=== PATIENT | male | born 1980 | race Caucasian/White ===

== ENCOUNTER 2018-01-30 08:19 | Emergency (ER) | payer OTHER ==
--- NOTE | 2018-01-30 10:04 | RAD REPORT ---
EXAM DESCRIPTION: RAD - Hand Left 3 View - 01/30/2018 9:30 am CLINICAL HISTORY: Pain;Swelling;Animal bite Puncture wounds. COMPARISON: No comparisons FINDINGS: No fracture, dislocation or radiopaque foreign body is appreciated. No worrisome subcutane ous gas. Soft tissue swelling is present particularly about the first digit and thenar region.
--- NOTE | 2018-01-30 10:11 | EDPHYS ---
Physician Documentation [facility] Name: Flakito Claudio Age: 37 yrs Sex: Male : 1980 Arrival Date: 01/30/2018 Time: 08:23 Bed 13 Private MD: None, None ED Physician Elias Marshall HPI: 01/30 09:26 This 37 yrs old Male presents to ER via Ambulatory with complaints of Dog rn Bite. 09:26 The patient was bitten on the left hand. Onset: The symptoms/episode began/occurred rn yesterday. Animal information: Animal's vaccinations are up to date. Secondary to the bite the patient reports swelling. Severity of symptoms: At their worst the symptoms were mild, in the emergency department the symptoms are unchanged. The patient has not experienced similar symptoms in the past. Reports his polish olguin bit him on left hand yesterday, vaccines UTD, reports woke up with worse swelling and pain, no drainage, no fever. . Historical: - Allergies: 08:51 No Known Allergies; hb - Home Meds: 08:51 None [Active]; hb - PMHx: 08:51 None; hb - PSHx: 08:51 Intussusception; hb - Immunization history:: Adult Immunizations up to date. - Social history:: Smoking status: Patient uses tobacco products, smokes one pack cigarettes per day. - Ebola Screening: : No symptoms or risks identified at this time. - Family history:: not pertinent. - Hospitalizations: : No recent hospitalization is reported. ROS: 09:26 Constitutional: Negative for fever, chills, and weight loss, MS/Extremity: + left hand rn dog bite and swelling Exam: 09:26 Constitutional: This is a well developed, well nourished patient who is awake, alert, rn and in no acute distress. MS/ Extremity: Pulses equal, no cyanosis. Neurovascular intact. No fusiform digits, no fluctuance, + 3 puncture wounds to left hand around dorsum and volar base of thumb. No proximal streaking. Vital Signs: 08:48 BP 151 / 100; Pulse 76; Resp 15; Temp 98.8; Pulse Ox 100% ; Weight 81.65 kg; Height 5 hb ft. 3 in. (160.02 cm); Pain 8/10; 09:45 BP 134 / 92; Pulse 74; Resp 14; Pulse Ox 100% on R/A; hb 08:48 Body Mass Index 31.89 (81.65 kg, 160.02 cm) hb MDM: 09:08 Patient medically screened. rn 10:09 Differential diagnosis: superficial laceration, tendon injury, cellulitis. Data rn reviewed: vital signs, nurses notes, radiologic studies, plain films, and as a result, I will discharge patient. Counseling: I had a detailed discussion with the patient and/or guardian regarding: the historical points, exam findings, and any diagnostic results supporting the discharge/admit diagnosis, radiology results, the need for outpatient follow up, to return to the emergency department if symptoms worsen or persist or if there are any questions or concerns that arise at home. Special discussion: I discussed with the patient/guardian in detail that at this point there is no indication for admission to the hospital. It is understood, however, that if the symptoms persist or worsen the patient needs to return immediately for re-evaluation. 01/30 09:13 Order name: XRAY Hand LEFT 3 View; Complete Time: 10:09 rn Administered Medications: No medications were administered Disposition: 01/30/18 10:10 Discharged to Home. Impression: Bitten by dog, Cellulitis of left upper limb. - Condition is Stable. - Discharge Instructions: Cellulitis, Animal Bite. - Prescriptions for Augmentin 875- 125 mg Oral Tablet - take 1 tablet by ORAL route every 12 hours for 10 days; 20 tablet. Clindamycin HCl 300 mg Oral Capsule - take 1 capsule by ORAL route every 6 hours for 10 days; 40 capsule. - Medication Reconciliation Form, Thank You Letter, Antibiotic Education, Prescription Opioid Use, Work release form form. - Follow up: Fam Caldwell MD; When: 5 - 6 days; Reason: Recheck today's complaints, Re-evaluation by your physician. - Problem is new. - Symptoms have improved. Signatures: Dispatcher [employer] EDMS Elias Marshall MD MD rn Baxter, Heather, RN RN Corrections: (The following items were deleted from the chart) 10:31 10:10 01/30/2018 10:10 Discharged to Home. Impression: Bitten by dog; Cellulitis of hb left upper limb. Condition is Stable. Forms are Medication Reconciliation Form, Thank You Letter, Antibiotic Education, Prescription Opioid Use. Follow up: Fam Caldwell; When: 5 - 6 days; Reason: Recheck today's complaints, Re-evaluation by your physician. Problem is new. Symptoms have improved. rn
--- NOTE | 2018-01-30 10:11 | ER ---
Nurse's Notes [facility] Name: Flakito Claudio Age: 37 yrs Sex: Male : 1980 Arrival Date: 01/30/2018 Time: 08:23 Bed 13 Private MD: None, None Diagnosis: Bitten by dog;Cellulitis of left upper limb Presentation: 01/30 08:49 Presenting complaint: Patient states: Bit on LEFT hand by family dog yesterday, c/o hb swelling and pain 8/10. Vaccines up to date. Transition of care: patient was not received from another setting of care. Onset of symptoms was January 29, 2018. Risk Assessment: Do you want to hurt yourself or someone else? Patient reports no desire to harm self or others. Initial Sepsis Screen: Does the patient meet any 2 criteria? No. Patient's initial sepsis screen is negative. Does the patient have a suspected source of infection? No. Patient's initial sepsis screen is negative. Care prior to arrival: None. 08:49 Method Of Arrival: Ambulatory hb 08:49 Acuity: SUJATHA 3 hb Triage Assessment: 09:00 Bite description: bite sustained to left hand by a dog, animal information: hb vaccination(s) is current. Historical: - Allergies: 08:51 No Known Allergies; hb - Home Meds: 08:51 None [Active]; hb - PMHx: 08:51 None; hb - PSHx: 08:51 Intussusception; hb - Immunization history:: Adult Immunizations up to date. - Social history:: Smoking status: Patient uses tobacco products, smokes one pack cigarettes per day. - Ebola Screening: : No symptoms or risks identified at this time. - Family history:: not pertinent. - Hospitalizations: : No recent hospitalization is reported. Screenin:52 Abuse screen: Denies threats or abuse. Denies injuries from another. Nutritional hb screening: No deficits noted. Tuberculosis screening: No symptoms or risk factors identified. Fall Risk None identified. Assessment: 08:52 General: Appears in no apparent distress. Behavior is calm, cooperative. Pain: Pain hb currently is 8 out of 10 on a pain scale. Neuro: Level of Consciousness is awake, alert, obeys commands, Oriented to person, place, time, situation. Cardiovascular: Capillary refill < 3 seconds Patient's skin is warm and dry. Respiratory: Airway is patent Respiratory effort is even, unlabored, Respiratory pattern is regular, symmetrical. GI: No signs and/or symptoms were reported involving the gastrointestinal system. : No signs and/or symptoms were reported regarding the genitourinary system. EENT: No signs and/or symptoms were reported regarding the EENT system. Derm: Skin is healthy with good turgor, Skin is pink, warm \T\ dry. Musculoskeletal: No signs and/or symptoms reported regarding the musculoskeletal system. Injury Description: Bite sustained to left hand caused by a dog, is from animal, was sustained 12-24 hours ago. 09:45 Reassessment: Patient appears in no apparent distress at this time. No changes from previously documented assessment. Patient and/or family updated on plan of care and expected duration. Pain level reassessed. Patient is alert, oriented x 3, equal unlabored respirations, skin warm/dry/pink. Vital Signs: 08:48 BP 151 / 100; Pulse 76; Resp 15; Temp 98.8; Pulse Ox 100% ; Weight 81.65 kg; Height 5 hb ft. 3 in. (160.02 cm); Pain 8/10; 09:45 BP 134 / 92; Pulse 74; Resp 14; Pulse Ox 100% on R/A; hb 08:48 Body Mass Index 31.89 (81.65 kg, 160.02 cm) hb ED Course: 08:23 Patient arrived in ED. mr 08:23 None, None is Private Physician. mr 08:48 Jennifer Oneil, RN is Primary Nurse. hb 08:50 Triage completed. hb 08:52 Arm band placed on right wrist. hb 08:52 Patient has correct armband on for positive identification. Bed in low position. Call hb light in reach. Side rails up X 1. 09:08 Elias Marshall MD is Attending Physician. rn 09:27 X-ray completed. Portable x-ray completed in exam room. Patient tolerated procedure sw well. 09:28 XRAY Hand LEFT 3 View In Process Unspecified. EDMS 10:10 Fam Caldwell MD is Referral Physician. rn 10:30 No provider procedures requiring assistance completed. Patient did not have IV access hb during this emergency room visit. Administered Medications: No medications were administered Outcome: 10:10 Discharge ordered by . rn 10:30 Discharged to home ambulatory. hb 10:30 Condition: stable 10:30 Discharge instructions given to patient, Instructed on discharge instructions, follow up and referral plans. medication usage, wound care, Demonstrated understanding of instructions, follow-up care, medications, wound care, Prescriptions given X 2. 10:31 Patient left the ED. hb Signatures: Dispatcher [employer] EDNE Lizzy Solorzano Roman, MD MD rn Warren, Shannon sw Baxter, Heather, RN RN hb
== END 2018-01-30 10:31 | disposition home or self-care (01) ==
LOC: ER 08:19
DX: L03.114 Cellulitis of left upper limb (principal); S41.152A Open bite of left upper arm, initial encounter; F17.210 Nicotine dependence, cigarettes, uncomplicated; W54.0XXA Bitten by dog, initial encounter; Y93.89 Activity, other specified; Y92.9 Unspecified place or not applicable; Y99.9 Unspecified external cause status
CPT/HCPCS: 99283

== ENCOUNTER 2018-09-08 12:38 | Emergency (ER) | payer OTHER, SELFPAY ==
[2018-09-08 13:54] LABS: Absolute Lymphocytes (CBC) 0.6 K/uL (0.7-4.9); Absolute Monocytes 0.2 K/uL (0.1-1.3); Basophils % 0.2 % (0-1.3); Eosinophils % 0.1 % (0-4.4); Hematocrit 44.7 % (39.6-49.0); Lymphocytes % 15.6 % (15.3-44.8); MPV 8.3 fL (7.6-11.3); Monocytes % 5.9 % (3.3-12.3); RBC Red Blood Cell Count 4.89 M/uL (4.33-5.43)
[2018-09-08 14:11] LABS: Albumin 3.9 g/dL (3.4-5.0); Bilirubin Direct 0.3 mg/dL (0-0.2); Bilirubin Total 1.2 mg/dL (0.2-1.0); Potassium 3.2 mmol/L (3.5-5.1)
[2018-09-08] MEDS ORDERED: NA CHLORIDE 0.9% 1,000 ML ONE (14:16)
[2018-09-08 14:36] LABS: Urine Blood NEGATIVE (NEG); Urine Glucose NEGATIVE (NEG); Urine Protein 2+ (NEG); Urine pH 5.5 (5.0-7.0)
--- NOTE | 2018-09-08 14:47 | RAD REPORT ---
EXAM DESCRIPTION: CTAbdomen Pelvis W Contrast - 09/08/2018 2:38 pm CLINICAL HISTORY: Abdominal pain. iv only;Abd pain COMPARISON: No comparisons TECHNIQUE: Biphasic CT imaging of the abdomen and pelvis was performed with 100 ml non-ionic IV cont rast. All CT scans are performed using dose optimization technique as appropriate and may include automated exposure control or mA/KV adjustment according to patient size. FINDINGS: The lung bases are clear.Small gallbladder stone may be present. The liver, spleen, pancreas, adrenal glands and kidneys are within normal limits. No bowel obstruction, free air, free fluid or abscess. The appendix is not identified as a discrete structure, however, no secondary findings of appendicitis are identified. No evidence of significan t lymphadenopathy. No suspicious bony findings. Small bilateral fat containing inguinal hernias. IMPRESSION: No acute intra-abdominal or pelvic finding. Equivocal cholelithiasis.
--- NOTE | 2018-09-08 16:18 | ER ---
Nurse's Notes [facility] Name: Flakito Claudio Age: 37 yrs Sex: Male : 1980 Arrival Date: 09/08/2018 Time: 12:41 Bed 30 Private MD: Diagnosis: Diarrhea, unspecified;Abdominal and pelvic pain Presentation: 09/08 13:12 Presenting complaint: Patient states: pt reports abdominal pain since , not tl3 tolerating PO intake, tactile fever last pm, diarrhea since as well. Transition of care: patient was not received from another setting of care. Onset of symptoms was September 03, 2018. Risk Assessment: Do you want to hurt yourself or someone else? Patient reports no desire to harm self or others. Initial Sepsis Screen: Does the patient meet any 2 criteria? No. Patient's initial sepsis screen is negative. Does the patient have a suspected source of infection? No. Patient's initial sepsis screen is negative. Care prior to arrival: None. 13:12 Method Of Arrival: Ambulatory tl3 13:12 Acuity: SUJATHA 3 tl3 Triage Assessment: 13:16 General: Appears uncomfortable, well groomed, well developed, well nourished, Behavior tl3 is calm, cooperative, appropriate for age. Pain: Complains of pain in abdomen. EENT: No signs and/or symptoms were reported regarding the EENT system. Neuro: Level of Consciousness is awake, alert, obeys commands, Oriented to person, place, time, situation, Appropriate for age. Cardiovascular: Patient's skin is warm and dry. Respiratory: Airway is patent Respiratory effort is even, unlabored, Respiratory pattern is regular, symmetrical. GI: Abdomen is round. : No signs and/or symptoms were reported regarding the genitourinary system. Historical: - Allergies: 13:16 No Known Allergies; tl3 - Home Meds: 13:16 None [Active]; tl3 - PMHx: 13:16 intussusception; tl3 - Immunization history:: Adult Immunizations up to date. - Social history:: Smoking status: Patient uses tobacco products, smokes one pack cigarettes per day. Patient uses alcohol, occasionally. street drugs, marijuana. - Ebola Screening: : No symptoms or risks identified at this time. Screenin:19 Abuse screen: Denies threats or abuse. Nutritional screening: No deficits noted. tl3 Tuberculosis screening: No symptoms or risk factors identified. Fall Risk None identified. Assessment: 13:19 Reassessment: No changes from previously documented assessment. tl3 14:09 Reassessment: Patient appears in no apparent distress at this time. No changes from tl3 previously documented assessment. Patient and/or family updated on plan of care and expected duration. Pain level reassessed. Patient is alert, oriented x 3, equal unlabored respirations, skin warm/dry/pink. 15:23 Reassessment: Patient appears in no apparent distress at this time. No changes from tl3 previously documented assessment. Patient and/or family updated on plan of care and expected duration. Pain level reassessed. Patient is alert, oriented x 3, equal unlabored respirations, skin warm/dry/pink. obtained stool sample and sent to lab. 16:08 Reassessment: Patient appears in no apparent distress at this time. No changes from tl3 previously documented assessment. Patient and/or family updated on plan of care and expected duration. Pain level reassessed. Patient is alert, oriented x 3, equal unlabored respirations, skin warm/dry/pink. pt sleeping, arouses easily. 16:30 Reassessment: Patient appears in no apparent distress at this time. No changes from tl3 previously documented assessment. Patient and/or family updated on plan of care and expected duration. Pain level reassessed. Patient is alert, oriented x 3, equal unlabored respirations, skin warm/dry/pink. pt being discharged. 16:31 GI: Bowel sounds present X 4 quads. Abd is soft and non tender. tl3 Vital Signs: 13:16 BP 117 / 62; Pulse 78; Resp 18; Pulse Ox 97% ; tl3 14:09 BP 128 / 75; Pulse 75; Resp 18; Pulse Ox 97% on R/A; tl3 16:08 BP 137 / 85; Pulse 64; Resp 18; Pulse Ox 99% on R/A; tl3 ED Course: 12:41 Patient arrived in ED. rg4 13:04 Christin Hunter, JESSICA is Primary Nurse. tl3 13:06 Reid Haque PA is PHCP. jr8 13:06 Francisco Whiteside MD is Attending Physician. jr8 13:14 Triage completed. tl3 13:16 Arm band placed on right wrist. tl3 13:19 Patient has correct armband on for positive identification. Bed in low position. Call tl3 light in reach. Side rails up X 1. Pulse ox on. NIBP on. 13:19 No provider procedures requiring assistance completed. tl3 13:40 Initial lab(s) drawn, by me, sent to lab. Inserted saline lock: 20 gauge in right jp3 antecubital area, using aseptic technique. Blood collected. 13:47 Warm blanket given. jp3 13:47 Basic Metabolic Panel Sent. jp3 13:47 CBC with Diff Sent. jp3 13:47 Creatinine for Radiology Sent. jp3 13:47 Hepatic Function Sent. jp3 13:47 Lipase Sent. jp3 14:38 CT completed. Patient moved to CT. Patient moved back from CT. ga 14:39 CT Abd/Pelvis - W/Contrast In Process Unspecified. EDDE 16:16 Ryland Alvarenga MD is Referral Physician. jr8 16:30 IV discontinued, intact, bleeding controlled, No redness/swelling at site. Pressure tl3 dressing applied. Administered Medications: 14:09 Drug: NS 0.9% 1000 ml Route: IV; Rate: 1000 ml; Site: right antecubital; Delivery: tl3 Primary tubing; 15:55 Follow up: IV Status: Completed infusion; IV Intake: 1000ml tl3 Intake: 15:55 IV: 1000ml; Total: 1000ml. tl3 Outcome: 16:16 Discharge ordered by . jr8 16:30 Discharged to home ambulatory. tl3 16:30 Condition: stable 16:30 Discharge instructions given to patient, family, Instructed on discharge instructions, follow up and referral plans. medication usage, Demonstrated understanding of instructions, follow-up care, medications, Prescriptions given X 3. 16:31 Patient left the ED. tl3 Signatures: Dispatcher [employer] EDDE Reid Haque PA PA jr8 Kallie Ray4 Manpreet Whitmore Tammy, RN RN tl3 John Gonzalez jp3
--- NOTE | 2018-09-08 16:18 | EDPHYS ---
Physician Documentation [facility] Name: Flakito Claudio Age: 37 yrs Sex: Male : 1980 Arrival Date: 09/08/2018 Time: 12:41 Bed 30 Private MD: ED Physician Francisco Whiteside HPI: 09/08 13:25 This 37 yrs old Male presents to ER via Ambulatory with complaints of jr8 Abdominal Pain. 13:25 The patient presents with abdominal pain in the epigastric area, in the upper abdomen. jr8 Onset: The symptoms/episode began/occurred acutely, 5 day(s) ago. The symptoms do not radiate. Associated signs and symptoms: Pertinent positives: diarrhea, Pertinent negatives: nausea and vomiting. The symptoms are described as crampy. Modifying factors: The symptoms are alleviated by nothing, the symptoms are aggravated by food. Severity of pain: At its worst the pain was moderate in the emergency department the pain is unchanged. The patient has not experienced similar symptoms in the past. The patient has not recently seen a physician. Historical: - Allergies: 13:16 No Known Allergies; tl3 - Home Meds: 13:16 None [Active]; tl3 - PMHx: 13:16 intussusception; tl3 - Immunization history:: Adult Immunizations up to date. - Social history:: Smoking status: Patient uses tobacco products, smokes one pack cigarettes per day. Patient uses alcohol, occasionally. street drugs, marijuana. - Ebola Screening: : No symptoms or risks identified at this time. ROS: 13:25 Eyes: Negative for injury, pain, redness, and discharge, ENT: Negative for injury, jr8 pain, and discharge, Neck: Negative for injury, pain, and swelling, Cardiovascular: Negative for chest pain, palpitations, and edema, Respiratory: Negative for shortness of breath, cough, wheezing, and pleuritic chest pain, Back: Negative for injury and pain, MS/Extremity: Negative for injury and deformity, Skin: Negative for injury, rash, and discoloration, Neuro: Negative for headache, weakness, numbness, tingling, and seizure. 13:25 Abdomen/GI: Positive for abdominal pain, diarrhea, abdominal cramps, rectal bleeding, Negative for nausea and vomiting, abdominal distension, anorexia, dysphagia, hematemesis, black/tarry stool, rectal pain, bowel incontinence, flatulence. Exam: 13:25 Eyes: Pupils equal round and reactive to light, extra-ocular motions intact. Lids and jr8 lashes normal. Conjunctiva and sclera are non-icteric and not injected. Cornea within normal limits. Periorbital areas with no swelling, redness, or edema. ENT: Nares patent. No nasal discharge, no septal abnormalities noted. Tympanic membranes are normal and external auditory canals are clear. Oropharynx with no redness, swelling, or masses, exudates, or evidence of obstruction, uvula midline. Mucous membranes moist. Neck: Trachea midline, no thyromegaly or masses palpated, and no cervical lymphadenopathy. Supple, full range of motion without nuchal rigidity, or vertebral point tenderness. No Meningismus. Cardiovascular: Regular rate and rhythm with a normal S1 and S2. No gallops, murmurs, or rubs. Normal PMI, no JVD. No pulse deficits. Respiratory: Lungs have equal breath sounds bilaterally, clear to auscultation and percussion. No rales, rhonchi or wheezes noted. No increased work of breathing, no retractions or nasal flaring. Back: No spinal tenderness. No costovertebral tenderness. Full range of motion. Skin: Warm, dry with normal turgor. Normal color with no rashes, no lesions, and no evidence of cellulitis. MS/ Extremity: Pulses equal, no cyanosis. Neurovascular intact. Full, normal range of motion. Neuro: Awake and alert, GCS 15, oriented to person, place, time, and situation. Cranial nerves II-XII grossly intact. Motor strength 5/5 in all extremities. Sensory grossly intact. Cerebellar exam normal. Normal gait. 13:25 Abdomen/GI: Inspection: abdomen appears normal, Bowel sounds: hyperactive, in all quadrants, Palpation: soft, in all quadrants, moderate abdominal tenderness, in the epigastric area, right upper quadrant and right lower quadrant, mass, is not appreciated, rebound tenderness, is not appreciated, voluntary guarding, is not appreciated, involuntary guarding, is not appreciated, no appreciated organomegaly, Indicators: McBurney's point is not tender, Contreras's sign is negative, Rovsing's sign is negative, Liver: tenderness, is not appreciated. Vital Signs: 13:16 BP 117 / 62; Pulse 78; Resp 18; Pulse Ox 97% ; tl3 14:09 BP 128 / 75; Pulse 75; Resp 18; Pulse Ox 97% on R/A; tl3 16:08 BP 137 / 85; Pulse 64; Resp 18; Pulse Ox 99% on R/A; tl3 MDM: 13:06 Patient medically screened. jr8 16:15 Data reviewed: vital signs, nurses notes, lab test result(s), radiologic studies, CT jr8 scan, and as a result, I will discharge patient. Data interpreted: Pulse oximetry: on room air is 99 %. Interpretation: normal. Counseling: I had a detailed discussion with the patient and/or guardian regarding: the historical points, exam findings, and any diagnostic results supporting the discharge/admit diagnosis, lab results, radiology results, the need for outpatient follow up, a family practitioner, a rfid specialist, to return to the emergency department if symptoms worsen or persist or if there are any questions or concerns that arise at home. Response to treatment: the patient's symptoms have mildly improved after treatment. 09/08 13:27 Order name: Basic Metabolic Panel; Complete Time: 14:16 [facility] 09/08 13:27 Order name: CBC with Diff; Complete Time: 14:05 09/08 13:27 Order name: Creatinine for Radiology; Complete Time: 14:11 09/08 13:27 Order name: Hepatic Function; Complete Time: 14:16 09/08 13:27 Order name: Lipase; Complete Time: 14:16 09/08 14:26 Order name: Urine Dipstick--Ancillary (enter results); Complete Time: 14:40 09/08 13:27 Order name: IV Saline Lock; Complete Time: 13:47 09/08 14:05 Order name: CT Abd/Pelvis - W/Contrast; Complete Time: 14:53 09/08 14:59 Order name: Stool Culture 09/08 14:59 Order name: Ova And Parasites 09/08 14:59 Order name: Occult Blood 09/08 14:59 Order name: Fecal Leukocyte Stain; Complete Time: 16:12 09/08 14:59 Order name: CDIFF 09/08 13:27 Order name: Labs collected and sent; Complete Time: 13:47 09/08 13:27 Order name: Urine Dipstick-Ancillary (obtain specimen); Complete Time: 15:23 jr8 Administered Medications: 14:09 Drug: NS 0.9% 1000 ml Route: IV; Rate: 1000 ml; Site: right antecubital; Delivery: tl3 Primary tubing; 15:55 Follow up: IV Status: Completed infusion; IV Intake: 1000ml tl3 Disposition: 17:49 Co-signature as Attending Physician, Francisco Whiteside MD. Disposition: 09/08/18 16:16 Discharged to Home. Impression: Diarrhea, unspecified, Abdominal and pelvic pain. - Condition is Stable. - Discharge Instructions: Abdominal Pain, Adult, Diarrhea, Adult. - Prescriptions for Bentyl 20 mg Oral Tablet - take 1 tablet by ORAL route every 6 hours As needed; 20 tablet. Cipro 500 mg Oral Tablet - take 1 tablet by ORAL route every 12 hours for 10 days; 20 tablet. Flagyl 500 mg Oral Tablet - take 1 tablet by ORAL route every 6 hours for 10 days; 40 tablet. - Medication Reconciliation Form, Thank You Letter, Antibiotic Education, Prescription Opioid Use form. - Follow up: Ryland Alvarenga MD; When: 5 - 6 days; Reason: Recheck today's complaints, Continuance of care, Re-evaluation by your physician. - Problem is new. - Symptoms have improved. Signatures: Dispatcher [employer] EDMS Reid Haque PA PA jr8 Francisco Whiteside MD MD Christin Hunter RN RN tl3 Corrections: (The following items were deleted from the chart) 16:31 16:16 09/08/2018 16:16 Discharged to Home. Impression: Diarrhea, unspecified; Abdominal tl3 and pelvic pain. Condition is Stable. Forms are Medication Reconciliation Form, Thank You Letter, Antibiotic Education, Prescription Opioid Use. Follow up: Ryland Alvarenga; When: 5 - 6 days; Reason: Recheck today's complaints, Continuance of care, Re-evaluation by your physician. Problem is new. Symptoms have improved. jr8
== END 2018-09-08 16:31 | disposition home or self-care (01) ==
LOC: ER 12:38
DX: R19.7 Diarrhea, unspecified (principal); F17.210 Nicotine dependence, cigarettes, uncomplicated
CPT/HCPCS: 36415; 74177; 80048; 80076; 81003; 83690; 85025; 87045; 87046; 87177; 87209; 87493; 89055; 96360; 96361; 99284; J7030; Q9967

== ENCOUNTER 2020-11-01 03:32 | Emergency (ER) | payer SELFPAY ==
--- NOTE | 2020-11-01 04:38 | ER ---
Nurse's Notes [facility] Name: Flakito Claudio Age: 40 yrs Sex: Male : 1980 Arrival Date: 11/01/2020 Time: 03:33 Bed Waiting Private MD: Diagnosis: Presentation: 11/01 03:51 Chief complaint: Patient states: last night at approx 2200 he started having abdominal bb pain took some tums but they are not helping pain is worse denies vomiting or diarrhea, can't remember his last bowel movement. Coronavirus screen: At this time, the client does not indicate any symptoms associated with coronavirus-19. Ebola Screen: No symptoms or risks identified at this time. Initial Sepsis Screen: Does the patient meet any 2 criteria? No. Patient's initial sepsis screen is negative. Does the patient have a suspected source of infection? No. Patient's initial sepsis screen is negative. Risk Assessment: Do you want to hurt yourself or someone else? Patient reports no desire to harm self or others. Onset of symptoms was October 31, 2020. 03:51 Method Of Arrival: Wheelchair bb 03:51 Acuity: SUJATHA 3 bb 04:37 Note pt told registration he did not want to wait so he left the ED. bb Triage Assessment: 03:54 General: Appears uncomfortable, Behavior is agitated, anxious. Pain: Complains of pain bb in abdomen Pain currently is 10 out of 10 on a pain scale. Neuro: Level of Consciousness is awake, alert, obeys commands, Oriented to person, place, time, situation. Cardiovascular: No deficits noted. Respiratory: No deficits noted. GI: Abdomen is distended, Reports upper abdominal pain, Patient currently denies diarrhea, vomiting. Derm: Skin is clammy, Skin is pink. Musculoskeletal: Circulation, motion, and sensation intact. Historical: - Allergies: 03:54 No Known Allergies; bb - Home Meds: 03:54 Abilify oral oral [Active]; trazodone Oral [Active]; Prazosin Oral [Active]; bb - PMHx: 03:54 intussusception; Bipolar disorder; Hypertension; bb - PSHx: 03:54 abdominal surgery as a baby; bb - Immunization history:: Adult Immunizations up to date. - Social history:: Smoking status: Patient reports the use of cigarette tobacco products, smokes one pack cigarettes per day. Patient/guardian denies using alcohol. Vital Signs: 03:51 BP 127 / 94; Pulse 58; Resp 20 S; Temp 97.7(O); Pulse Ox 100% on R/A; Weight 95.25 kg bb (R); Height 5 ft. 2 in. (157.48 cm) (R); Pain 10/10; 03:51 Body Mass Index 38.41 (95.25 kg, 157.48 cm) ED Course: 03:33 Patient arrived in ED. am4 03:53 Triage completed. bb 03:54 Arm band placed on. bb Administered Medications: No medications were administered Outcome: 04:37 Patient left the ED. bb Signatures: Chel Abebe RN RN bb Johanna Cote [facility]
[2020-11-01 04:43] VITALS: BP 127/94; TEMP 97.7; O2SAT 100
== END 2020-11-01 04:37 | disposition left against medical advice (07) ==
LOC: ER 03:32
DX: Z02.9 Encounter for administrative examinations, unspecified (principal)
CPT/HCPCS: 99281

== ENCOUNTER 2023-03-03 05:28 | Observation (INO) | payer SELFPAY ==
--- OUTSIDE RECORDS SUMMARY | 2023-03-03 05:30 | XMS REPORT | Continuity of Care Document ---
:1980 Author Organization [facility] t Address [address] [place] [address] [place] [id number] Care Team Providers Name Role Phone PCP, PATIENT DOES NOT HAVE A Primary Care Physician UnavailARETHA Boyd Attending Clinician Unavailable Aretha Kline MD Attending Clinician River Pabon MD Attending Clinician Doctor Unassigned, [place] Attending Clinician Unavailable Wicho Stevens DO Attending Clinician WICHO STEVENS Attending Clinician Unavailable Mayte Roberson Attending Clinician ARETHA KLINE Admitting Clinician Unavailable Problems Condition Condition Condition Status Onset Resolution Last Treating Co mments Source Name Details Category Date Date Treatment Clinician Date No known No known Disease Unive rs active active ity of problems problems [facility] Allergies, Adverse Reactions, Alerts Allergy Allergy Status Severity Reaction(s) Onset Inactive Treating Comm ents Source Name Type Date Date Clinician NO KNOWN Drug Active Univers ALLERGIE Class ity of S [facility] Social History Social Habit Start Date Stop Date Quantity Comments Source Exposure to 2022-05-16 2022-05-26 Not sure [facility] SARS-CoV-2 (event) 00:00:00 03:34:00 Medica l Branch Sex Assigned At [birth year] [facility] 00:00:00 00:00:00 Medical Branch Smoking Status Start Date Stop Date Source Tobacco smoking consumption Univ [facility] Medical unknown Branch Medications Ordered Filled Start Stop Current Ordering Indication Dosage Frequency Signature Comments Components Source Medication Medication Date Date Medication? Clinician (SIG) Name Name iopamidol 2021-07- No [id number] 100mL 100 mL, Univers (ISOVUE 0-30 10-30 Intravenou ity o f 370-500 mL) 11:30: 10:33 s, ONCE, 1 [place] injection 00 :00 dose, On Medica l 100 mL [place] 05/26/22 at 0630, Routine traMADoL 2021-07 Yes [id number] 50mg Take 1 Univers (ULTRAM) 50 0-30 tablet by ity of mg tablet 00:00: mouth [place] 00 every 6 Medical (six) Branch hours as needed for Pain (scale 7-10). Indication s: acute pain ondansetron 2021-07 Yes [id number] 4mg Take 1 Univers (ZOFRAN) 4 0-30 tablet by ity of mg tablet 00:00: mouth [place] 00 every 8 Medical (eight) Branch hours as needed for Nausea and Vomiting (N/V). TAKE ONE 2021-07 No (1) 0-11 CAPSULE(S) 00:00: BY MOUTH 00 THREE TIMES A DAY FOR 7 DAYS. 1 po q hs No 8-31 00:00: 00 TAKE ONE No 500 (1) 8-23 CAPSULE(S) 00:00: BY MOUTH 00 THREE TIMES A DAY FOR 7 DAYS. TAKE ONE No 500 (1) 8-23 CAPSULE(S) 00:00: BY MOUTH 00 THREE TIMES A DAY FOR 7 DAYS. cephALEXin 2020-07- No [id number] 500mg Take 1 Univers (KEFLEX) 0-05 10-13 capsule by ity of 500 mg 00:00: 04:59 mouth 3 [place] capsule 00 :00 (three) Medical times Branch daily for 7 days. dexamethaso 2020- No 10mg 10 mg, Uni vers ne 8-15 08-15 Intramuscu ity of (DECADRON 16:30: 15:26 lar, ONCE, [place] PHOSPHATE) 00 :00 1 dose, Medica l injection [place] 10 mg 03/11/21 at 1130, STAT predniSONE 0 Yes [id number] Take 3 Univers 20 mg 8-15 pills ity of tablet 00:00: daily for [place] 00 the first Medical 7 days, 2 Branch pills daily for the next 7 days, then 1 pill daily for the next 7 days predniSONE 2020- Yes Take 3 Univers 20 mg 8-15 pills ity of tablet 00:00: daily for [place] 00 the first Medical 7 days, 2 Branch pills daily for the next 7 days, then 1 pill daily for the next 7 days predniSONE Yes Take 3 Univers 20 mg 8-15 pills ity of tablet 00:00: daily for [place] 00 the first Medical 7 days, 2 Branch pills daily for the next 7 days, then 1 pill daily for the next 7 days predniSONE 2020- Yes Take 3 Univers 20 mg 8-15 pills ity of tablet 00:00: daily for [place] 00 the first Medical 7 days, 2 Branch pills daily for the next 7 days, then 1 pill daily for the next 7 days predniSONE 2020- Yes Take 3 Univers 20 mg 8-15 pills ity of tablet 00:00: daily for [place] the first Medical 7 days, 2 Branch pills daily for the next 7 days, then 1 pill daily for the next 7 days predniSONE 2020- Yes Take 3 Univers 20 mg 8-15 pills ity of tablet 00:00: daily for [place] the first Medical 7 days, 2 Branch pills daily for the next 7 days, then 1 pill daily for the next 7 days predniSONE Yes Take 3 Univers 20 mg 8-15 pills ity of tablet 00:00: daily for [place] the first Medical 7 days, 2 Branch pills daily for the next 7 days, then 1 pill daily for the next 7 days Vital Signs Vital Name Observation Time Observation Value Comments Source Systolic blood 2022-05-26 11:00:00 122 mm[Hg] Univer sity of pressure [facility] Diastolic blood 2022-05-26 11:00:00 89 mm[Hg] Unive rsity of pressure [facility] Heart rate 2022-05-26 11:00:00 66 /min [facility] Respiratory rate 2022-05-26 11:00:00 19 /min [facility] Oxygen saturation in 2022-05-26 11:00:00 98 /min [facility] Arterial blood by [facility] Pulse oximetry Branch Body temperature 2022-05-26 08:36:[address] [facility] Body height 2022-05-26 08:36:00 160 cm [facility] [place] [facility] Body weight 2022-05-26 08:36:00 86.183 kg [facility] [place] [facility] BMI 2022-05-26 08:36:00 33.66 kg/m2 [facility] [place] [facility] Systolic blood 2021-05-01 14:38:00 150 mm[Hg] Univer sity of pressure [place] [facility] Diastolic blood 2021-05-01 14:38:00 93 mm[Hg] Unive rsity of pressure [place] [facility] Heart rate 2021-05-01 14:38:00 78 /min [facility] [place] [facility] Body temperature 2021-05-01 14:38:00 37 Archana Univ ersity of [place] [facility] Respiratory rate 2021-05-01 14:38:00 20 /min Univ ersity of [place] [facility] Body weight 2021-05-01 14:38:00 84.823 kg Universi [facility] [place] [facility] Oxygen saturation in 2021-05-01 14:38:00 99 /min University of Arterial blood by [place] [employer] [facility] Pulse oximetry Branch Systolic blood 2021-03-11 15:12:00 137 mm[Hg] Univer sity of pressure [place] [facility] Diastolic blood 2021-03-11 15:12:00 80 mm[Hg] Unive rsity of pressure [place] [facility] Heart rate 2021-03-11 15:12:00 69 /min [facility] [place] [facility] Body temperature 2021-03-11 15:12:00 36.72 Archana Univ ers[facility] [place] [facility] Respiratory rate 2021-03-11 15:12:00 20 /min Univ ersity of [place] [facility] Body weight 2021-03-11 15:12:00 87.544 kg [facility] [place] [facility] Oxygen saturation in 2021-03-11 15:12:00 99 /min University of Arterial blood by [place] [employer] [facility] Pulse oximetry Branch BP Systolic 2022-05-07 13:43:00 128 mm[Hg] BP Diastolic 2022-05-07 13:43:00 87 mm[Hg] Weight Measured 2022-05-07 13:43:00 190.80 pounds Height Measured 2022-05-07 13:43:00 63.00 inches Body Temperature 2022-05-07 13:43:00 97.50 degrees Heart Rate 2022-05-07 13:43:00 85.00 /min Respiratory Rate 2022-05-07 13:43:00 24.00 /min Body Temperature 2022-03-20 16:16:00 98.20 degrees Heart Rate 2022-03-20 16:16:00 62.00 /min Respiratory Rate 2022-03-20 16:16:00 18.00 /min BP Systolic 2022-03-20 16:16:00 163 mm[Hg] BP Diastolic 2022-03-20 16:16:00 107 mm[Hg] Weight Measured 2022-03-20 16:16:00 192.20 pounds Height Measured 2022-03-20 16:16:00 63.00 inches BP Systolic 2019-01-26 12:07:00 143 mm[Hg] BP Diastolic 2019-01-26 12:07:00 102 mm[Hg] Weight Measured 2019-01-26 12:07:00 183.40 pounds Height Measured 2019-01-26 12:07:00 63.00 inches Body Temperature 2019-01-26 12:07:00 97.70 degrees Heart Rate 2019-01-26 12:07:00 75.00 /min Respiratory Rate 2019-01-26 12:07:00 Procedures Procedure Date / Time Performing Clinician Source Performed CT ABDOMEN PELVIS W 2022-05-26 10:36:00 Aretha Kline [facility] CONTRAST [facility] URINALYSIS 2022-05-26 10:17:00 Aretha Kline [facility] URINE DRUG (IMMUNOASSAY) 2022-05-26 10:17:00 [facility] [place] SCREEN CBC WITH DIFF 2022-05-26 08:38:00 Aretha Kline [facility] LIPASE 2022-05-26 08:38:00 Aretha Kline [facility] COMP. METABOLIC PANEL 2022-05-26 08:38:00 Aretha Kline [facility] ([id number]) [facility] NON [facility] 2021-07-09 06:01:00 Doctor Unassigned, No [facility] NOTICE OF PRIVACY 2021-05-01 14:32:24 Doctor Unassigned, No Univ [facility] PRACTICES Name [facility] CONSENT/REFUSAL FOR 2021-05-01 14:32:06 Doctor Unassigned, No Un iversity [facility] DIAGNOSIS AND TREATMENT Name [facility] Plan of Care Planned Activity Planned Date Details Comments Source Goal Plan of Care Note [code = 02547-9] Goal Plan of Care Note [code = 41973-2] Goal Plan of Care Note [code = 62900-5] Goal Plan of Care Note [code = 95710-1] Goal Plan of Care Note [code = 65743-0] Goal Plan of Care Note [code = 29423-8] Goal Plan of Care Note [code = 95079-6] Goal Plan of Care Note [code = 33513-5] Goal Plan of Care Note [code = 37812-4] Goal Plan of Care Note [code = 81581-3] Goal Plan of Care Note [code = 46542-4] Goal Plan of Care Note [code = 81001-4] Goal Plan of Care Note [code = 07135-2] Goal Plan of Care Note [code = 93120-7] Encounters Start End Encounter Admission Attending Care Care Encounter Source Date/Time Date/Time Type Type Clinicians Facility Department ID 2022-05-26 2022-05-26 Emergency X [facility] ERT [id number] Univers 03:32:00 06:21:00 [facility] 2022-05-26 2022-05-26 Emergency [facility] [id number] Univers 03:32:00 06:21:00 Aretha Mo BUCKHANNON [id number] ity [facility] 4.2.7.2.686 [facility] [id number] [address] 2022-05-07 2022-05-07 Outpatient [facility] IDANIA [id number] Nam 13:42:49 13:42:49 1011 F Babatunde 2022-05-07 2022-05-07 Outpatient [id number] 00:00:00 00:00:00 Visit [id number] [id number]-b -[id number] [id number] 2022-03-20 2022-03-20 Outpatient [id number] 00:00:00 00:00:00 Visit l04q-[id number] -[id number] [id number] [id number] 2021-07-09 2021-07-09 [facility] [id number] Univers 14:01:00 23:59:00 Encounter River HUSAIN'S 350.1.13.10 ity of [facility] [address] [place] [address] [phone] [facility] 060 Branch 2021-07-09 2021-07-09 Orders Doctor CLARA [id number] Univers 00:00:00 00:00:00 Only Unassigned, DONATO [id number] ity of [place] [facility] 4.2.7.2.686 Patricio as [id number] [facility] 009 Branch 2021-05-01 2021-05-01 Emergency [facility] [id number] Univers 09:41:00 10:48:00 Wicho Reed 350.1.13.10 i ty [facility] 4.2.7.2.686 [facility] [id number] [facility] 084 Branch 2021-05-01 2021-05-01 Emergency X S[facility]ER [facility] ERT [id number] Univers 09:32:00 09:32:00 WICHO pandey [facility] 2021-03-28 2021-03-28 Refill Robert [facility] [id number] Univers 00:00:00 00:00:00 [facility] [id number] it y of [place] 4.2.7.2.686 Patricio as Professio [id number] [place] [address] Branch [address] 2021-03-11 2021-03-11 Emergency Robert [facility] [id number] Univers 10:13:00 10:42:00 Mayte Reed 350.1.13.10 i ty of [place] 4.2.7.2.686 [facility] [id number] [facility] 084 Branch 2021-03-11 2021-03-11 Emergency X [facility] ERT [id number] Univers 10:07:00 10:07:00 ity of [facility] Results Test Description Test Time Test Comments Results Result Comments Source Complete Metabolic Panel 2022-05-26 10:05:27 Test Item Value Reference Range Interpretation Comme nts NA (test code = 5441732824) 142 mmol/L 135-145 K (test code = 3110652229) 3.9 mmol/L 3.5-5.0 CL (test code = 6709752320) 105 mmol/L 98-108 CO2 TOTAL (test code = 27 mmol/L 23-31 1983924226) AGAP (test code = 4492449864) 2-16 BUN (test code = 6790049384) 17 mg/dL 7-23 GLUCOSE (test code = 5073540041) 102 mg/dL 70-110 CREATININE (test code = 0.95 mg/dL 0.60-1.25 7865454722) TOTAL BILI (test code = 0.9 mg/dL 0.1-1.0 3154069734) CALCIUM (test code = 1060340546) 9.4 mg/dL 8.6-10.6 T PROTEIN (test code = 6.4 g/dL 6.3-8.2 0157919942) ALBUMIN (test code = 8662407141) 4.2 g/dL 3.5-5.0 ALK PHOS (test code = 8989887667) 59 U/L 34-122 ALTv (test code = 1742-6) 28 U/L 5-50 AST(SGOT) (test code = 26 U/L 13-40 8761500412) eGFR (test code = 4681190698) mL/min/1.73m2 RAUL (test code = RAUL) Association of Glomerular Filtration Rate (GFR) and Staging of Kidney Disease* + +--------- + ----+| GFR (mL/min/1.73 m2) ?| With Kidney Damage ?| ?Without Kidney Damage+ +--- + +| ?>90 ?| ?Stage one ?| ? Normal ?+ +-------- + -----+| ?60-89 ?| ?Stage two ?| ? Decreased GFR ? + +--------- + ----+| ?30-59 ?| ?Stage three ?| ? Stage three ? + +--------- + ----+| ?15-29 ?| ?Stage four ? | ? Stage four ?+ +-------- + -----+| ?<15 (or dialysis) ? ?| ?Stage five ? | ? Stage five ?+ +-------- + -----+ *Each stage assumes the associated GFR level has been in effect for at least three months. ?Stages 1 to 5, with or without kidney disease, indicate chronic kidney disease. Notes: Determination of stages one and two (with eGFR >59mL/min/1.73 m2) requires estimation of kidney damage for at least three months as defined by structural or functional abnormalities of the kidney, manifested by either:Pathological abnormalities or Markers of kidney damage (including abnormalities in the composition of the blood or urine or abnormalities in imaging tests). [facility] [id number] 10:05:07 Test Item Value Reference Range Interpretation Comments LIPASE (test code = 2778745031) 233 U/L 0-220 H Lab Interpretation (test code = Abnormal 53789-2) [facility] with [id number] 09:26:05 Test Item Value Reference Range Interpretation Comments WBC (test code = See_Comment [Automated 3603-2) message] The sy stem which generated this result transmitted reference range : 4.20 - 10.70 10*3/?L. The reference range was not used to interpret this result as normal/abnormal . RBC (test code = See_Comment [Automated 613-4) message] The sy stem which generated this result transmitted reference range : 4.26 - 5.52 10*6/?L. The reference range was not used to interpret this result as normal/abnormal . HGB (test code = 14.4 g/dL 12.2-16.4 258-7) HCT (test code = 40.7 % 38.4-49.3 4544-3) MCV (test code = 89.3 fL 81.7-95.6 787-2) MCH (test code = 31.6 pg 26.1-32.7 785-6) MCHC (test code = 35.4 g/dL 31.2-35.0 H 786-4) RDW-SD (test code = 40.9 fL 38.5-51.6 06529-3) RDW-CV (test code = 12.4 % 12.1-15.4 788-0) PLT (test code = See_Comment [Automated 777-3) message] The sy stem which generated this result transmitted reference range : 150 - 328 10*3/ ?L. The reference r kymberly was not used to interpret this result as normal/abnormal . MPV (test code = 10.2 fL 9.8-13.0 79816-0) NRBC/100 WBC (test See_Comment [Automat ed code = 1477698319) message] The system which generated this result transmitted reference range : 0.0 - 10.0 /100 WBCs. The refer ence range was not u sed to interpret th is result as normal/abnormal . NRBC x10^3 (test code See_Comment [Auto mated = 7052109061) message] The s ystem which generated this result transmitted reference range : 10*3/?L. The reference range was not used to interpret this result as normal/abnormal . GRAN MAT (NEUT) % 38.4 % (test code = 770-8) IMM GRAN % (test code 0.30 % = 2875873080) LYMPH % (test code = 50.3 % 736-9) MONO % (test code = 9.2 % 5905-5) EOS % (test code = 1.5 % 713-8) BASO % (test code = 0.3 % 706-2) GRAN MAT x10^3(ANC) 3.00 10*3/uL 1.99-6.95 (test code = 7177818525) IMM GRAN x10^3 (test 0.00-0.06 code = 5491299474) LYMPH x10^3 (test code 3.92 10*3/uL 1.09-3.23 H = 731-0) MONO x10^3 (test code 0.72 10*3/uL 0.36-1.02 = 742-7) EOS x10^3 (test code = 0.12 10*3/uL 0.06-0.53 711-2) BASO x10^3 (test code 0.01-0.09 = 704-7) Lab Interpretation Abnormal (test code = 85107-3) [facility] [id number] 03:35:41 Test Item Value Reference Range Interpretation Comments CHOLESTEROL (test 205 MG/DL <200 H code = 2210) TRIGLYCERIDES (test 187 MG/DL <150 H code = 2232) HDL CHOLESTEROL (test 45 MG/DL >39 code = 2220) CALC LDL CHOL (test 128 MG/DL <100 H NOTE: C ALCULATED LDL code = 2237) IS BASED ON ALECIA-NEGRON METHOD WHICHINCLUDES ADJUSTABLE TRIGLYCERIDE:VL DL CHOLESTEROL RAT IO.THIS FACTOR VARIES B Y MEASURED TRIGLY CERIDE AND NON-HDLCHOL ESTEROL CONCENTRATIONS WITH INCREASED CALCU LATED LDL SEENIN HIGH ER TRIGLYCERIDE OR LOWER NON-HDL SPECIME NS. FOR MOREINFORMATION , SEE CLIENT ANNOUNCE MENT AT [email or web address] RISK RATIO LDL/HDL 2.84 RATIO <3.55 (test code = 2238) COMPREHENSIVE METABOLIC [id number] 03:35:41 Test Item Value Reference Range Interpretation Comments GLUCOSE (test code = 92 MG/DL 70-99 2216) BUN (test code = 13 MG/DL 6-20 2207) CREATININE (test 1.05 MG/DL 0.80-1.40 code = 2214) eGFR (2020 CKD-EPI) 93 >60 (test code = 75048) ML/MIN/1.73 CALC BUN/CREAT (test 12 RATIO 6-28 code = 2235) SODIUM (test code = 143 MEQ/L 930-314 8225) POTASSIUM (test code 4.2 MEQ/L 3.5-5.4 = 2227) CHLORIDE (test code 103 MEQ/L 95-107 = 2214) CARBON DIOXIDE (test 29 MEQ/L 19-31 code = 2206) CALCIUM (test code = 9.7 MG/DL 8.5-10.5 2208) PROTEIN, TOTAL (test 7.1 G/DL 6.1-8.3 code = 2229) ALBUMIN (test code = 4.8 G/DL 3.5-5.2 2200) CALC GLOBULIN (test 2.3 G/DL 1.9-3.7 code = 2240) CALC A/G RATIO (test 2.1 RATIO 1.0-2.6 code = 2234) BILIRUBIN, TOTAL 0.6 MG/DL See_Comment [Automated message] (test code = 2207) The syste m which generated this result transmitted ref erence range: <=1.2. T he reference range was not used to int erpret this result as normal/abnormal . ALKALINE PHOSPHATASE 66 U/L 40-117 (test code = 2204) AST (test code = 19 U/L 9-50 2217) ALT (test code = 20 U/L 5-50 UNLESS OTH ERWISE 2218) INDICATED, ALL TESTING PERFORM ED ATCLINICAL PATH [facility]LOGY LAB[facility], [facility]. [address] [place], [place] [id number] [place] [address] DIRECTOR: MELVI PORTER M.D. CLIA NUMBER [id number] CAP ACCREDITATION N O. [id number] LIPID [id number] 00:00:00 Test Item Value Reference Range Interpretation Comments CHOLESTEROL (test code = 2210) 205 MG/DL TRIGLYCERIDES (test code = 2232) 187 MG/DL HDL CHOLESTEROL (test code = 2220) 45 MG/DL CALC LDL CHOL (test code = 2237) 128 MG/DL RISK RATIO LDL/HDL (test code = 2.84 RATIO 2238) LIPID [id number] 00:00:00 Test Item Value Reference Range Interpretation Comments CHOLESTEROL (test code = 2210) 205 MG/DL TRIGLYCERIDES (test code = 2232) 187 MG/DL HDL CHOLESTEROL (test code = 2220) 45 MG/DL CALC LDL CHOL (test code = 2237) 128 MG/DL RISK RATIO LDL/HDL (test code = 2.84 RATIO 2238) COMPREHENSIVE METABOLIC [id number] 00:00:00 Test Item Value Reference Range Interpretation Comments GLUCOSE (test code = 2217) 92 MG/DL BUN (test code = 2208) 13 MG/DL CREATININE (test code = 2214) 1.05 MG/DL eGFR (2020 CKD-EPI) (test code 93 ML/MIN/1.73 = 17431) CALC BUN/CREAT (test code = 12 RATIO 2235) SODIUM (test code = 2231) 143 MEQ/L POTASSIUM (test code = 2228) 4.2 MEQ/L CHLORIDE (test code = 2215) 103 MEQ/L CARBON DIOXIDE (test code = 29 MEQ/L 2206) CALCIUM (test code = 2209) 9.7 MG/DL PROTEIN, TOTAL (test code = 7.1 G/DL 2228) ALBUMIN (test code = 2201) 4.8 G/DL CALC GLOBULIN (test code = 2.3 G/DL 2240) CALC A/G RATIO (test code = 2.1 RATIO 2234) BILIRUBIN, TOTAL (test code = 0.6 MG/DL 2206) ALKALINE PHOSPHATASE (test 66 U/L code = 2204) AST (test code = 2218) 19 U/L ALT (test code = 2219) 20 U/L COMPREHENSIVE METABOLIC [id number] 00:00:00 Test Item Value Reference Range Interpretation Comments GLUCOSE (test code = 2217) 92 MG/DL BUN (test code = 2208) 13 MG/DL CREATININE (test code = 2214) 1.05 MG/DL eGFR (2020 CKD-EPI) (test code 93 ML/MIN/1.73 = 68364) CALC BUN/CREAT (test code = 12 RATIO 2235) SODIUM (test code = 2231) 143 MEQ/L POTASSIUM (test code = 2228) 4.2 MEQ/L CHLORIDE (test code = 2215) 103 MEQ/L CARBON DIOXIDE (test code = 29 MEQ/L 2206) CALCIUM (test code = 2209) 9.7 MG/DL PROTEIN, TOTAL (test code = 7.1 G/DL 2229) ALBUMIN (test code = 2201) 4.8 G/DL CALC GLOBULIN (test code = 2.3 G/DL 2240) CALC A/G RATIO (test code = 2.1 RATIO 2234) BILIRUBIN, TOTAL (test code = 0.6 MG/DL 2206) ALKALINE PHOSPHATASE (test 66 U/L code = 2204) AST (test code = 2218) 19 U/L ALT (test code = 2219) 20 U/L SARS-CoV-2 (COVID-19) by RT-PCR (HIGH RISK)2020-02-05 00:00:00 Test Item Value Reference Range Interpretation Comments SARS-CoV-2 INTERPRETATION NEGATIVE (test code = 52777) SOURCE (test code = 83065) NASOPHARYNGEAL SARS-CoV-2 (COVID-19) by RT-PCR (HIGH RISK)2020-02-05 00:00:00 Test Item Value Reference Range Interpretation Comments SARS-CoV-2 INTERPRETATION NEGATIVE (test code = 63442) SOURCE (test code = 42755) NASOPHARYNGEAL SARS-CoV-2 (COVID-19) by RT-PCR (HIGH RISK)2020-02-05 00:00:00 Test Item Value Reference Range Interpretation Comments SARS-CoV-2 INTERPRETATION NEGATIVE (test code = 22128) SOURCE (test code = 37299) NASOPHARYNGEAL SARS-CoV-2 (COVID-19) by RT-PCR (HIGH RISK)2020-02-05 00:00:00 Test Item Value Reference Range Interpretation Comments SARS-CoV-2 INTERPRETATION NEGATIVE (test code = 76529) SOURCE (test code = 14071) NASOPHARYNGEAL"
[2023-03-03 06:16] LABS: Absolute Lymphocytes (CBC) 2.9 K/uL (0.7-4.9); Hematocrit 38.5 % (39.6-49.0); Lymphocytes % 37.2 % (15.3-44.8); MCV 91.6 fL (80-100); MPV 8.9 fL (7.6-11.3); Platelets 208 thou/uL (152-406)
[2023-03-03] MEDS ORDERED: MORPHINE 4 MG/ML SYR ONE (06:26)
[2023-03-03] MEDS ORDERED: NA CHLORIDE 0.9% 1,000 ML ONE (06:26)
[2023-03-03] MEDS ORDERED: KETOROLAC 30 MG/ML INJ ONE ×2 (06:26→12:18)
[2023-03-03] MEDS ORDERED: ONDANSETRON 4 MG/2 ML VIAL ONE ×2 (06:26→12:19)
[2023-03-03] MEDS ORDERED: FAMOTIDINE 20 MG/2 ML VIAL IV ONE (06:26)
[2023-03-03] MEDS ORDERED: DICYCLOMINE HCL 20 MG/2 ML AMP IM ONE (06:26)
--- NOTE | 2023-03-03 07:27 | RAD REPORT ---
EXAM DESCRIPTION: US - Abdomen Exam Limited - 03/03/2023 7:02 am CLINICAL HISTORY: ABD PAIN COMPARISON: Abdomen Pelvis W Contrast dated 09/08/2018 TECHNIQUE: Sonographic grayscale and color flow images of the right upper abdominal quadrant were obtained. FINDINGS: The gallbladder demonstrates a single 1.1 cm shadowing gallstone near the neck, non mobile . Small volume sludge layering dependently near the fundus. No pericholecystic fluid or gallbladder w all thickening. The common bile duct is normal measuring 3 mm. The liver demonstrates no findings of intrahepatic biliary dilatation. IMPRESSION: Cholelithiasis and small volume of gallbladder sludge. No findings to suggest acute cholecystitis.
[2023-03-03 07:33] LABS: Albumin 3.2 g/dL (3.4-5.0); Bilirubin Total 0.3 mg/dL (0.2-1.0); Potassium 3.6 mEq/L (3.5-5.1); Protein, Total 6.3 g/dL (6.4-8.2)
[2023-03-03 08:01] LABS: Specific Gravity 1.013 (1.005-1.030); Urine Bilirubin NEGATIVE (Negative); Urine Blood Negative (Negative); Urine Clarity Clear (Clear); Urine Color Colorless (Yellow); Urine Glucose 1+ (Negative); Urine Protein NEGATIVE (Negative); Urine Urobilinogen Normal (Normal); Urine pH 6.5 (5.0-7.0)
--- NOTE | 2023-03-03 08:21 | RAD REPORT ---
EXAM DESCRIPTION: CT - Abdomen Pelvis W Contrast - 03/03/2023 8:11 am CLINICAL HISTORY: ABD PAIN COMPARISON: Abdomen Pelvis W Contrast dated 09/08/2018 TECHNIQUE: Thin cut axial CT imaging of the abdomen and pelvis was performed following intravenous a dministration of 100 mL Isovue 300. Multiplanar reformats were generated and reviewed. All CT scans are performed using dose optimization technique as appropriate and may include automated exposure control or mA/KV adjustment according to patient size. FINDINGS: No suspicious findings in the lung bases. The liver, spleen, and pancreas show no suspicious findings. Gallbladder shows minimal hyperdense slu dge or noncalcified tiny stones near the fundus. Trace amount of pericholecystic fluid. Symmetric renal function is seen with no hydronephrosis or suspicious renal mass. Incidentally noted sub centimeter right superior pole cortical cyst. No dilated bowel loops or bowel wall thickening. No free air, free fluid or inflammatory stranding. N o hernia, mass or bulky lymphadenopathy. The urinary bladder is without significant finding. No suspicious bony findings. IMPRESSION: Trace pericholecystic fluid. Please correlate clinically for evidence of acute cholecyst itis, and consider additional evaluation by ultrasound. Minimal sludge or noncalcified tiny stones ne ar the gallbladder. No other acute intra-abdominal process.
--- NOTE | 2023-03-03 08:46 | ER ---
Nurse's Notes [facility] Name: Flakito Claudio Age: 42 yrs Sex: Male : 1980 Arrival Date: 03/03/2023 Time: 05:28 Bed 14 Private MD: Diagnosis: Acute cholecystitis Presentation: 03/03 05:32 Chief complaint: Patient states: I have a history of stones in my gallbladder and I ha1 think it is causing me pain again. I have a horrible abdominal pain. 05:32 Coronavirus screen: Vaccine status:. Ebola Screen: No symptoms or risks identified at [facility] this time. Initial Sepsis Screen: Does the patient meet any 2 criteria? No. Patient's initial sepsis screen is negative. Does the patient have a suspected source of infection? No. Patient's initial sepsis screen is negative. Risk Assessment: Do you want to hurt yourself or someone else? Patient reports no desire to harm self or others. Onset of symptoms was March 03, 2023. 05:32 Method Of Arrival: Ambulatory [facility] 05:32 Acuity: SUJATHA 3 ha1 Triage Assessment: 05:32 General: Appears uncomfortable, Behavior is cooperative. Pain: Complains of pain in [facility] abdomen Pain does not radiate. Pain currently is 10 out of 10 on a pain scale. Quality of pain is described as crampy, throbbing, Pain began suddenly. Neuro: Level of Consciousness is awake, alert, obeys commands, Oriented to person, place, time, situation. Cardiovascular: Capillary refill < 3 seconds Patient's skin is warm and dry. Respiratory: Airway is patent Respiratory effort is even, unlabored, Respiratory pattern is regular, symmetrical. GI: Abdomen is round non-distended, Bowel sounds present X 4 quads. Reports lower abdominal pain, nausea. Musculoskeletal: Circulation, motion, and sensation intact. Range of motion:. Historical: - Allergies: 06:08 No Known Allergies; ha1 - PMHx: 06:08 Bipolar disorder; Hypertension; intussusception; ha1 - Immunization history:: Adult Immunizations unknown. - Social history:: Smoking status: Patient reports the use of cigarette tobacco products, smokes one-half pack cigarettes per day. - Family history:: not pertinent. Screenin:32 [facility] ED Fall Risk Assessment (Adult) History of falling in the last 3 months, ha1 including since admission No falls in past 3 months (0 pts) Confusion or Disorientation No (0 pts) Intoxicated or Sedated No (0 pts) Impaired Gait No (0 pts) Mobility Assist Device Used No (0 pt) Altered Elimination No (0 pt) Score/Fall Risk Level 0 - 2 = Low Risk Oriented to surroundings, Maintained a safe environment, Educated pt \T\ family on fall prevention, incl call for assistance when getting out of bed. Abuse screen: Denies threats or abuse. Denies injuries from another. Nutritional screening: No deficits noted. Tuberculosis screening: No symptoms or risk factors identified. Assessment: 05:32 Reassessment: see triage assessment. ha1 06:30 Reassessment: Patient and/or family updated on plan of care and expected duration. Pain ha1 level reassessed. Patient is alert, oriented x 3, equal unlabored respirations, skin warm/dry/pink. 06:45 Reassessment: Patient and/or family updated on plan of care and expected duration. Pain ha1 level reassessed. Patient is alert, oriented x 3, equal unlabored respirations, skin warm/dry/pink. pain 3/10. 07:15 Reassessment: RECD REPORT FROM REENA LOPEZ. 42YO WM P/W ABDOMINAL PAIN. bp 09:30 Reassessment: Patient appears in no apparent distress at this time. Patient is alert, bp oriented x 3, equal unlabored respirations, skin warm/dry/pink. ADMIT IN PROCESS. 10:34 Reassessment: PT MAHENDRA WITH OR. bp Vital Signs: 05:43 BP 168 / 105; Pulse 53; Resp 18; Temp 98.1; Pulse Ox 100% on R/A; Weight 83.91 kg; rv1 Height 5 ft. 2 in. ; Pain 7/10; 06:50 BP 144 / 91; Pulse 83; Resp 15; Pulse Ox 98% ; ha1 07:00 BP 137 / 89; Pulse 51; Resp 18 S; Pulse Ox 98% ; ha1 09:30 BP 128 / 97; Pulse 45; Resp 16; Pulse Ox 100% ; bp 05:43 Body Mass Index 33.84 (83.91 kg, 157.48 cm) rv1 05:43 Pain Scale: Adult rv1 ED Course: 05:29 Patient arrived in ED. am2 05:32 Patient has correct armband on for positive identification. Placed in gown. Bed in low ha1 position. Call light in reach. Side rails up X 1. 05:58 Yg Wynn MD is Attending Physician. sp4 06:05 Reena Mejias, RN is Primary Nurse. ha1 06:08 Triage completed. ha1 06:15 Radiology exam delayed due to lab results not completed at this time. (BUN/Creatinine) eh4 IV insertion attempt and/or patient not having appropriate IV at this time. 06:33 CMP Sent. ha1 06:33 Lipase Sent. ha1 07:04 Abdomen Limited US In Process Unspecified. EDMS 07:07 Primary Nurse role handed off by Reena Mejias RN bp 07:07 Ryne Anderson, JESSICA is Primary Nurse. bp 08:06 Attending Physician role handed off by Yg Wynn MD rn 08:06 Elias Marshall MD is Attending Physician. rn 08:13 CT Abd/Pelvis - IV Contrast Only In Process Unspecified. EDMS 08:45 Carlos Diaz MD is Hospitalizing Provider. rn 10:34 No provider procedures requiring assistance completed. Patient admitted, IV remains in bp place. Administered Medications: 06:12 Drug: Dicyclomine IM 20 mg Route: IM; Site: right ventrogluteal; ha1 06:45 Follow up: Response: No adverse reaction ha1 06:15 Drug: NS 0.9% IV 1000 ml Route: IV; Rate: 1 bolus; Site: left antecubital; ha1 10:35 Follow up: IV Status: Completed infusion; IV Intake: 1000ml bp 06:15 Drug: Famotidine IVP 20 mg Route: IVP; Site: left antecubital; ha1 06:45 Follow up: Response: No adverse reaction; Nausea is decreased ha1 06:17 Drug: Ondansetron IVP 4 mg Route: IVP; Site: left antecubital; ha1 06:45 Follow up: Response: No adverse reaction; Nausea is decreased ha1 06:20 Drug: TORadol - Ketorolac IVP 15 mg Route: IVP; Site: left antecubital; ha1 06:45 Follow up: Response: No adverse reaction; Pain is decreased; RASS: Alert and Calm (0) ha1 06:22 Drug: morphine IVP or IV 4 mg Route: IVP; Infused Over: 4 mins; Site: left antecubital; ha1 06:45 Follow up: Response: No adverse reaction; Pain is decreased; RASS: Alert and Calm (0) ha1 09:00 Drug: Piperacillin-Tazobactam IVPB 3.375 grams Route: IVPB; Infused Over: 60 mins; bp Site: left antecubital; 10:34 Follow up: IV Status: Completed infusion; IV Intake: 100ml bp Medication: 07:14 VIS not applicable for this client. ha1 Intake: 10:34 IV: 100ml; Total: 100ml. bp 10:35 IV: 1000ml; Total: 1100ml. bp Outcome: 08:45 Decision to Hospitalize by Provider. rn 10:34 Admitted to OR accompanied by nurse, via stretcher. bp 10:34 Condition: stable 10:34 Instructed on the need for admit. 10:37 Patient left the ED. bp Signatures: Dispatcher [employer] EDMS Elias Marshall MD MD rn Moreno, Amanda amRyne Antunez RN RN bp Reena Mejias RN RN ha1 Shon Huber 4 Ana Partida 1 Yg Wynn MD MD sp4
--- NOTE | 2023-03-03 08:47 | EDPHYS ---
Physician Documentation [facility] Name: Flakito Claudio Age: 42 yrs Sex: Male : 1980 Arrival Date: 03/03/2023 Time: 05:28 Bed 14 Private MD: ED Physician Elias Marshall HPI: 03/03 05:59 This 42 yrs old Male presents to ER via Unassigned with complaints of sp4 Abdominal Pain, Epigastric Pain. 07:11 42-year-old male with a history of gallstones diagnosed about a year ago at [facility] in sp4 [place], presents with acute onset of right upper quadrant and epigastric abdominal pain starting at 3 AM reminiscent of his prior biliary pains. . Historical: - Allergies: 06:08 No Known Allergies; ha1 - PMHx: 06:08 Bipolar disorder; Hypertension; intussusception; ha1 - Immunization history:: Adult Immunizations unknown. - Social history:: Smoking status: Patient reports the use of cigarette tobacco products, smokes one-half pack cigarettes per day. - Family history:: not pertinent. ROS: 07:11 Constitutional: Negative for fever, chills, and weight loss, Eyes: Negative for injury, sp4 pain, redness, and discharge, ENT: Negative for injury, pain, and discharge, Neck: Negative for injury, pain, and swelling, Cardiovascular: Negative for chest pain, palpitations, and edema, Abdomen/GI: Negative for vomiting, diarrhea, and constipation, for abdominal pain and nausea 07:11 All other systems are negative. Exam: 07:11 Constitutional: This is a well developed, well nourished patient who is awake, alert, sp4 and in no acute distress. Head/Face: Normocephalic, atraumatic. Eyes: Pupils equal round and reactive to light, extra-ocular motions intact. Lids and lashes normal. Conjunctiva and sclera are not injected. Cornea within normal limits. Periorbital areas with no swelling, redness, or edema. ENT: Nares patent. No nasal discharge, no septal abnormalities noted. Tympanic membranes are normal and external auditory canals are clear. Oropharynx with no redness, swelling, or masses, exudates, or evidence of obstruction, uvula midline. Mucous membranes moist. Neck: Trachea midline, no thyromegaly or masses palpated, and no cervical lymphadenopathy. Supple, full range of motion without nuchal rigidity, or vertebral point tenderness. Chest/axilla: Normal chest wall appearance and motion. Nontender with no deformity. No lesions are appreciated. Cardiovascular: Regular rate and rhythm with a normal S1 and S2. No gallops, murmurs, or rubs. Normal PMI, no JVD. No pulse deficits. Respiratory: Lungs have equal breath sounds bilaterally, clear to auscultation and percussion. No rales, rhonchi or wheezes noted. No increased work of breathing, no retractions or nasal flaring. Abdomen/GI: Soft, positive epigastric tenderness in the right upper quadrant tenderness without rigidity or distention. Normoactive bowel sounds Back: No spinal tenderness. No costovertebral tenderness. Skin: Warm, dry with normal turgor. Normal color with no rashes, no lesions, and no evidence of cellulitis. MS/ Extremity: Pulses equal, no cyanosis. Neurovascular intact. Full, normal range of motion. Neuro: Awake and alert, GCS 15, oriented to person, place, time, and situation. Cranial nerves II-XII grossly intact. Motor strength 5/5 in all extremities. Sensory grossly intact. Psych: Awake, alert, with orientation to person, place and time. Behavior, mood, and affect are within normal limits Vital Signs: 05:43 BP 168 / 105; Pulse 53; Resp 18; Temp 98.1; Pulse Ox 100% on R/A; Weight 83.91 kg; rv1 Height 5 ft. 2 in. ; Pain 7/10; 06:50 BP 144 / 91; Pulse 83; Resp 15; Pulse Ox 98% ; ha1 07:00 BP 137 / 89; Pulse 51; Resp 18 S; Pulse Ox 98% ; ha1 09:30 BP 128 / 97; Pulse 45; Resp 16; Pulse Ox 100% ; bp 05:43 Body Mass Index 33.84 (83.91 kg, 157.48 cm) rv1 05:43 Pain Scale: Adult rv1 MDM: 06:05 Patient medically screened. sp4 07:11 Differential Diagnosis sepsis, flu. Data reviewed: vital signs, nurses notes, old sp4 medical records, lab test result(s), radiologic studies, CT scan. Data reviewed: radiologic studies, ultrasound. Consideration of Admission/Observation Patient was admitted/placed on observation. Escalation of care including admission/observation considered. Transition of care: After a detail discussion of the patient's case, care is transferred to Elias Marshall MD. ED course: Patient is waiting on CT and ultrasound report. 08:43 Management of patient was discussed with the following: Space Engineer: Dr. Cote, rn requests hospitalist admission, NPO after midnight, abx. . Counseling: I had a detailed discussion with the patient and/or guardian regarding: the historical points, exam findings, and any diagnostic results supporting the discharge/admit diagnosis, lab results, radiology results, the need for further work-up and treatment in the hospital. 03/03 06:04 Order name: CBC with Diff; Complete Time: 07:03 sp4 03/03 06:04 Order name: CMP; Complete Time: 08:06 sp4 03/03 06:04 Order name: Lipase; Complete Time: 08:06 sp4 03/03 06:04 Order name: Urinalysis w/ reflexes; Complete Time: 08:06 sp4 03/03 06:04 Order name: Abdomen Limited US; Complete Time: 08:06 sp4 03/03 06:04 Order name: CT Abd/Pelvis - IV Contrast Only; Complete Time: 08:25 sp4 03/03 06:04 Order name: IV Saline Lock; Complete Time: 06:33 sp4 03/03 06:04 Order name: Labs collected and sent; Complete Time: 06:33 sp4 03/03 06:22 Order name: Misc. Order: RECOLLECT GREEN TOP; Complete Time: 06:56 pf1 Administered Medications: 06:12 Drug: Dicyclomine IM 20 mg Route: IM; Site: right ventrogluteal; ha1 06:45 Follow up: Response: No adverse reaction ha1 06:15 Drug: NS 0.9% IV 1000 ml Route: IV; Rate: 1 bolus; Site: left antecubital; ha1 10:35 Follow up: IV Status: Completed infusion; IV Intake: 1000ml bp 06:15 Drug: Famotidine IVP 20 mg Route: IVP; Site: left antecubital; ha1 06:45 Follow up: Response: No adverse reaction; Nausea is decreased ha1 06:17 Drug: Ondansetron IVP 4 mg Route: IVP; Site: left antecubital; ha1 06:45 Follow up: Response: No adverse reaction; Nausea is decreased 1 06:20 Drug: TORadol - Ketorolac IVP 15 mg Route: IVP; Site: left antecubital; 1 06:45 Follow up: Response: No adverse reaction; Pain is decreased; RASS: Alert and Calm (0) 1 06:22 Drug: morphine IVP or IV 4 mg Route: IVP; Infused Over: 4 mins; Site: left antecubital; 1 06:45 Follow up: Response: No adverse reaction; Pain is decreased; RASS: Alert and Calm (0) 1 09:00 Drug: Piperacillin-Tazobactam IVPB 3.375 grams Route: IVPB; Infused Over: 60 mins; bp Site: left antecubital; 10:34 Follow up: IV Status: Completed infusion; IV Intake: 100ml bp Disposition Summary: 03/03/23 08:45 Hospitalization Ordered Hospitalization Status: Observation rn Provider: Carlos Diaz rn Location: Telemetry/MedSurg (observation) rn Condition: Stable rn Problem: new rn Symptoms: have improved rn Bed/Room Type: Standard rn Room Assignment: rn Diagnosis - Acute cholecystitis rn Forms: - Medication Reconciliation Form rn - SBAR form rn Signatures: Dispatcher [employer] Elias Pablo MD MD rn Peltier, Brian RN Ellen Dimas RN Josseline Gomez RN JESSICA pf1 Yg Wynn MD MD sp4
[2023-03-03] MEDS ORDERED: NA CHLORIDE 0.9% 100 ML ONE (08:57)
[2023-03-03] MEDS ORDERED: PIPERACIL/TAZO 3.375 GM VIAL IV ONE (08:57)
[2023-03-03] MEDS ORDERED: MORPHINE 4 MG/ML SYR IV PRN (10:50)
[2023-03-03] MEDS ORDERED: ACETAMINOPHEN 325 MG TABLET PO PRN (10:50)
[2023-03-03] MEDS ORDERED: ONDANSETRON 4 MG/2 ML VIAL IV PRN (10:52)
--- NOTE | 2023-03-03 10:54 | P.HP ---
Certification for Inpatient Patient admitted to: Observation With expected LOS: <2 Midnights Patient will require the following post-hospital care: None Practitioner: I am a practitioner with admitting privileges, knowledge of patient current condition, hospital course, and medical plan of care. Services: Services provided to patient in accordance with Admission requirements found in Title 42 Section 412.3 of the Code of Federal Regulations Patient History Date of Service: 03/03/23 Reason for admission: Abdominal pain History of Present Illness: Patient is a 42-year-old male with a past medical history significant for bipolar disorder, hypertension, intussusception, nicotine dependence who presents with complaint of epigastric pain onset this morning. Patient indicated that epigastric pain radiates to his right upper quadrant. Patient rated pain as 10/10 in severity and described pain as aching in quality. Patient reported associated signs and symptoms of nausea, vomiting and abdominal distention. Patient denies any other signs and symptoms. Symptoms are aggravated or relieved by nothing. Patient decided to present to the hospital due to worsening symptoms. Of note, patient reported that he was diagnosed with gallstones at [facility] 1 year ago. Allergies No Known Allergies Allergy (Unverified 01/30/18 10:34) - Past Medical/Surgical History -: Bipolar disorder -: Intussusception -: Nicotine dependence -: Obesity -: Hypertension -: Tonsillectomy -: Appendectomy -: Intussusception surgery - Family History Family History: Reviewed- Non-Contributory - Social History Smoking Status: Heavy Tobacco smoker (>10 cigarettes/day) Counseled patient to stop smoking for: less than 10 minutes Smoking therapy provided: Yes Patient receptive to therapy: No Alcohol use: No CD- Drugs: No Caffeine use: Yes Place of Residence: Home Review of Systems General: Unremarkable Eyes: Unremarkable ENT: Unremarkable Respiratory: Unremarkable Cardiovascular: Unremarkable Gastrointestinal: Nausea, Vomiting, Abdominal Pain, Distention Genitourinary: Unremarkable Musculoskeletal: Unremarkable Integumentary: Unremarkable Neurological: Unremarkable Lymphatics: Unremarkable Physical Examination - Physical Exam General: Alert, In no apparent distress, Oriented x3, Cooperative HEENT: Atraumatic, PERRLA, Mucous membr. moist/pink, EOMI, Sclerae nonicteric Neck: Supple, 2+ carotid pulse no bruit, No LAD, Without JVD or thyroid abnormality Respiratory: Clear to auscultation bilaterally, Normal air movement Cardiovascular: No edema, Regular rate/rhythm, Normal S1 S2 Capillary refill: <2 Seconds Gastrointestinal: Normal bowel sounds, Tenderness Musculoskeletal: No clubbing, No swelling, No tenderness Integumentary: No rashes, No significant lesion Neurological: Normal speech, Normal strength at 5/5 x4 extr, Normal tone, Normal affect Lymphatics: No axilla or inguinal lymphadenopathy - Studies Laboratory Data (last 24 hrs) 03/03/23 03/03/23 07:00 06:05 WBC 7.80 Hgb 12.9 L Hct 38.5 L Plt Count 208 Sodium 138 Potassium 3.6 BUN 17 Creatinine 0.81 Glucose 96 Total Bilirubin 0.3 AST 31 ALT 47 Alkaline Phosphatase 56 Lipase 87 H Assessment and Plan - Plan --Symptomatic cholelithiasis. Abdominal ultrasound indicates Cholelithiasis and small volume of gallbladder sludge. Continue antibiotics. Surgeon consulted--plan for cholecystectomy. Will keep patient NPO. Continue IV antibiotics and IV hydration. --Acute pain. We will manage pain with current pain medication regimen. --Nicotine dependence. Patient counseled on tobacco cessation. Refuses nicotine patch. --Hypertension. Poorly controlled. Continue home medication when available. Will manage BP with hydralazine as needed. --Bipolar disorder. Continue home medication. --Class I obesity. Likely secondary to excess calories intake. Patient counseled on weight reduction, diet and exercise therapy. --Nausea and vomiting. Antiemetics on board. Continue IV hydration. --DVT prophylaxis with SCDs. Discharge Plan: Home Plan to discharge in: 48 Hours - Advance Directives Does patient have a Living Will: No Does patient have a Durable POA for Healthcare: No - Code Status/Comfort Care Code Status Assessed: Yes Physician Review: Patient Assessed, Agree with Above Assessment and Plan Critical Care: No
[2023-03-03 11:29] LABS: Magnesium 1.9 mg/dL (1.6-2.4); Phosphorus 2.7 mg/dL (2.5-4.9)
[2023-03-03] MEDS ORDERED: propofoL 200 MG/20 ML VIAL IV ONE (12:18)
[2023-03-03] MEDS ORDERED: MIDAZOLAM HCL 2 MG/2 ML INJ ONE (12:18)
[2023-03-03] MEDS ORDERED: ROCURONIUM 50 MG/5 ML VIAL IV ONE (12:18)
[2023-03-03] MEDS ORDERED: dexAMETHasone 10 MG/ML VIAL ONE (12:18)
[2023-03-03] MEDS ORDERED: FENTANYL CITR 100 MCG/2 ML ONE (12:18)
[2023-03-03] MEDS ORDERED: LIDOCAINE 2% MPF 5 ML VIAL ONE (12:19)
[2023-03-03] MEDS ORDERED: EPHEDRINE SULF 50 MG/ML VIAL ONE (13:34)
[2023-03-03] MEDS: Ringers Lactate 1,000 ML IV ONE ×2 (13:44→13:50)
[2023-03-03] MEDS ORDERED: NEOSTIGMINE 1 MG/ML -10 ML VIAL ONE (13:53)
[2023-03-03] MEDS ORDERED: GLYCOPYRROLATE 0.2 MG/ML SYR ONE (13:53)
--- NOTE | 2023-03-03 14:23 | P.BOP ---
Preoperative diagnosis: Acute cholecystitis, symptomatic cholelithiasis, intractable abd pain Postoperative diagnosis: same Primary procedure: Laparoscopic cholecystectomy Estimated blood loss: <10cc Specimen: gb Findings: edematous gallbladder wall Anesthesia: General Complications: None Drain(s): RM drain Transferred to: Recovery Room Condition: Good
[2023-03-03] MEDS ORDERED: HYDROCODONE/APAP 5/325 MG TAB PO PRN (14:25)
[2023-03-03] MEDS: HYDROMORPHONE HCL 1 MG/ML INJ ONE ×2 (14:40→14:45)
[2023-03-03] MEDS: ONDANSETRON 4 MG/2 ML VIAL ONE ×2 (15:05→15:07)
[2023-03-03] MEDS ORDERED: HYDRALAZINE HCL 20 MG/ML VIAL IV PRN (15:24)
[2023-03-03] MEDS: PIPER TAZO 3.375 GM in NA CHLORIDE 0.9% 100 ML IV SCH (16:18)
[2023-03-03] MEDS: NA CHLORIDE 0.9% 1,000 ML IV SCH (16:18)
[2023-03-03 16:23] VITALS: BMI 33.8
--- NOTE | 2023-03-03 17:35 | CON ---
Date of Consultation: 03/03/2023 Reason For Service: Acute cholecystitis, symptomatic cholelithiasis. History Of Present Illness: This is the case of a 42-year-old patient, who complained of epigastric right upper quadrant pain radiating to the back associated with nausea. He has several attacks the l ast few months. He wanted to take care of this, but he has not been able to have a chance and this m orning at 3 o'clock in the morning, the pain came again, it was intractable, came to the ER, still in tractable, so surgical consult was obtained for the possibility of cholecystectomy. He denies any dy suria, hematuria, hematochezia, melena. He denies any recent traveling out of the country. Denies a [place] family member sick at home. Denies any jaundice. Review of Systems: Ten points otherwise unremarkable. Allergies: NONE. Past Medical History: Bipolar, hypertension, history of intussusception. Past Surgical History: He says when he was [id number]ys, he has a transverse midline incision for in testinal issues. He thought it was intussusception. No more surgeries after that other than the ton sils. Physical Examination: General: The patient is awake, alert. HEENT: Pupils are equal and reactive. Anicteric. Neck: Supple. Chest: Clear. Heart: S1, S2. Abdomen: Epigastric right upper quadrant tenderness with Contreras sign positive. There is a transvers e incision in mid abdomen. Extremities: Good capillary refill. Neuro: Cranial nerves 2 through 12 grossly normal limits. Laboratory Data: WBC count of 7.8, hemoglobin of 12.9, platelets of 208. Sodium is 138, bicarb 27, lipase 87. CAT scan of the abdomen and pelvis shows cholelithiasis and pericholecystic fluid. Ultra sound of the abdomen shows cholelithiasis. Assessment: This is a 42-year-old patient with acute cholecystitis, symptomatic cholelithiasis, came to the ER at 3 o'clock in the morning. The patient preferred the surgery during this admission sinc e the pain is not improving. The benefits, alternatives, and risks of laparoscopic possible open cho lecystectomy fully explained, which include, but not limited to infection, bleeding, damage to adjace nt structures, anesthesia complication, choledocholithiasis, bile leak, pancreatitis, [place], and even de ath. He also understands this may not relieve any symptoms. He might need more than one surgical in tervention. He understood, signed a consent. OR was immediately notified. RANDOLPH/GINNY Voice ID: [id number] Report ID: [id number]
--- NOTE | 2023-03-03 21:48 | P.PN ---
Date of Service: 03/04/23 Subjective: 03/04 note ROS: 10 point ROS as noted above, otherwise negative Physical Exam: GEN: Alert, oriented, NAD HEENT: Normal conjunctiva, sclera anicteric CV: Regular rate & rhythm, no edema Pulm: Nonlabored respiraitons on room air ABD: Soft, RUQ tenderness, dressing in place MSK: No joint tenderness Integumentary: No rashes Neuro: Normal speech, normal affect Problem List: 1. Acute cholecystitis, symptomatic cholelithiasis, now s/p lap debbi (03/03) 2. Nicotine dependence 3. Hypertension 4. Bipolar disorder 5. Class I obesity PLAN abdominal u/s: Cholelithiasis and small volume of gallbladder sludge. General surgery consulted s/p lap debbi (03/03) Continue IV Zosyn Continue IVF PRN pain medication Patient counseled on tobacco cessation. Refuses nicotine patch. confirm home medications, restart as appropriate hydralazine PRN PRN Antiemetics VTE: SCD Code: Full Dispo: Home
[2023-03-04 06:23] LABS: Absolute Lymphocytes (CBC) 1.5 K/uL (0.7-4.9); Hematocrit 39.2 % (39.6-49.0); Lymphocytes % 10.4 % (15.3-44.8); MCV 92.1 fL (80-100); MPV 8.7 fL (7.6-11.3); Platelets 224 thou/uL (152-406); RBC Red Blood Cell Count 4.25 M/uL (4.33-5.43)
[2023-03-04 06:35] LABS: Potassium 4.1 mEq/L (3.5-5.1)
[2023-03-04] MEDS: PIPER TAZO 3.375 GM in NA CHLORIDE 0.9% 100 ML IV SCH ×2 (06:42→09:00)
[2023-03-04] MEDS: NA CHLORIDE 0.9% 1,000 ML IV SCH (06:42)
[2023-03-04] MEDS ORDERED: PIPERACIL/TAZO 3.375 GM VIAL IV ONE (06:53)
[2023-03-04 08:46] VITALS: BP 131/81; TEMP 97.5
[2023-03-04 10:56] VITALS: O2SAT 96
--- NOTE | 2023-03-04 11:57 | OP ---
Date of Procedure: 03/04/2023 Surgeon: Rony Cote MD Preoperative Diagnoses: Acute cholecystitis, symptomatic cholelithiasis, intractable abdominal pain. Postoperative Diagnoses: Acute cholecystitis, symptomatic cholelithiasis, intractable abdominal pain . Procedure: Laparoscopic cholecystectomy. Estimated Blood Loss: Less than 10 cc. Specimen: Gallbladder. Finding: Edematous gallbladder wall. Anesthesia: General plus local. Complications: None. Drains: RM #10. Indication For Procedure: This is the case of a 42-year-old patient, who comes to us with above diag noses. Fully explained the benefits, alternatives, and risks of laparoscopic possible open cholecyst ectomy, which include, but not limited to infection, bleeding, damage to adjacent structures, anesthe jordi complication, choledocholithiasis, bile leak, pancreatitis, CO, and even . He also understa nds this may not relieve any symptoms. He might need more than one surgical intervention. He unders tood, signed a consent. Description Of Procedure: Patient was brought to the operating room, placed in supine position. Ane sthesia was done without complication. Abdominal area was prepped and draped in sterile fashion. Ma rcaine 0.5% was injected for local anesthetic followed by sharp incision of the skin in the infraumbi lical region. Incision was carried down to fascia, which was opened under direct vision. Peritoneum was encountered, opened under direct vision. Vicryl #1 placed inside the fascia. Pippa trocar was carefully introduced. Pneumoperitoneum was obtained. We have to remember this patient has a transv erse incision in the abdomen from laparotomy many years ago, so we are trying to avoid any scar tissu e in that region. To our surprise, once we put the cameras in, the scar tissues were minimal if any. Much of the disease is just in the gallbladder area. At that moment, I proceeded with 3 more troca rs, 5 mm each one of them, 1 in the epigastric area, 2 in the right upper quadrant. Using the same t echnique, which consisted of local anesthetic, sharp incision of the skin and introduction of the tro cars under direct vision. This allowed me to put a grasper in the fundus of the gallbladder. We hav e to drain this gallbladder. It is too distended. So with an Endoneedle, we were able to do that. Under direct visualization, then the grasper was placed in the fundus of the gallbladder, another gra sper in the infundibulum, retracted the gallbladder in the inferolateral fashion exposing the triangl e of Calot, obtaining critical view. Cystic duct and cystic artery were clearly isolated, freed circ umferentially and a connection between those and the gallbladder was clearly identified. I proceeded to ligate those by using at least 3 clips proximal, 1 clip distal, ligation in middle. Same was don e with the cystic artery. No bile leak, no bleeding. The gallbladder was removed from liver using B ovie cauterizer and removed from abdominal cavity using EndoCatch through the umbilical incision. Th e gallbladder looks edematous. There were some adhesions to the gallbladder, suspected during this k ind of inflammatory disease. I prefer to leave a RM drain in that area exiting through one of the tr ocar sites securing that in place with 3-0 nylon. Area was inspected once again. No bile leak. No bleeding. At that moment, I proceeded to remove the trocars under direct vision. Deflated pneumoper itoneum. We closed the fascia with #1 Vicryl. Irrigated subcutaneous tissue and then closed the ski n with mayito. Sponge count and instrument counts were correct. Patient tolerated the procedure we ll. Patient was sent to recovery in stable condition. RANDOLPH/GINNY Voice ID: [id number] Report ID: [id number]
== END 2023-03-04 14:04 | disposition home or self-care (01) ==
LOC: ER 05:28 → ERHOLD 10:43 → 4TH 15:14
PROVIDERS: ADMIT Internal Medicine; ATTEND Hospitalist
PROC: 0FT44ZZ Resection of Gallbladder, Percutaneous Endoscopic Approach (ICD-10-PCS; principal; 2023-03-03 12:30)
DX: K80.10 Calculus of gallbladder with chronic cholecystitis without obstruction (principal); I10 Essential (primary) hypertension; F31.9 Bipolar disorder, unspecified; E66.9 Obesity, unspecified; R11.2 Nausea with vomiting, unspecified; R10.9 Unspecified abdominal pain; Z68.33 Body mass index [BMI] 33.0-33.9, adult; Z71.3 Dietary counseling and surveillance
CPT/HCPCS: 36415; 74177; 76705; 80048; 80053; 80061; 81003; 83036; 83690; 83735; 84100; 85025; 88304; 96361; 96365; 96366; 96372; 96375; 99285; J0500; J1100; J1170; J2001; J2250; J2405; J2543; J2704; J2710; J3010; J7030; J7120; Q9967

== ENCOUNTER 2023-07-10 11:33 | Emergency (ER) | payer SELFPAY ==
--- OUTSIDE RECORDS SUMMARY | 2023-07-10 11:37 | XMS REPORT | Continuity of Care Document ---
Author Name Unknown Address [address] [facility] [address] [facility] [address] [place] [address] [facility] Address [address] [facility] [address] [place] [address] Care Team Providers Care Senior Engineering Tech Name Role Phone Zulma Rausch Primary Care Physician [phone] LENA KLINE Attending Clinician Unavailable Lena Kline MD Attending Clinician [phone] River Pabon MD Attending Clinician [phone] Doctor Unassigned, [place] Attending Clinician U Zana Pedro DO Attending Clinician [phone] ZANA STEVENS Attending Clinician Unavailable Mayte Roberson Attending Clinician [phone] LENA KLINE Admitting Clinician Unavailable Problems Condition Name Condition Details Condition Category Status Onset Date Resolution Date Last Treatment Date Treating Clinician Comments Source No known active problems No known active problems Disease [facility] Allergies, Adverse Reactions, Alerts Allergy Name Allergy Type Status Severity Reaction(s) Onset Date Inactive Date Treating Clinician Comments Source NO KNOWN ALLERGIE S Drug Class Active [facility] Social History Social Habit Start Date Stop Date Quantity Comments Source Exposure to SARS-CoV-2 (event) 2022-05-16 00:00:00 2022-05-26 03:34:00 Not sure [facility] Sex Assigned At 1980 00:00:00 1980 00:00:00 [facility] Smoking Status Start Date Stop Date Source Tobacco smoking consumption unknown [facility] Medications Ordered Medication Name Filled Medication Name Start Date Stop Date Current Medication? Ordering Clinician Indication Dosage Frequency Signature (SIG) Comments Components Source iopamidol (ISOVUE 370-500 mL) injection 100 mL 2021-07 11:30: 00 05-26 10:33 :00 No [id number] 100mL 100 mL, Intravenou s, ONCE, 1 dose, On 05/26/22 at 0630, Routine [facility] traMADoL (ULTRAM) 50 mg tablet 2021-07 00:00: 00 Yes [id number] 50mg Take 1 tablet by mouth every 6 (six) hours as needed for Pain (scale 7-10). Indication s: acute pain [facility] ondansetron (ZOFRAN) 4 mg tablet 2021-07 00:00: 00 Yes [id number] 4mg Take 1 tablet by mouth every 8 (eight) hours as needed for Nausea and Vomiting (N/V). [facility] TAKE ONE (1) CAPSULE(S) BY MOUTH THREE TIMES A DAY FOR 7 DAYS. 2021-07 00:00: 00 No 1 po q hs 03-27 00:00: 00 No TAKE ONE (1) CAPSULE(S) BY MOUTH THREE TIMES A DAY FOR 7 DAYS. 03-19 00:00: 00 No 500 TAKE ONE (1) CAPSULE(S) BY MOUTH THREE TIMES A DAY FOR 7 DAYS. 03-19 00:00: 00 No 500 cephALEXin (KEFLEX) 500 mg capsule 2020-07 0 00:00: 00 05-09 04:59 :00 No [id number] 500mg Take 1 capsule by mouth 3 (three) times daily for 7 days. [facility] dexamethaso ne (DECADRON PHOSPHATE) injection 10 mg 03-11 16:30: 00 03-11 15:26 :00 No 10mg 10 mg, Intramuscu lar, ONCE, 1 dose, 03/11/21 at 1130, STAT [facility] predniSONE 20 mg tablet 03-11 00:00: 00 Yes [id number] Take 3 pills daily for the first 7 days, 2 pills daily for the next 7 days, then 1 pill daily for the next 7 days [facility] predniSONE 20 mg tablet 1-0 815 00:00: 00 Yes Take 3 pills daily for the first 7 days, 2 pills daily for the next 7 days, then 1 pill daily for the next 7 days [facility] predniSONE 20 mg tablet 2020-0 8-15 00:00: 00 Yes Take 3 pills daily for the first 7 days, 2 pills daily for the next 7 days, then 1 pill daily for the next 7 days [facility] predniSONE 20 mg tablet 1-0 8-15 00:00: 00 Yes Take 3 pills daily for the first 7 days, 2 pills daily for the next 7 days, then 1 pill daily for the next 7 days [facility] predniSONE 20 mg tablet 1-0 8-15 00:00: 00 Yes Take 3 pills daily for the first 7 days, 2 pills daily for the next 7 days, then 1 pill daily for the next 7 days [facility] predniSONE 20 mg tablet 1-0 8-15 00:00: 00 Yes Take 3 pills daily for the first 7 days, 2 pills daily for the next 7 days, then 1 pill daily for the next 7 days [facility] predniSONE 20 mg tablet 2020-0 8-15 00:00: 00 Yes Take 3 pills daily for the first 7 days, 2 pills daily for the next 7 days, then 1 pill daily for the next 7 days [facility] Vital Signs Vital Name Observation Time Observation Value Comments S ource Systolic blood pressure 2022-05-26 11:00:00 122 mm[Hg] [facility] Diastolic blood pressure 2022-05-26 11:00:00 89 mm[Hg] [facility] Heart rate 2022-05-26 11:00:00 66 [facility] 2022-05-26 11:00:00 19 /min [facility] Oxygen saturation in Arterial blood by Pulse oximetry 2022-05-26 11:00:00 98 /min [facility] Body temperature 2022-05-26 08:36:00 36.89 Archana [facility] Body height 2022-05-26 08:36:00 160 cm [facility] Body weight 2022-05-26 08:36:00 86.183 kg [facility] BMI 2022-05-26 08:36:00 33.66 kg/m2 [facility] Systolic blood pressure 2021-05-01 14:38:00 150 mm[Hg] [facility] Diastolic blood pressure 2021-05-01 14:38:00 93 mm[Hg] [facility] Heart rate 2021-05-01 14:38:00 78 /min [facility] Body temperature 2021-05-01 14:38:00 37 Archana [facility] Respiratory rate 2021-05-01 14:38:00 20 /min [facility] Body weight 2021-05-01 14:38:00 84.823 kg [facility] Oxygen saturation in Arterial blood by Pulse oximetry 2021-05-01 14:38:00 99 /min [facility] Systolic blood pressure 2021-03-11 15:12:00 137 mm[Hg] [facility] Diastolic blood pressure 2021-03-11 15:12:00 80 mm[Hg] [facility] Heart rate 2021-03-11 15:12:00 69 /min [facility] Body temperature 2021-03-11 15:12:00 36.72 Archana [facility] Respiratory rate 2021-03-11 15:12:00 20 /min [facility] Body weight 2021-03-11 15:12:00 87.544 kg [facility] Oxygen saturation in Arterial blood by Pulse oximetry 2021-03-11 15:12:00 99 /min [facility] BP Systolic 2022-05-07 13:43:00 128 mm[Hg] BP [...] 2019-01-26 12:07:00 Procedures Procedure Date / Time Performed Performing Clinician Source CT ABDOMEN PELVIS W CONTRAST 2022-05-26 10:36:00 Lena Kline [facility] URINALYSIS 2022-05-26 10:17:00 Lena Kline [facility] URINE DRUG (IMMUNOASSAY) - COMPREHENSIVE DRUG SCREEN 2022-05-26 10:17:00 Lena Kline [facility] CBC WITH DIFF 2022-05-26 08:38:00 Lena Kline [facility] LIPASE 2022-05-26 08:38:00 Lena Kline [facility] COMP. METABOLIC PANEL (51871) 2022-05-26 08:38:00 Lena Kline [facility] NON [facility] FACILITY DOCUMENTATION 2021-07-09 06:01:00 Doctor Unassigned, [place] [facility] NOTICE OF PRIVACY PRACTICES 2021-05-01 14:32:24 Doctor Unassigned, [place] [facility] CONSENT/REFUSAL FOR DIAGNOSIS AND TREATMENT 2021-05-01 14:32:06 Doctor Unassigned, [place] [facility] Plan of Care Planned Activity Planned Date Details Comments Source Goal Plan of Care Note [code = 11031-8] Goal Plan of Care Note [code = 55936-1] Goal Plan of Care Note [code = 55567-1] Goal Plan of Care Note [code = 41830-9] Goal Plan of Care Note [code = 72425-3] Goal Plan of Care Note [code = 21132-7] Goal Plan of Care Note [code = 47664-2] Goal Plan of Care Note [code = 11095-4] Goal Plan of Care Note [code = 23750-0] Goal Plan of Care Note [code = 26509-4] Goal Plan of Care Note [code = 65280-4] Goal Plan of Care Note [code = 23688-4] Goal Plan of Care Note [code = 50636-0] Goal Plan of Care Note [code = 51997-8] Encounters Start Date/Time End Date/Time Encounter Type Admission Type Attending Clinicians Care Facility Care Department Encounter ID Source 2022-05-26 03:32:00 2022-05-26 06:21:00 Emergency X LENA KLINE [facility] ERT [id number] [facility] 2022-05-26 03:32:00 2022-05-26 06:21:00 Emergency Lena Kline [facility] [id number] [id number] [id number] [id number] [facility] 2022-05-07 13:42:49 2022-05-07 13:42:[address] [facility] [id number] Nam Fine 2022-05-07 00:00:00 2022-05-07 00:00:00 Outpatient Visit [id number] 2022-03-20 00:00:00 2022-03-20 00:00:00 Outpatient Visit [id number] 2021-07-09 14:01:00 2021-07-09 23:59:00 Hospital Encounter River Pabon [facility] 1.0.114 350.1.13.10 4.2.7.2.686 [id number] [facility] 2021-07-09 00:00:00 2021-07-09 00:00:00 Orders Only Doctor Unassigned, [place] [facility] 1.840.114 350.1.13.10 4.2.7.2.686 [id number] [facility] 2021-05-01 09:41:00 2021-05-01 10:48:00 Emergency StevensZana clancy [facility] 1.0.114 350.1.13.10 4.2.7.2.686 [id number] [facility] 2021-05-01 09:32:00 2021-05-01 09:32:00 Emergency X STEVENS [facility] [id number] [facility] 2021-03-28 00:00:00 2021-03-28 00:00:00 Refill Robert [facility] [address] 1..114 350.1.13.10 4.2.7.2.686 [id number] [facility] 2021-03-11 10:13:00 2021-03-11 10:42:00 Emergency Robert [facility] 1.840.114 350.1.13.10 4.2.7.2.686 [id number] [facility] 2021-03-11 10:07:00 2021-03-11 10:07:00 Emergency X [facility] ERT [id number] [facility] Results Test Description Test Time Test Comments Results Result Co mments Source [facility] [id number] 10:05:07* Test Item Value Reference Range Interpretation Comme nts LIPASE (test code = 2227059999) 233 U/L 0-220 H Lab Interpretation (test cod e = 82785-3) [facility] [id number] 09:26:05* Test Item Value Reference Range Interpretation Comme nts WBC (test code = 6690-2) See_Comment [Automated messa ge] The system which generated this result transmitted reference range: 4.20 - 10.70 10*3/?L. The reference range was not used to interpret this result as normal/abnormal. RBC (test code = 789-8) See_Comment [Automated messa ge] The system which generated this result transmitted reference range: 4.26 - 5.52 10*6/?L. The reference range was not used to interpret this result as normal/abnormal. HGB (test code = 718-7) 14.4 g/dL 12.2-16.4 HCT (test code = 4544-3) 40.7 % 38.4-49.3 MCV (test code = 787-2) 89.3 fL 81.7-95.6 MCH (test code = 785-6) 31.6 pg 26.1-32.7 MCHC (test code = 786-4) 35.4 g/dL 31.2-35.0 H RDW-SD (test code = 42438-7) 40.9 fL 38.5-51.6 RDW-CV (test code = 788-0) 12.4 % 12.1-15.4 PLT (test code = 777-3) See_Comment [Automated messa ge] The system which generated this result transmitted reference range: 150 - 328 10*3/?L. The reference range was not used to interpret this result as normal/abnormal. MPV (test code = 04588-2) 10.2 fL 9.8-13.0 NRBC/100 WBC (test code = 4731937511) See_Comment [Automated me ssage] The system which generated this result transmitted reference range: 0.0 - 10.0 /100 WBCs. The reference range was not used to interpret this result as normal/abnormal. NRBC x10^3 (test code = 5226005779) See_Comment [Automated messa ge] The system which generated this result transmitted reference range: 10*3/?L. The reference range was not used to interpret this result as normal/abnormal. GRAN MAT (NEUT) % (test code = 770-8) 38.4 % IMM GRAN % (test code = 3003083344) 0.30 % LYMPH % (test code = 736-9) 50.3 % MONO % (test code = 5905-5) 9.2 % EOS % (test code = 713-8) 1.5 % BASO % (test code = 706-2) 0.3 % GRAN MAT x10^3(ANC) (test code = 9133774895) 3.00 10*3/uL 1.99-6.95 IMM GRAN x10^3 (test code = 8428240873) 0.00-0.06 LYMPH x10^3 (test code = 731-0) 3.92 10*3/uL 1.09-3.23 H MONO x10^3 (test code = 742-7) 0.72 10*3/uL 0.36-1.02 EOS x10^3 (test code = 711-2) 0.12 10*3/uL 0.06-0.53 BASO x10^3 (test code = 704-7) 0.01-0.09 Lab Interpretation (test code = 49162-9) [facility]normal [facility] [id number] 03:35:41* Test Item Value Reference Range Interpretation Comme nts CHOLESTEROL (test code = 2210) 205 MG/DL <200 H TRIGLYCERIDES (test code = 2232) 187 MG/DL <150 H HDL CHOLESTEROL (test code = 2220) 45 MG/DL >39 CALC LDL CHOL (test code = 2237) 128 MG/DL <100 H NOTE: CALCULATED LDL IS BASED ON ALECIA-NEGRON METHOD WHICHINCLUDES ADJUSTABLE TRIGLYCERIDE:VLDL CHOLESTEROL RATIO.THIS FACTOR VARIES BY MEASURED TRIGLYCERIDE AND NON-HDLCHOLESTEROL CONCENTRATIONS WITH INCREASED CALCULATED LDL SEENIN HIGHER TRIGLYCERIDE OR LOWER NON-HDL SPECIMENS. FOR MOREINFORMATION, SEE CLIENT ANNOUNCEMENT AT [email or web address] RATIO LDL/HDL (test code = 2237) 2.84 RATIO <3.55 COMPREHENSIVE METABOLIC [id number] 03:35:41* Test Item Value Reference Range Interpretation Comme nts GLUCOSE (test code = 2216) 92 MG/DL 70-99 BUN (test code = 2207) 13 MG/DL 6-20 CREATININE (test code = 2213) 1.05 MG/DL 0.80-1.40 eGFR (2020 CKD-EPI) (test code = 89707) 93 ML/MIN/1.73 >60 CALC BUN/CREAT (test code = 5) 12 RATIO 6-28 SODIUM (test code = 2230) 143 MEQ/L 133-146 POTASSIUM (test code = 2227) 4.2 MEQ/L 3.5-5.4 CHLORIDE (test code = 5) 103 MEQ/L 95-107 CARBON DIOXIDE (test code = 2205) 29 MEQ/L 19-31 CALCIUM (test code = 2208) 9.7 MG/DL 8.5-10.5 PROTEIN, TOTAL (test code = 2228) 7.1 G/DL 6.1-8.3 ALBUMIN (test code = 2200) 4.8 G/DL 3.5-5.2 CALC GLOBULIN (test code = 2240) 2.3 G/DL 1.9-3.7 CALC A/G RATIO (test code = 223) 2.1 RATIO 1.0-2.6 BILIRUBIN, TOTAL (test code = 2206) 0.6 MG/DL See_Comment [Automated me ssage] The system which generated this result transmitted reference range: <=1.2. The reference range was not used to interpret this result as normal/abnormal. ALKALINE PHOSPHATASE (test code = 2203) 66 U/L 40-117 AST (test code = 8) 19 U/L 9-50 ALT (test code = 2219) 20 U/L 5-50 UNLESS OTHERWISE INDICATED, ALL TESTING PERFORMED ATCLINICAL PATHOLOGY ([employer] [address] [place] [address] POST ANESTHESIA NURSE: MELVI PORTER M.D. CLIA NUMBER [id number] [facility] [place]. [id number] LIPID [id number] 00:00:00* Test Item Value Reference Range Interpretation Comme nts CHOLESTEROL (test code = 2210) 205 MG/DL TRIGLYCERIDES (test code = 2232) 187 MG/DL HDL CHOLESTEROL (test code = 2220) 45 MG/DL CALC LDL CHOL (test code = 2237) 128 MG/DL RISK RATIO LDL/HDL (test cod e = 2238) 2.84 RATIO LIPID [id number] 00:00:00* Test Item Value Reference Range Interpretation Comme nts CHOLESTEROL (test code = 2210) 205 MG/DL TRIGLYCERIDES (test code = 2232) 187 MG/DL HDL CHOLESTEROL (test code = 2220) 45 MG/DL CALC LDL CHOL (test code = 2237) 128 MG/DL RISK RATIO LDL/HDL (test cod e = 2238) 2.84 RATIO COMPREHENSIVE METABOLIC [id number] 00:00:00* Test Item Value Reference Range Interpretation Comme nts GLUCOSE (test code = 2217) 92 MG/DL BUN (test code = 2208) 13 MG/DL CREATININE (test code = 2214) 1.05 MG/DL eGFR (2020 CKD-EPI) (test co de = 53500) 93 ML/MIN/1.73 CALC BUN/CREAT (test code = 2235) 12 RATIO SODIUM (test code = 2231) 143 MEQ/L POTASSIUM (test code = 2228) 4.2 MEQ/L CHLORIDE (test code = 2215) 103 MEQ/L CARBON DIOXIDE (test code = 2206) 29 MEQ/L CALCIUM (test code = 2209) 9.7 MG/DL PROTEIN, TOTAL (test code = 2229) 7.1 G/DL ALBUMIN (test code = 2201) 4.8 G/DL CALC GLOBULIN (test code = 2240) 2.3 G/DL CALC A/G RATIO (test code = 2234) 2.1 RATIO BILIRUBIN, TOTAL (test code = 2207) 0.6 MG/DL ALKALINE PHOSPHATASE (test code = 2204) 66 U/L AST (test code = 2218) 19 U/L ALT (test code = 2219) 20 U/L COMPREHENSIVE METABOLIC [id number] 00:00:00* Test Item Value Reference Range Interpretation Comme nts GLUCOSE (test code = 2217) 92 MG/DL BUN (test code = 2208) 13 MG/DL CREATININE (test code = 2214) 1.05 MG/DL eGFR (2020 CKD-EPI) (test co de = 71125) 93 ML/MIN/1.73 CALC BUN/CREAT (test code = 2235) 12 RATIO SODIUM (test code = 2231) 143 MEQ/L POTASSIUM (test code = 2228) 4.2 MEQ/L CHLORIDE (test code = 2215) 103 MEQ/L CARBON DIOXIDE (test code = 2206) 29 MEQ/L CALCIUM (test code = 2209) 9.7 MG/DL PROTEIN, TOTAL (test code = 2229) 7.1 G/DL ALBUMIN (test code = 2201) 4.8 G/DL CALC GLOBULIN (test code = 2240) 2.3 G/DL CALC A/G RATIO (test code = 2234) 2.1 RATIO BILIRUBIN, TOTAL (test code = 2207) 0.6 MG/DL ALKALINE PHOSPHATASE (test code = 2204) 66 U/L AST (test code = 2218) 19 U/L ALT (test code = 2219) 20 U/L SARS-CoV-2 (COVID-19) by RT-PCR (HIGH RISK)2020-02-05 00:00:00* Test Item Value Reference Range Interpretation Comme nts SARS-CoV-2 INTERPRETATION (test code = 25266) NEGATIVE SOURCE (test code = 20586) NASOPHARYNGEAL SARS-CoV-2 (COVID-19) by RT-PCR (HIGH RISK)2020-02-05 00:00:00* Test Item Value Reference Range Interpretation Comme nts SARS-CoV-2 INTERPRETATION (test code = 63811) NEGATIVE SOURCE (test code = 68827) NASOPHARYNGEAL SARS-CoV-2 (COVID-19) by RT-PCR (HIGH RISK)2020-02-05 00:00:00* Test Item Value Reference Range Interpretation Comme nts SARS-CoV-2 INTERPRETATION (test code = 23459) NEGATIVE SOURCE (test code = 72654) NASOPHARYNGEAL SARS-CoV-2 (COVID-19) by RT-PCR (HIGH RISK)2020-02-05 00:00:00* Test Item Value Reference Range Interpretation Comme nts SARS-CoV-2 INTERPRETATION (test code = 47387) NEGATIVE SOURCE (test code = 62154) NASOPHARYNGEAL
[2023-07-10 12:04] LABS: Absolute Lymphocytes (CBC) 1.6 K/uL (0.7-4.9); Hematocrit 47.5 % (39.6-49.0); Lymphocytes % 20.3 % (15.3-44.8); MCV 94.9 fL (80-100); MPV 7.8 fL (7.6-11.3); Platelets 266 thou/uL (152-406)
[2023-07-10 12:08] LABS: Protime INR 1.03
--- NOTE | 2023-07-10 12:11 | RAD REPORT ---
EXAM DESCRIPTION: CT - Head Brain Wo Cont - 07/10/2023 11:50 am CLINICAL HISTORY: Declining state;Mental status change COMPARISON: No comparisons TECHNIQUE: Noncontrast head CT images were obtained without IV contrast. Multiplanar reformats were generated and reviewed. All CT scans are performed using dose optimization technique as appropriate and may include automated exposure control or mA/KV adjustment according to patient size. FINDINGS: No intracranial hemorrhage, mass, or edema. Midline structures are unremarkable. Normal ventricular caliber for age. Glasgow-white matter differentiation is preserved, without evidence of acute infarct. No abnormal extra- axial fluid collections. Mastoid air cells and visualized portions of the paranasal sinuses are clear. No acute bony findings. IMPRESSION: No evidence of an acute intracranial process.
[2023-07-10 12:19] LABS: ALT/SGPT 31 U/L (16-61); AST/SGOT 18 U/L (15-37); Albumin 3.9 g/dL (3.4-5.0); Alkaline Phosphatase 60 U/L (45-117); BUN Blood Urea Nitrogen 9 mg/dL (7-18); Bicarbonate 24 mEq/L (21-32); Bilirubin Direct 0.3 mg/dL (0-0.2); Bilirubin Total 1.3 mg/dL (0.2-1.0); Glomerular Filtration Rate 76 ml/min (=/>90); Glucose Level 168 mg/dL (74-106); Lipase 31 U/L (13-75); Potassium 3.3 mEq/L (3.5-5.1); Protein, Total 7.3 g/dL (6.4-8.2); Sodium Level 139 mEq/L (136-145)
[2023-07-10] MEDS ORDERED: THIAMINE 200 MG/2 ML INJ ONE (12:33)
[2023-07-10 13:19] LABS: Specific Gravity < 1.005 (1.005-1.030); Urine Bacteria <20 /HPF (<20); Urine Bilirubin NEGATIVE (Negative); Urine Blood Negative (Negative); Urine Clarity Clear (Clear); Urine Color Colorless (Yellow); Urine Glucose TRACE (Negative); Urine Protein NEGATIVE (Negative); Urine RBC None Seen /HPF (None Seen); Urine Urobilinogen Normal (Normal); Urine pH 5.5 (5.0-7.0)
[2023-07-10 13:33] LABS: Barbiturates NEGATIVE (NEGATIVE); Benzodiazepines NEGATIVE (NEGATIVE); Cocaine NEGATIVE (NEGATIVE); METHAMPHETAM NEGATIVE (NEGATIVE); Methadone NEGATIVE (NEGATIVE); Opiates NEGATIVE (NEGATIVE); Phencyclidine NEGATIVE (NEGATIVE); THC Cannibis NEGATIVE (NEGATIVE)
[2023-07-10] MEDS ORDERED: THIAMINE HCL 100 MG, FOLIC ACID 1 MG, MULTIVITAMINS INJ 10 ML in NA CHLORIDE 0.9% 1,000 ML IV ONE (14:00)
--- NOTE | 2023-07-10 14:17 | ER ---
Nurse's Notes [facility] Name: Flakito Claudio Age: 42 yrs Sex: Male : 1980 Arrival Date: 07/10/2023 Time: 11:33 Bed 4 Private MD: Diagnosis: Essential (primary) hypertension;Tobacco abuse counseling;Tobacco use;Adjustment disorder with anxiety;Bipolar disorder, unspecified Presentation: 07/10 12:12 Chief complaint: Patient states: " I've been feeling like my brain is on fire and I ph have been trying to sleep a lot but when I sleep I have nightmares and when I close my eyes I see things, and when I look at stuff it's like I don't understand what it is." Pt tearful, admits to drinking 2 beers daily, also reports smoking synthetic marijuana, states, " But it was like last week I think.". Coronavirus screen: Vaccine status: Patient reports receiving the 1st dose of the Covid vaccine. Ebola Screen: No symptoms or risks identified at this time. Initial Sepsis Screen: Does the patient meet any 2 criteria? No. Patient's initial sepsis screen is negative. Does the patient have a suspected source of infection? No. Patient's initial sepsis screen is negative. Risk Assessment: Do you want to hurt yourself or someone else? Patient reports no desire to harm self or others. Note Reports hx of anxiety and bipolar disorder, has not been on medication for some years. Onset of symptoms was July 10, 2023. 12:12 Method Of Arrival: Ambulatory ph 12:12 Acuity: SUJATHA 2 ph Triage Assessment: 12:15 General: Appears in no apparent distress. Behavior is cooperative, anxious, crying. ph Pain: Denies pain. Neuro: Level of Consciousness is awake, alert, obeys commands, Oriented to person, place, situation. Cardiovascular: Capillary refill < 3 seconds in bilateral fingers Patient's skin is warm and dry. Respiratory: Airway is patent Respiratory effort is even, unlabored. GI: No signs and/or symptoms were reported involving the gastrointestinal system. Musculoskeletal: Capillary refill Range of motion: intact in all extremities. Historical: - Allergies: 12:15 No Known Allergies; ph - PMHx: 12:15 Bipolar disorder; Hypertension; intussusception; ph - Immunization history:: Adult Immunizations unknown. - Social history:: Smoking status: Patient reports the use of cigarette tobacco products, smokes one pack cigarettes per day. Screenin:16 [facility] ED Fall Risk Assessment (Adult) History of falling in the last 3 months, ph including since admission No falls in past 3 months (0 pts) Confusion or Disorientation Yes (5 pts) Intoxicated or Sedated No (0 pts) Impaired Gait No (0 pts) Mobility Assist Device Used No (0 pt) Altered Elimination Score/Fall Risk Level 3 or more points = High Risk Oriented to surroundings, Maintained a safe environment, Hourly rounding (assess needs \\T\\ fall precautionary measures) done, Used ambulatory aids as needed (educated on \\T\\ assisted with). Abuse screen: Denies threats or abuse. Denies injuries from another. Nutritional screening: No deficits noted. Tuberculosis screening: No symptoms or risk factors identified. Assessment: 12:57 General: SEE TRIAGE ASSESSMENT. ph Vital Signs: 12:06 BP 125 / 93; Pulse 82; Resp 18; Pulse Ox 100% on R/A; ph 12:52 BP 118 / 101; Pulse 75; Resp 8; Pulse Ox 100% on R/A; ph 14:33 BP 159 / 97; Pulse 77; Resp 18; Temp 97.5; Pulse Ox 98% on R/A; ph ED Course: 11:34 Patient arrived in ED. im 11:38 Hansel Pate MD is Attending Physician. val 11:47 Indira Huber, RN is Primary Nurse. ph 11:47 Inserted saline lock: in right antecubital area, using aseptic technique. Blood ls5 collected. 11:52 CT Head Brain wo Cont In Process Unspecified. EDMS 12:15 Triage completed. ph 12:15 Arm band placed on Patient placed in an exam room, on a stretcher, on diagnostic cardiac sonographer, ph on pulse oximetry. 12:16 Patient has correct armband on for positive identification. Bed in low position. Call ph light in reach. Side rails up X2. Client placed on continuous cardiac and pulse oximetry monitoring. NIBP monitoring applied. Door closed. Noise minimized. 14:14 Abdullahi Park MD is Referral Physician. val 14:15 Michael Smiley MD is Referral Physician. val 14:33 No provider procedures requiring assistance completed. IV discontinued, intact, ph bleeding controlled, No redness/swelling at site. Pressure dressing applied. Administered Medications: 13:30 Drug: Thiamine IV 100 mg IV at per protocol once Route: IV; Rate: per protocol; Site: ph left antecubital; 14:19 Not Given (Other Intervention Used): Banana Bag - (ns 0.9% 1000 ml, folic acid ivpb 1 ph mg, [id number] mg, multivitamin1 amp) IV at 500 ml/hr once 14:32 Drug: Lisinopril PO 20 mg PO once Route: PO; ph 14:32 Follow up: Response: No adverse reaction; Medication administered at discharge. ph 14:32 Drug: Aspirin PO Chewable Tablet 81 mg PO once Route: PO; ph 14:32 Follow up: Response: No adverse reaction; Medication administered at discharge. Medication: 12:57 VIS not applicable for this client. ph Outcome: 14:16 Discharge ordered by . [facility] 14:33 Discharged to home ambulatory, 14:33 Condition: good 14:33 Discharge instructions given to patient, Instructed on discharge instructions, follow up and referral plans. medication usage, Demonstrated understanding of instructions, follow-up care, medications, 14:34 Patient left the ED. Signatures: Dispatcher [employer] EDHansel Hopkins MD MD cha Hall, Patricia, RN RN Aric Flor [facility] Marcelle Garay
--- NOTE | 2023-07-10 14:17 | EDPHYS ---
Physician Documentation [facility] Name: Flakito Claudio Age: 42 yrs Sex: Male : 1980 Arrival Date: 07/10/2023 Time: 11:33 Bed 4 Private MD: ED Physician Hansel Pate HPI: 07/10 14:08 This 42 yrs old Male presents to ER via Ambulatory with complaints of Altered val Mental Status. 14:08 The patient presents with trouble concentrating. Onset: The symptoms/episode val began/occurred 2 day(s) ago. Possible causes: CVA or TIA, drug use, alcohol, low blood sugar. Associated signs and symptoms: Pertinent positives: stress. Current symptoms: In the emergency department the patient's symptoms have improved, moderately, is more alert. Patient's baseline: Neuro: alert and fully oriented. The patient has experienced similar episodes in the past, a few times. Historical: - Allergies: 12:15 No Known Allergies; ph - PMHx: 12:15 Bipolar disorder; Hypertension; intussusception; ph - Immunization history:: Adult Immunizations unknown. - Social history:: Smoking status: Patient reports the use of cigarette tobacco products, smokes one pack cigarettes per day. ROS: 14:12 Constitutional: Negative for fever, chills, and weight loss, Eyes: Negative for injury, val pain, redness, and discharge, ENT: Negative for injury, pain, and discharge, Neck: Negative for injury, pain, and swelling, Cardiovascular: Negative for chest pain, palpitations, and edema, Respiratory: Negative for shortness of breath, cough, wheezing, and pleuritic chest pain, Abdomen/GI: Negative for abdominal pain, nausea, vomiting, diarrhea, and constipation, Back: Negative for injury and pain, : Negative for injury, bleeding, discharge, and swelling, MS/Extremity: Negative for injury and deformity, Skin: Negative for injury, rash, and discoloration, Psych: Negative for depression, anxiety, suicide ideation, homicidal ideation, and hallucinations, Allergy/Immunology: Negative for hives, rash, and allergies, Endocrine: Negative for neck swelling, polydipsia, polyuria, polyphagia, and marked weight changes, Hematologic/Lymphatic: Negative for swollen nodes, abnormal bleeding, and unusual bruising, 14:12 Neuro: Positive for weakness, Exam: 14:12 Constitutional: This is a well developed, well nourished patient who is awake, alert, val and in no acute distress. Head/Face: Normocephalic, atraumatic. Eyes: Pupils equal round and reactive to light, extra-ocular motions intact. Lids and lashes normal. Conjunctiva and sclera are non-icteric and not injected. Cornea within normal limits. Periorbital areas with no swelling, redness, or edema. ENT: Nares patent. No nasal discharge, no septal abnormalities noted. Tympanic membranes are normal and external auditory canals are clear. Oropharynx with no redness, swelling, or masses, exudates, or evidence of obstruction, uvula midline. Mucous membranes moist. Neck: Trachea midline, no thyromegaly or masses palpated, and no cervical lymphadenopathy. Supple, full range of motion without nuchal rigidity, or vertebral point tenderness. No Meningismus. Chest/axilla: Normal chest wall appearance and motion. Nontender with no deformity. No lesions are appreciated. Cardiovascular: Regular rate and rhythm with a normal S1 and S2. No gallops, murmurs, or rubs. Normal PMI, no JVD. No pulse deficits. Respiratory: Lungs have equal breath sounds bilaterally, clear to auscultation and percussion. No rales, rhonchi or wheezes noted. No increased work of breathing, no retractions or nasal flaring. Abdomen/GI: Soft, non-tender, with normal bowel sounds. No distension or tympany. No guarding or rebound. No evidence of tenderness throughout. Back: No spinal tenderness. No costovertebral tenderness. Full range of motion. Male : Normal genitalia with no discharge or lesions. Skin: Warm, dry with normal turgor. Normal color with no rashes, no lesions, and no evidence of cellulitis. MS/ Extremity: Pulses equal, no cyanosis. Neurovascular intact. Full, normal range of motion. Neuro: Awake and alert, GCS 15, oriented to person, place, time, and situation. Cranial nerves II-XII grossly intact. Motor strength 5/5 in all extremities. Sensory grossly intact. Cerebellar exam normal. Normal gait. Psych: Awake, alert, with orientation to person, place and time. Behavior, mood, and affect are within normal limits. 14:12 ECG was reviewed by the Attending Physician. Vital Signs: 12:06 BP 125 / 93; Pulse 82; Resp 18; Pulse Ox 100% on R/A; ph 12:52 BP 118 / 101; Pulse 75; Resp 8; Pulse Ox 100% on R/A; ph 14:33 BP 159 / 97; Pulse 77; Resp 18; Temp 97.5; Pulse Ox 98% on R/A; ph MDM: 11:38 Patient medically screened. val 14:13 Differential Diagnosis: CVA, electrolyte abnormality, alcohol intoxication, val hypoglycemia, intracranial bleed, overdose, seizure, TIA, UTI, volume depletion. Data reviewed: vital signs, nurses notes, EMS record, lab test result(s), EKG, radiologic studies, CT scan. Consideration of Admission/Observation Escalation of care including admission/observation considered. I considered the following discharge prescriptions or medication management in the emergency department Medications were administered in the Emergency Department. See MAR. Test considered but Not performed: MRI: no mri brain. Care significantly affected by the following chronic conditions: Hypertension, bipolar. Counseling: I had a detailed discussion with the patient and/or guardian regarding the historical points, exam findings, and any diagnostic results supporting the discharge/admit diagnosis, the presence of at least one elevated blood pressure reading (>120/80) during this emergency department visit, lab results, the need for outpatient follow up, for definitive care, a nail cutter, a family practitioner, a psychiatrist. 07/10 11:39 Order name: Acetaminophen; Complete Time: 13:57 07/10 11:39 Order name: Basic Metabolic Panel; Complete Time: 13:57 07/10 11:39 Order name: CBC with Diff; Complete Time: 13:57 07/10 11:39 Order name: ETOH Level; Complete Time: 13:57 07/10 11:39 Order name: Hepatic Function; Complete Time: 13:57 07/10 11:39 Order name: PT-INR; Complete Time: 13:57 07/10 11:39 Order name: Ptt, Activated; Complete Time: 13:57 07/10 11:39 Order name: Salicylate; Complete Time: 13:57 val 07/10 11:39 Order name: Urinalysis w/ reflexes; Complete Time: 13:57 07/10 11:39 Order name: Urine Drug Screen; Complete Time: 13:57 07/10 11:39 Order name: Lipase; Complete Time: 13:57 [facility] 07/10 11:39 Order name: CT Head Brain wo Cont; Complete Time: 13:57 [facility] 07/10 11:39 Order name: EKG - Nurse/Tech; Complete Time: 12:12 [facility] 07/10 11:39 Order name: IV Saline Lock; Complete Time: 11:46 [facility] 07/10 11:39 Order name: Labs collected and sent; Complete Time: 12:12 [facility] 07/10 11:39 Order name: Suicide Screening (Juana Diaz); Complete Time: 12:19 [facility] 07/10 11:39 Order name: Seizure Precautions; Complete Time: 12:19 [facility] EC:12 Rate is 72 beats/min. Rhythm is regular. QRS [place] is Normal. SC interval is normal. No val Q waves. T waves are Normal. No ST changes noted. Clinical impression: Normal ECG and No evidence of ischemia. Interpreted by me. Reviewed by me. Administered Medications: 13:30 Drug: Thiamine IV 100 mg IV at per protocol once Route: IV; Rate: per protocol; Site: left antecubital; 14:19 Not Given (Other Intervention Used): Banana Bag - (ns 0.9% 1000 ml, folic acid ivpb 1 ph mg, [id number] mg, multivitamin1 amp) IV at 500 ml/hr once 14:32 Drug: Lisinopril PO 20 mg PO once Route: PO; ph 14:32 Follow up: Response: No adverse reaction; Medication administered at discharge. ph 14:32 Drug: Aspirin PO Chewable Tablet 81 mg PO once Route: PO; ph 14:32 Follow up: Response: No adverse reaction; Medication administered at discharge. Disposition Summary: 07/10/23 14:16 Discharge Ordered Notes: Location: Home val Problem: new val Symptoms: have improved val Condition: Stable val Diagnosis - Essential (primary) hypertension val - Tobacco abuse counseling val - Tobacco use val - Adjustment disorder with anxiety val - Bipolar disorder, unspecified val Followup: val - With: Private Physician - When: 2 - 3 days - Reason: Recheck today's complaints, Continuance of care, Re-evaluation by your physician Followup: val - With: Abdullahi Park MD - When: 2 - 3 days - Reason: Recheck today's complaints, Re-evaluation by your physician Followup: val - With: Michael Smiley MD - When: 2 - 3 days - Reason: Recheck today's complaints, Re-evaluation by your physician Discharge Instructions: - Discharge Summary Sheet val - Adjustment Disorder, Adult val - Hypertension, Adult val - Steps to Quit Smoking val - Health Risks of Smoking val - Hypertension, Adult, [id number] val - Steps to Quit Smoking, [id number] val - How to Take Your Blood Pressure, [id number] val - Aspirin and Your Heart val - Managing Your Hypertension val - Managing the Challenge of Quitting Smoking val - Mixed Bipolar Disorder val - Supporting Someone With Bipolar Disorder val Forms: - Medication Reconciliation Form val - Thank You Letter val - Antibiotic Education val - Prescription Opioid Use val - Patient Portal Instructions val - Leadership Thank You Letter [facility] Prescriptions: - Lisinopril 10 mg Oral Tablet - take 1 tablet ORAL route once daily; 20 tablet; Refills: 0, Product Selection val Permitted Signatures: Dispatcher [employer] Hansel Gordillo MD MD cha Hall, Patricia RN RN ph
[2023-07-10] MEDS ORDERED: ASPIRIN 81 MG CHEWABLE TABLET ONE (14:22)
[2023-07-10] MEDS ORDERED: lisinopriL 20 MG TAB ONE (14:22)
[2023-07-10 14:59] VITALS: BP 159/97; TEMP 97.5; O2SAT 98
== END 2023-07-10 14:34 | disposition home or self-care (01) ==
LOC: ER 11:33
DX: F43.22 Adjustment disorder with anxiety (principal); F31.9 Bipolar disorder, unspecified; I10 Essential (primary) hypertension; Z72.0 Tobacco use; Z71.6 Tobacco abuse counseling
CPT/HCPCS: 36415; 70450; 80048; 80076; 80143; 80179; 80307; 81001; 82077; 83690; 85025; 85610; 85730; 96374; 99284; J3411; J7030

== ENCOUNTER 2024-05-17 09:45 | Emergency (ER) | payer SELFPAY ==
--- OUTSIDE RECORDS SUMMARY | 2024-05-17 09:49 | XMS REPORT | Continuity of Care Document ---
Author Name Unknown Address [address] [facility] [address] [place] [address] [facility] Address [address] [facility]. [address] [place] [address] Care Team Providers Care Assistant Professor Sculpture Name Role Phone Zulma Rausch Primary Care Physician Medications Ordered Medication Name Filled Medication Name Start Date Stop Date Current Medication? Ordering Clinician Indication Dosage Frequency Signature (SIG) Comments Components Source ondansetron 8 mg disintegrat ing tablet 2023-07 00:00: 00 Yes 1mg Nam Fine ibuprofen 800 mg tablet 2023-07 00:00: 00 Yes 1mg Namholli Fine triamcinolo ne acetonide 0.1 % topical cream 03-24 00:00: 00 Yes 1% Nam Fine prednisone 20 mg tablet 03-24 00:00: 00 Yes 1mg Nam Fine TAKE 1 TABLET BY MOUTH EVERYDAY AT BEDTIME 08-19 00:00: 00 Yes 100 Namholli Fine TAKE 1 TABLET DAILY. 08-19 00:00: 00 Yes 10 Namholli Fine TAKE 1 TABLET DAILY. 2022-07 00:00: 00 10-03 00:00 :00 No 100 Nam Justyn Fine TAKE 1 TABLET AT BEDTIME. 2022-07 00:00: 00 10-03 00:00 :00 No 100 Nam Justyn Fine TAKE 1 TABLET DAILY. 2022-07 00:00: 00 10-03 00:00 :00 No 10 Nam Justyn Fine TAKE 1 TABLET DAILY. 2022-07 00:00: 00 10-03 00:00 :00 No 10 Nam Justyn Fine TAKE 2 TABLETS ON DAY 1 THEN TAKE 1 TABLET A DAY FOR 4 DAYS. 2022-07 00:00: 00 10-03 00:00 :00 No 250 Nam Fine TAKE 5 ML EVERY 4 TO 6 HOURS NEEDED. 2022-07 00:00: 00 10-03 00:00 :00 No [id number] Nam Fine TAKE 1 TABLET BY MOUTH EVERY DAY 2022-07 00:00: 00 Yes Nam Fine TAKE 1 TABLET BY MOUTH EVERY 12 HOURS 03-04 00:00: 00 Yes Nam Fine TAKE 1 TABLET BY MOUTH EVERY 12 HOURS NEEDED FOR PAIN 03-04 00:00: 00 Yes Nam Fine TAKE 1 TABLET BY MOUTH EVERY 8 HOURS 03-04 00:00: 00 Yes Nam Fine TAKE ONE (1) CAPSULE(S) BY MOUTH THREE TIMES A DAY FOR 7 DAYS. 2021-07 00:00: 00 No TAKE ONE (1) CAPSULE(S) BY MOUTH THREE TIMES A DAY FOR 7 DAYS. 2021-07 00:00: 00 Yes Nam Fine 1 po q hs 03-27 00:00: 00 No 1 po q hs 03-27 00:00: 00 Yes Nam Fine 1 po @ hs prn 03-26 00:00: 00 Yes 100 Nam Fine 1 po q hs 03-26 00:00: 00 Yes 100 Nam Fine 1 po q d 03-26 00:00: 00 Yes 10 Nam Fine TAKE ONE (1) CAPSULE(S) BY MOUTH THREE TIMES A DAY FOR 7 DAYS. 03-19 00:00: 00 Yes 500 Nam Fine TAKE ONE (1) CAPSULE(S) BY MOUTH THREE TIMES A DAY FOR 7 DAYS. 03-19 00:00: 00 No 500 TAKE ONE (1) CAPSULE(S) BY MOUTH THREE TIMES A DAY FOR 7 DAYS. 03-19 00:00: 00 No 500 Vital Signs Vital Name Observation Time Observation Value Comments S ource BP Systolic 2024-04-30 09:03:00 160 mm[Hg] Shivam Fine BP Diastolic 2024-04-30 09:03:00 101 mm[Hg] Rafy phen F Babatunde Weight Measured 2024-04-30 09:03:00 189.20 pounds Nam F Babatunde Height Measured 2024-04-30 09:03:00 63.00 inches Nam F Babatunde Body Temperature 2024-04-30 09:03:00 97.30 degrees Nam F Babatunde Heart Rate 2024-04-30 09:03:00 75.00 /min Cristina en F Babatunde Respiratory Rate 2024-04-30 09:03:00 16.00 /min Nam F Babatunde BP Systolic 2024-04-22 14:59:00 149 mm[Hg] Step hen F Babatunde BP Diastolic 2024-04-22 14:59:00 104 mm[Hg] Rafy phen F Babatunde Weight Measured 2024-04-22 14:59:00 190.20 pounds Nam F Babatunde Height Measured 2024-04-22 14:59:00 63.00 inches Nam F Babatunde Body Temperature 2024-04-22 14:59:00 97.70 degrees Nam F Babatunde Heart Rate 2024-04-22 14:59:00 80.00 /min Cristina en F Babatunde Respiratory Rate 2024-04-22 14:59:00 18.00 /min Nam F Babatunde Height Measured 2024-03-24 08:11:00 63.00 inches Nam F Babatunde Body Temperature 2024-03-24 08:11:00 97.80 degrees Nam F Babatunde Heart Rate 2024-03-24 08:11:00 68.00 /min Cristina en F Babatunde Respiratory Rate 2024-03-24 08:11:00 18.00 /min Nam F Babatunde BP Systolic 2024-03-24 08:11:00 135 mm[Hg] Step hen F Babatunde BP Diastolic 2024-03-24 08:11:00 78 mm[Hg] Rafy phen F Babatunde Weight Measured 2024-03-24 08:11:00 191.20 pounds Nam F Babatunde BP Systolic 2023-09-09 14:18:00 135 mm[Hg] Step hen F Babatunde BP Diastolic 2023-09-09 14:18:00 91 mm[Hg] Rafy phen F Babatunde Weight Measured 2023-09-09 14:18:00 183.60 pounds Nam F Babatunde Height Measured 2023-09-09 14:18:00 63.00 inches Nam F Babatunde Body Temperature 2023-09-09 14:18:00 98.00 degrees Nam F Babatunde Heart Rate 2023-09-09 14:18:00 77.00 /min Cristina en F Babatunde Respiratory Rate 2023-09-09 14:18:00 18.00 /min Nam F Babatunde BP Systolic 2023-07-23 16:47:00 134 mm[Hg] Step hen F Babatunde BP Diastolic 2023-07-23 16:47:00 93 mm[Hg] Rafy phen F Babatunde Weight Measured 2023-07-23 16:47:00 184.20 pounds Nam F Babatunde Height Measured 2023-07-23 16:47:00 63.00 inches Nam F Babatunde Body Temperature 2023-07-23 16:47:00 98.30 degrees Nam F Babatunde Heart Rate 2023-07-23 16:47:00 78.00 /min Cristina en F Babatunde Respiratory Rate 2023-07-23 16:47:00 18.00 /min Nam F Babatunde BP Systolic 2022-05-07 13:43:00 128 mm[Hg] Step hen F Babatunde BP Diastolic 2022-05-07 13:43:00 87 mm[Hg] Rafy phen F Babatunde Weight Measured 2022-05-07 13:43:00 190.80 pounds Nam F Babatunde Height Measured 2022-05-07 13:43:00 63.00 inches Nam F Babatunde Body Temperature 2022-05-07 13:43:00 97.50 degrees Nam F Babatunde Heart Rate 2022-05-07 13:43:00 85.00 /min Cristina en F Babatunde Respiratory Rate 2022-05-07 13:43:00 24.00 /min Nam F Babatunde BP Systolic 2022-03-20 16:16:00 163 mm[Hg] Step hen F Babatunde BP Diastolic 2022-03-20 16:16:00 107 mm[Hg] Rafy phen F Babatunde Weight Measured 2022-03-20 16:16:00 192.20 pounds Nam F Babatunde Height Measured 2022-03-20 16:16:00 63.00 inches Nam F Babatunde Body Temperature 2022-03-20 16:16:00 98.20 degrees Nam Fine Heart Rate 2022-03-20 16:16:00 62.00 /min Cristina en F Babatunde Respiratory Rate 2022-03-20 16:16:00 18.00 /min Nam Fine BP Systolic 2019-01-26 12:07:00 143 mm[Hg] Step hen F Babatunde BP Diastolic 2019-01-26 12:07:00 102 mm[Hg] Rafy phen F Babatunde Weight Measured 2019-01-26 12:07:00 183.40 pounds Nam Fine Height Measured 2019-01-26 12:07:00 63.00 inches Nam Fine Body Temperature 2019-01-26 12:07:00 97.70 degrees Nam Fine Heart Rate 2019-01-26 12:07:00 75.00 /min Cristina en F Babatunde Respiratory Rate 2019-01-26 12:07:00 Nam Fine Plan of Care Planned Activity Planned Date Details Comments Source Goal Plan of Care Note [code = 69429-2] Goal Plan of Care Note [code = 04364-7] Goal Plan of Care Note [code = 58345-1] Goal Plan of Care Note [code = 49345-4] Goal Plan of Care Note [code = 71831-4] Goal Plan of Care Note [code = 95326-9] Goal Plan of Care Note [code = 59551-4] Goal Plan of Care Note [code = 15045-6] Goal Plan of Care Note [code = 64380-8] Goal Plan of Care Note [code = 51146-6] Goal Plan of Care Note [code = 50332-0] Goal Plan of Care Note [code = 53129-0] Goal Plan of Care Note [code = 83501-4] Goal Plan of Care Note [code = 27359-2] Encounters Start Date/Time End Date/Time Encounter Type Admission Type Attending Clinicians Care Facility Care Department Encounter ID Source 2024-05-06 16:27:35 2024-05-06 16:27:35 Outpatient [facility] [id number] Nam Fine 2024-04-30 08:55:39 2024-04-30 08:55:39 Outpatient [facility] [id number] Nam Fine 2024-04-30 00:00:00 2024-04-30 00:00:00 Outpatient Visit [facility] [id number] Nam Fine 2024-04-22 14:52:36 2024-04-22 14:52:36 Outpatient [facility] [id number] Nam Fine 2024-03-30 15:23:50 2024-03-30 15:23:50 Outpatient SFA SFA [id number] Nam Fine 2024-03-24 08:02:42 2024-03-24 08:02:42 Outpatient SFA SFA [id number] Nam Fine 2024-03-24 00:00:00 2024-03-24 00:00:00 Outpatient Visit SFA [id number] Nam Fine 2024-03-23 14:37:04 2024-03-23 14:37:04 Outpatient SFA SFA [id number] Nam Fine 2023-09-09 13:57:26 2023-09-09 13:57:26 Outpatient SFA SFA [id number] Nam Fine 2023-07-23 16:42:31 2023-07-23 16:42:31 Outpatient SFA SFA [id number] Nam Fine 2022-05-07 13:42:49 2022-05-07 13:42:49 Outpatient SFA SFA [id number] Nam Fine 2022-05-07 00:00:00 2022-05-07 00:00:00 Outpatient Visit [id number] 2022-03-20 00:00:00 2022-03-20 00:00:00 Outpatient Visit [id number] Results Test Description Test Time Test Comments Results Result Co mments Source HEPATITIS PANEL, [id number] 04:14:21* Test Item Value Reference Range Interpretation Comme nts HEPATITIS A IgM (test code = 46601) NON-REACTIVE NON-REACTIVE HEPATITIS B CORE IgM (test code = 4644) NON-REACTIVE NON-REACTIVE HEPATITIS B SURF AG (test code = 2739) NON-REACTIVE NON-REACTIVE HEPATITIS C ANTIBODY (test code = 4675) NON-REACTIVE NON-REACTIVE INTERPRETATION HEPATITIS A: (test code = 2552) (NOTE) Hepatitis A sero logy shows no evidence of acute hepatitis A. INTERPRETATION HEPATITIS B: (test code = 89981) (NOTE) Hepatitis B sero logy shows no evidence of acute hepatitis B andno indication of exposure to hepatitis B virus in the previous yusef eight months. INTERPRETATION HEPATITIS C: (test code = 20947) (NOTE) Hepatitis C sero logy shows no evidence of exposure to hepatitisC virus at this time. It can take up to 12 months after exposure tothe hepatitis C virus for antibodies to become detectable in the blood in certain patients. UNLESS OTHERWISE INDICATED, ALL TESTING PERFORMED AT [facility] [address] [place] [address] [employer] DIRECTOR: SHIRA WISE M.D. CLIA NUMBER [id number] [facility] [place]. [id number] HIV 1/2 4TH GEN, RFLX [id number] 00:00:00* Test Item Value Reference Range Interpretation Comme nts HIV 1/2 4TH GEN, RFLX CONF ( test code = 3514) NON-REACTIVE Nam FineCHON HEPATITIS [id number] 00:00:00* Test Item Value Reference Range Interpretation Comme nts HEPATITIS A IgM (test code = 80970) NON-REACTIVE HEPATITIS B CORE IgM (test c ode = 4644) NON-REACTIVE HEPATITIS B SURF AG (test co de = 2739) NON-REACTIVE HEPATITIS C ANTIBODY (test c ode = 4675) NON-REACTIVE INTERPRETATION HEPATITIS A: (test code = 2552) (NOTE) INTERPRETATION HEPATITIS B: (test code = 84085) (NOTE) INTERPRETATION HEPATITIS C: (test code = 74514) (NOTE) Nam FineANA REFLEX AUTOIMMUNE AB [id number] 02:54:59* Test Item Value Reference Range Interpretation Comme nts ANTI-NUCLEAR ANTIBODIES (test code = 3506) NEGATIVE NEGATIVE Methodology is I ndirect Immunofluorescent Assay (IFA) with a titering system using [id number] cells (Hep2 cells transfected with SS-A/Ro). TRE PATTERN (REPORTED TITER) (test code = 02669) SEE BELOW HOMOGENEOUS (test code = 91681) NEGATIVE TITER NEGATIVE SPECKLED (test code = 295208) NEGATIVE TITER NEGATIVE DENSE FINE SPECKLED (test code = 52035) NEGATIVE TITER NEGATIVE CENTROMERE (test code = 962753) NEGATIVE TITER NEGATIVE COARSE SPECKLED (test code = 798439) NEGATIVE TITER NEGATIVE DISCRETE NUCLEAR DOTS (test code = 766811) NEGATIVE TITER NEGATIVE NUCLEOLAR (test code = 100781) NEGATIVE TITER NEGATIVE NUCLEAR MEMBRANE (test code = 912084) NEGATIVE TITER NEGATIVE CYTO. RETICULAR (ADOLFO) (test code = 204072) NEGATIVE NEGATIVE COMMENTS (test code = 825534) NONE METHOD (test code = 74581) (NOTE) TESTING PERFORME D BY [employer] IFA PLATFORM.THE METHOD INCLUDES A SCREEN THRESHOLD OF 1:80, DIGITIZED AND COMPUTER ALGORITHM-ASSISTED INTERPRETATION OF TITERS AND DIGITAL PATTERNS, AND HEp-2 CELL LINE SUBSTRATE. ADDITIONAL UNUSUAL PATTERNS WILL BE GIVEN COMMENTS.FOR MORE INFORMATION, SEE [email or web address] UNLESS OTHERWISE INDICATED, ALL TESTING PERFORMED AT [facility] [address] [place] [address] [employer] B[employer] DIRECTOR: SHIRA WISE M.D. CLIA NUMBER [id number] [facility] [place]. [id number] TRE REFLEX AUTOIMMUNE AB [id number] 00:00:00* Test Item Value Reference Range Interpretation Comme nts ANTI-NUCLEAR ANTIBODIES (star t code = 3506) NEGATIVE TRE PATTERN (REPORTED TITER) (test code = 52426) SEE BELOW HOMOGENEOUS (test code = 35932) NEGATIVE TITER SPECKLED (test code = 887621) NEGATIVE TITER DENSE FINE SPECKLED (test co de = 45916) NEGATIVE TITER CENTROMERE (test code = 778804) NEGATIVE TITER COARSE SPECKLED (test code = 895528) NEGATIVE TITER DISCRETE NUCLEAR DOTS (test code = 514609) NEGATIVE TITER NUCLEOLAR (test code = 247719) NEGATIVE TITER NUCLEAR MEMBRANE (test code = 328640) NEGATIVE TITER CYTO. RETICULAR (ADOLFO) (test code = 682801) NEGATIVE COMMENTS (test code = 877236) NONE METHOD (test code = 05659) (NOTE) Nam Alejandra AustinLIPID [id number] 05:34:40* Test Item Value Reference Range Interpretation Comme nts CHOLESTEROL (test code = 2210) 196 MG/DL <200 TRIGLYCERIDES (test code = 2232) 78 MG/DL <150 HDL CHOLESTEROL (test code = 2220) 50 MG/DL >39 CALC LDL CHOL (test code = 2237) 129 MG/DL <100 H NOTE: CALCULATED LDL IS BASED ON ALCEIA-NEGRON METHOD WHICHINCLUDES ADJUSTABLE TRIGLYCERIDE:VLDL CHOLESTEROL RATIO.THIS FACTOR VARIES BY MEASURED TRIGLYCERIDE AND NON-HDLCHOLESTEROL CONCENTRATIONS WITH INCREASED CALCULATED LDL SEENIN HIGHER TRIGLYCERIDE OR LOWER NON-HDL SPECIMENS. FOR MOREINFORMATION, SEE CLIENT ANNOUNCEMENT AT [email or web address] RISK RATIO LDL/HDL (test code = 2238) 2.58 RATIO <3.55 HEMOGLOBIN [id number] 04:50:13* Test Item Value Reference Range Interpretation Comme nts HEMOGLOBIN A1c (test code = 60634) 5.4 % 4.2-5.6 CBC W/AUTO DIFF WITH [id number] 04:05:29* Test Item Value Reference Range Interpretation Comme nts WBC (test code = 1001) 6.6 K/UL 3.5-11.0 RBC (test code = 1002) 4.65 M/UL 4.50-6.10 HEMOGLOBIN (test code = 1003) 14.8 G/DL 13.5-17.0 HEMATOCRIT (test code = 1004) 44.6 % 40.0-51.0 MCV (test code = 1005) 95.9 fL 80.0-99.0 MCH (test code = 1006) 31.8 PG 25.0-33.0 MCHC (test code = 1007) 33.2 G/DL 31.0-36.0 RDW (test code = 1038) 12.8 % 11.5-15.0 NEUTROPHILS (test code = 1008) 53.1 % LYMPHOCYTES (test code = 1010) 34.5 % MONOCYTES (test code = 1011) 7.8 % EOSINOPHILS (test code = 1012) 3.8 % BASOPHILS (test code = 1013) 0.5 % IMMATURE GRANULOCYTES (test code = 1036) 0.3 % NUCLEATED RBCS (test code = 1065) 0.0 /100 WBC'S See_Comment [Automated messa ge] The system which generated this result transmitted reference range: 0.0. The reference range was not used to interpret this result as normal/abnormal. PLATELET COUNT (test code = 1015) 217 K/UL 130-400 ABSOLUTE NEUTROPHILS (test code = 1066) 3.52 K/UL 1.50-7.50 ABSOLUTE LYMPHOCYTES (test code = 1067) 2.29 K/UL 1.00-4.00 ABSOLUTE MONOCYTES (test code = 1068) 0.52 K/UL 0.20-1.00 ABSOLUTE EOSINOPHILS (test code = 1040) 0.25 K/UL 0.00-0.50 ABSOLUTE BASOPHILS (test code = 1069) 0.03 K/UL 0.00-0.20 ABS IMMATURE GRANULOCYTES (test code = 1020) 0.02 K/UL 0.00-0.10 ABS NUCLEATED RBCS (test code = 27733) 0.00 K/UL 0.00-0.11 CBC W/AUTO [id number] 00:00:00* Test Item Value Reference Range Interpretation Comme nts WBC (test code = 1001) 6.6 K/UL RBC (test code = 1002) 4.65 M/UL HEMOGLOBIN (test code = 1003) 14.8 G/DL HEMATOCRIT (test code = 1004) 44.6 % MCV (test code = 1005) 95.9 fL MCH (test code = 1006) 31.8 PG MCHC (test code = 1007) 33.2 G/DL RDW (test code = 1038) 12.8 % NEUTROPHILS (test code = 1008) 53.1 % LYMPHOCYTES (test code = 1010) 34.5 % MONOCYTES (test code = 1011) 7.8 % EOSINOPHILS (test code = 1012) 3.8 % BASOPHILS (test code = 1013) 0.5 % IMMATURE GRANULOCYTES (test code = 1036) 0.3 % NUCLEATED RBCS (test code = 1065) 0.0 /100WBC'S PLATELET COUNT (test code = 1015) 217 K/UL ABSOLUTE NEUTROPHILS (test c ode = 1066) 3.52 K/UL ABSOLUTE LYMPHOCYTES (test c ode = 1067) 2.29 K/UL ABSOLUTE MONOCYTES (test cod e = 1068) 0.52 K/UL ABSOLUTE EOSINOPHILS (test c ode = 1040) 0.25 K/UL ABSOLUTE BASOPHILS (test cod e = 1069) 0.03 K/UL ABS IMMATURE GRANULOCYTES (t est code = 1020) 0.02 K/UL ABS NUCLEATED RBCS (test cod e = 37020) 0.00 K/UL Nam FineHEMOGLOBIN [id number] 00:00:00* Test Item Value Reference Range Interpretation Comme nts HEMOGLOBIN A1c (test code = 04462) 5.4 % Nam Alejandra AustinLIPID [id number] 00:00:00* Test Item Value Reference Range Interpretation Comme nts CHOLESTEROL (test code = 2210) 196 MG/DL TRIGLYCERIDES (test code = 2232) 78 MG/DL HDL CHOLESTEROL (test code = 2220) 50 MG/DL CALC LDL CHOL (test code = 2237) 129 MG/DL RISK RATIO LDL/HDL (test cod e = 2238) 2.58 RATIO Nam Alejandra AustinLIPID [id number] 03:35:41* Test Item Value Reference Range Interpretation [...] SPECIMENS. FOR MOREINFORMATION, SEE CLIENT ANNOUNCEMENT AT [email or web address] RISK RATIO LDL/HDL (test code = 2238) 2.84 RATIO <3.55 COMPREHENSIVE METABOLIC [id number] 03:35:41* Test Item Value Reference Range Interpretation Comme nts GLUCOSE (test code = 2217) 92 MG/DL 70-99 BUN (test code = 2208) 13 MG/DL 6-20 CREATININE (test code = 2214) 1.05 MG/DL 0.80-1.40 eGFR (2020 CKD-EPI) (test code = 10413) 93 ML/MIN/1.73 >60 CALC BUN/CREAT (test code = 2235) 12 RATIO 6-28 SODIUM (test code = 2231) 143 MEQ/L 133-146 POTASSIUM (test code = 2228) 4.2 MEQ/L 3.5-5.4 CHLORIDE (test code = 2215) 103 MEQ/L 95-107 CARBON DIOXIDE (test code = 2206) 29 MEQ/L 19-31 CALCIUM (test code = 220) 9.7 MG/DL 8.5-10.5 PROTEIN, TOTAL (test code = 222) 7.1 G/DL 6.1-8.3 ALBUMIN (test code = 220) 4.8 G/DL 3.5-5.2 CALC GLOBULIN (test code = 2240) 2.3 G/DL 1.9-3.7 CALC A/G RATIO (test code = 2234) 2.1 RATIO 1.0-2.6 BILIRUBIN, TOTAL (test code = 220) 0.6 MG/DL See_Comment [Automated me ssage] The system which generated this result transmitted reference range: <=1.2. The reference range was not used to interpret this result as normal/abnormal. ALKALINE PHOSPHATASE (test code = 2203) 66 U/L 40-117 AST (test code = 2218) 19 U/L 9-50 ALT (test code = 2219) 20 U/L 5-50 UNLESS OTHERWISE INDICATED, [facility] [address] [place] [address] [employer] B[employer] DIRECTOR: MELVI PORTER M.D. CLIA NUMBER [id number] [facility] [place]. [id number] LIPID [id number] 00:00:00* Test Item Value Reference Range Interpretation Comme nts CHOLESTEROL (test code = 2210) 205 MG/DL TRIGLYCERIDES (test code = 2232) 187 MG/DL HDL CHOLESTEROL (test code = 2220) 45 MG/DL CALC LDL CHOL (test code = 2237) 128 MG/DL RISK RATIO LDL/HDL (test cod e = 2238) 2.84 RATIO COMPREHENSIVE METABOLIC [id number] 00:00:00* Test Item Value Reference Range Interpretation Comme nts GLUCOSE (test code = 2217) 92 MG/DL BUN (test code = 2208) 13 MG/DL CREATININE (test code = 2214) 1.05 MG/DL eGFR (2020 CKD-EPI) (test co de = 92307) 93 ML/MIN/1.73 CALC BUN/CREAT (test code = [...] ALT (test code = 2219) 20 U/L LIPID [id number] 00:00:00* Test Item Value Reference Range Interpretation Comme nts CHOLESTEROL (test code = 2210) 205 MG/DL TRIGLYCERIDES (test code = 2232) 187 MG/DL HDL CHOLESTEROL (test code = 2220) 45 MG/DL CALC LDL CHOL (test code = 2237) 128 MG/DL RISK RATIO LDL/HDL (test cod e = 2238) 2.84 RATIO Nam F AustinCOMPREHENSIVE METABOLIC [id number] 00:00:00* Test Item Value Reference Range Interpretation Comme nts GLUCOSE (test code = 2217) 92 MG/DL BUN (test code = 2208) 13 MG/DL CREATININE (test code = 2214) 1.05 MG/DL eGFR (2020 CKD-EPI) (test co de = 23149) 93 ML/MIN/1.73 CALC BUN/CREAT (test code = [...] ALT (test code = 2219) 20 U/L Nam Justyn BabatundeLIPID [id number] 00:00:00* Test Item Value Reference Range Interpretation Comme nts CHOLESTEROL (test code = 2210) 205 MG/DL TRIGLYCERIDES (test code = 2232) 187 MG/DL HDL CHOLESTEROL (test code = 2220) 45 MG/DL CALC LDL CHOL (test code = 2237) 128 MG/DL RISK RATIO LDL/HDL (test cod e = 2238) 2.84 RATIO Nam Justyn BabatundeCOMPREHENSIVE METABOLIC [id number] 00:00:00* Test Item Value Reference Range Interpretation Comme nts GLUCOSE (test code = 2217) 92 MG/DL BUN (test code = 2208) 13 MG/DL CREATININE (test code = 2214) 1.05 MG/DL eGFR (2020 CKD-EPI) (test co de = 32466) 93 ML/MIN/1.73 CALC BUN/CREAT (test code = [...] ALT (test code = 2219) 20 U/L Nam Justyn [id number] (COVID-19) by RT-PCR (HIGH RISK)2020-02-05 00:00:00* Test Item Value Reference Range Interpretation Comme nts SARS-CoV-2 INTERPRETATION (test code = 48839) NEGATIVE SOURCE (test code = 12952) NASOPHARYNGEAL SARS-CoV-2 (COVID-19) by RT-PCR (HIGH RISK)2020-02-05 00:00:00* Test Item Value Reference Range Interpretation Comme nts SARS-CoV-2 INTERPRETATION (test code = 66309) NEGATIVE SOURCE (test code = 94143) NASOPHARYNGEAL SARS-CoV-2 (COVID-19) by RT-PCR (HIGH RISK)2020-02-05 00:00:00* Test Item Value Reference Range Interpretation Comme nts SARS-CoV-2 INTERPRETATION (test code = 56830) NEGATIVE SOURCE (test code = 50051) NASOPHARYNGEAL Nam Justyn [id number] (COVID-19) by RT-PCR (HIGH RISK)2020-02-05 00:00:00* Test Item Value Reference Range Interpretation Comme nts SARS-CoV-2 INTERPRETATION (test code = 95058) NEGATIVE SOURCE (test code = 42522) NASOPHARYNGEAL Nam Fine Notes Date/Time Note Provider Source Nam Alan [facility] [place]2024-08-28 00:00:00 Nam Alan [facility] [place]
[2024-05-17] MEDS ORDERED: FAMOTIDINE 20 MG/2 ML VIAL IV ONE (10:11)
[2024-05-17] MEDS ORDERED: ONDANSETRON 4 MG/2 ML VIAL ONE (10:11)
[2024-05-17 10:20] LABS: Absolute Eosinophils 0.1 K/uL (0-0.5); Absolute Lymphocytes (CBC) 2.1 K/uL (0.7-4.9); Absolute Monocytes 0.5 K/uL (0.1-1.3); Absolute Neutrophil 4.3 K/uL (1.8-8.0); Basophils % 0.3 % (0-1.3); Eosinophils % 1.6 % (0-4.4); Hemoglobin 15.1 g/dL (13.6-17.9); Lymphocytes % 29.4 % (15.3-44.8); MCH 31.5 pg (27.0-35.0); MCHC 34.4 g/dL (32.0-36.0); MCV 91.6 fL (80-100); MPV 7.7 fL (7.6-11.3); Monocytes % 7.4 % (3.3-12.3); Neutrophils % 61.3 % (41.7-73.7); Platelets 234 thou/uL (152-406); RBC Red Blood Cell Count 4.81 M/uL (4.33-5.43); Red Cell Distribution Width 13.1 % (12.1-15.2)
[2024-05-17 10:20] LABS: Specific Gravity < 1.005 (1.005-1.030); Sqamous Epithelial None Seen /HPF (None Seen); Urine Bacteria None Seen /HPF (<20); Urine Bilirubin NEGATIVE (Negative); Urine Blood Negative (Negative); Urine Clarity Clear (Clear); Urine Color Colorless (Yellow); Urine Culture Reflex Order NOT NEEDED; Urine Glucose NEGATIVE (Negative); Urine Ketones NEGATIVE (Negative); Urine Micro Reflex YN NO BILL MICROSCOPIC; Urine Nitrite NEGATIVE (Negative); Urine Protein NEGATIVE (Negative); Urine RBC None Seen /HPF (None Seen); Urine Urobilinogen Normal (Normal); Urine WBC None Seen /HPF (<5)
[2024-05-17 10:26] LABS: PT Prothrombin Time 10.4 SECONDS (9.4-12.5); Protime INR 0.93
[2024-05-17 10:26] LABS: Barbiturates NEGATIVE (NEGATIVE); Benzodiazepines NEGATIVE (NEGATIVE); Cocaine NEGATIVE (NEGATIVE); METHAMPHETAM NEGATIVE (NEGATIVE); Methadone NEGATIVE (NEGATIVE); Opiates NEGATIVE (NEGATIVE); Phencyclidine NEGATIVE (NEGATIVE); THC Cannibis NEGATIVE (NEGATIVE)
[2024-05-17 11:04] LABS: Albumin 3.6 g/dL (3.4-5.0); Albumin/Globulin Ratio 1.2 (1.1-1.8); Anion Gap 8.6 mEq/L (5.0-15.0); Bilirubin Direct 0.2 mg/dL (0-0.2); Bilirubin Indirect, Calculated 0.5 mg/dL (0.2-0.8); Bilirubin Total 0.7 mg/dL (0.2-1.0); Potassium 3.6 mEq/L (3.5-5.1); Protein, Total 6.6 g/dL (6.4-8.2); Troponin High Sensitivity 7.7 pg/mL (<58.9)
--- NOTE | 2024-05-17 11:40 | RAD REPORT ---
EXAMINATION: CT Abdomen Pelvis W Contrast CLINICAL INDICATION: Male, 43 years old. ABD PAIN TECHNIQUE: CT abdomen and pelvis was performed, after the administration of IV contrast, [facility] Axial, sagittal and coronal reconstructions were obtained. One or more of the following dose reduction techniques were used: Automated exposure control, adjustment of the mA and k V according to patient size, and iterative reconstruction. Unless otherwise specified, incidental findings do not require dedicated imaging follow-up. COMPARISON: 03/03/2023 FINDINGS: LOWER CHEST: The visualized lung bases are clear. LIVER: Normal in size and contour. No focal lesion. BILIARY SYSTEM: Status post cholecystectomy. SPLEEN: Normal size. No focal lesion. PANCREAS: No mass, ductal dilation, or ghassan-pancreatic fluid. ADRENALS: Normal; no mass. KIDNEYS: Normal size and contour. No hydronephrosis. 1 cm left renal upper to midpole cortical cyst, benign in appearance. Extrarenal pelvis on the right. URINARY BLADDER: Unremarkable. GASTROINTESTINAL TRACT: No evidence of free air, significant intra-abdominal free fluid, bowel obstru ction or abscess. Fluid opacification of nondistended central abdominal small bowel loops with short segment air-fluid levels, nonspecific. APPENDIX: Appendix not visualized, but no inflammatory changes in region of appendix. LYMPH NODES: No lymphadenopathy. MUSCULOSKELETAL: No acute or suspicious osseous abnormality. ADDITIONAL FINDINGS: Small left inguinal hernia containing fat. IMPRESSION: Nonspecific fluid opacification of nondistended central abdominal small bowel loops, may relate to mi ld enteritis or diarrheal state. No other acute or concerning abnormalities seen in the abdomen or pelvis. Other incidental findings as above.
--- NOTE | 2024-05-17 12:05 | EDPHYS ---
Physician Documentation [facility] Name: Flakito Claudio Age: 43 yrs Sex: Male : 1980 Arrival Date: 05/17/2024 Time: 09:45 Bed 14 Private MD: ED Physician Jeyson Ruby HPI: 05/17 10:01 This 43 yrs old Male presents to ER via Ambulatory with complaints of High Blood sb4 Pressure. 10:03 Patient states that he has been sober for the past few months headaches, nausea, upper sb4 abdominal pain, and intermittently swollen axillary lymph nodes. States that he saw his PCP, had blood work done that was nondiagnostic. Has been taking Motrin as needed for his symptoms. States that when he gets nauseous and throws up, his blood pressure gets very high. He states that it was 180/120 at work. He does not take any antihypertensive medications. He does state that he recently started smoking cigarettes again because of the stress that this is causing him. He reports a slight headache denies any dizziness or blurry vision. Does not report any chest pain or shortness of breath. Historical: - Allergies: 09:49 No Known Allergies; ll1 - PMHx: 09:49 Bipolar disorder; Hypertension; intussusception; ll1 - PSHx: 09:53 Cholecystectomy; ll1 - Immunization history:: Adult Immunizations up to date. - Infectious Disease History:: Denies. - Social history:: Smoking status: Patient reports the use of cigarette tobacco products, smokes one-half pack cigarettes per day, Reported history of juuling and/or vaping. ROS: 10:04 Constitutional: Negative for fever, chills, and weight loss, sb4 10:04 Abdomen/GI: Positive for abdominal pain, nausea and vomiting, 10:04 Neuro: Positive for headache, 10:04 All other systems are negative, Exam: 10:04 Constitutional: This is a well developed, well nourished patient who is awake, alert, sb4 and in no acute distress. Head/Face: Normocephalic, atraumatic. Eyes: Extra-ocular motions intact. Periorbital areas with no swelling, redness, or edema. ENT: Mucous membranes moist. Cardiovascular: Regular rate and rhythm with a normal S1 and S2. Respiratory: No increased work of breathing, no retractions or nasal flaring. Skin: Warm, dry with normal turgor. Normal color with no rashes, no lesions, and no evidence of cellulitis. 10:04 Abdomen/GI: Inspection: abdomen appears normal, Bowel sounds: normal, Palpation: soft, mild abdominal tenderness, in the epigastric area, Vital Signs: 09:51 BP 164 / 121; Pulse 82; Resp 17; Temp 97.1; Pulse Ox 99% ; Height 5 ft. 3 in. ; Pain ll1 3/10; 10:17 BP 147 / 107; Pulse 71; Resp 16; Pulse Ox 99% ; cm10 11:30 BP 144 / 96; Pulse 58; Resp 16; Pulse Ox 97% on R/A; cm10 09:51 Pain Scale: Adult ll1 MDM: 09:49 Medical Screening Exam initiated sb4 12:04 Data reviewed: vital signs, nurses notes, lab test result(s), radiologic studies, and sb4 as a result, I will discharge patient. Counseling: I had a detailed discussion with the patient and/or guardian regarding the historical points, exam findings, and any diagnostic results supporting the discharge/admit diagnosis, the presence of at least one elevated blood pressure reading (>120/80) during this emergency department visit, lab results, radiology results, the need for outpatient follow up, a risk management specialist, to return to the emergency department if symptoms worsen or persist or if there are any questions or concerns that arise at home. 05/17 09:57 Order name: Basic Metabolic Panel; Complete Time: 11:06 sb4 05/17 09:57 Order name: CBC with Diff; Complete Time: 10:23 sb4 05/17 09:57 Order name: LFT's; Complete Time: 11:06 sb4 05/17 09:57 Order name: Magnesium; Complete Time: 11:06 sb4 05/17 09:57 Order name: NT PRO-BNP; Complete Time: 11:06 sb4 05/17 09:57 Order name: PT-INR; Complete Time: 10:26 sb4 05/17 09:57 Order name: Troponin HS; Complete Time: 11:06 sb4 05/17 09:57 Order name: Lipase; Complete Time: 11:06 sb4 05/17 09:58 Order name: UDS; Complete Time: 10:28 sb4 05/17 09:58 Order name: UAM; Complete Time: 10: sb4 05/17 10:26 Order name: CT Abd/Pelvis - IV Contrast Only; Complete Time: 11:47 sb4 05/17 09:57 Order name: Cardiac monitoring; Complete Time: 10:17 sb4 05/17 09:57 Order name: EKG - Nurse/Tech; Complete Time: 10: sb4 05/17 09:57 Order name: IV Saline Lock; Complete Time: 10: sb4 05/17 09:57 Order name: Labs collected and sent; Complete Time: 10: sb4 05/17 09:57 Order name: O2 Per Protocol; Complete Time: 10: sb4 05/17 09:57 Order name: O2 Sat Monitoring; Complete Time: 10: sb4 05/17 10:29 Order name: Labs - recollect needed: recollect green, lavender blue top; Complete Time: bd 10:40 EC: Rate is 64 beats/min. Rhythm is regular, Normal Sinus Rhythm. SC interval is normal at sb4 152 msec. QRS interval is normal at 90 msec. QT interval is normal at 404 msec. No Q waves. T waves are Normal. No ST changes noted. Clinical impression: Normal ECG and No evidence of ischemia. Interpreted by me. Reviewed by me. Administered Medications: 10:17 Drug: Ondansetron IVP 4 mg IVP once; over 2 minutes Route: IVP; Site: right antecubital;cm10 10:45 Follow up: Response: No adverse reaction cm10 10:17 Drug: Famotidine IVP 20 mg IVP once; dilute with 10 mL 0.9% NaCl; give over 2 minutes cm10 Route: IVP; Site: right antecubital; 10:45 Follow up: Response: No adverse reaction cm10 Disposition Summary: 05/17/24 12:05 Discharge Ordered Notes: Location: Home sb4 Problem: new sb4 Symptoms: have improved sb4 Condition: Stable sb4 Diagnosis - Essential (primary) hypertension sb4 - Enteritis sb4 Followup: sb4 - With: Aayush Mace MD - When: As needed - Reason: If symptoms return, Further diagnostic work-up Discharge Instructions: - Discharge Summary Sheet sb4 - Viral Gastroenteritis, Adult sb4 - Managing Your Hypertension sb4 Forms: - Patient Portal Instructions sb4 - Leadership Thank You Letter sb4 Prescriptions: - Flagyl 500 mg Oral Tablet - take 1 tablet ORAL route every 12 hours for 7 days; 14 tablet; Refills: 0, sb4 Product Selection Permitted - Protonix 40 mg Oral Tablet - take 1 tablet ORAL route once daily; 30 tablet; Refills: 0, Product Selection sb4 Permitted - ondansetron 8 mg Oral Tablet,disintegrating - take 1 tablet ORAL route every 8 hours; 10 tablet; Refills: 0, Product sb4 Selection Permitted Signatures: Dispatcher [employer] EDMS Rachel Rojas Lynsay RN RN ll1 Nanda Goodrich PA-C PAMarycarmen [id number] Bertha Cote RN RN cm10 Corrections: (The following items were deleted from the chart) 09:58 09:58 BASIC METABOLIC PANEL+C.LAB.BRZ ordered. EDMS EDMS 09:58 09:58 CBC+H.LAB.BRZ ordered. EDMS EDMS 09:58 09:58 HEPATIC FUNCTION+C.LAB.BRZ ordered. EDMS EDMS 09:58 09:58 MAGNESIUM+C.LAB.BRZ ordered. EDMS EDMS 09:58 09:58 PROBNP+C.LAB.BRZ ordered. EDMS EDMS 09:58 09:58 PROTIME (+INR)+COAG.LAB.BRZ ordered. EDMS EDMS 09:58 09:58 Troponin High Sensitivity+C.LAB.BRZ ordered. EDMS EDMS 09:58 09:58 LIPASE+C.LAB.BRZ ordered. EDMS EDMS 10:19 10:03 Patient states that he has been sober for the past few months headaches, nausea, sb4 upper abdominal pain, and intermittently swollen axillary lymph nodes. States that he saw his PCP, had blood work done that was nondiagnostic. Has been taking Motrin as needed for his symptoms. States that when he gets nauseous and throws up, his blood pressure gets very high. He states that it was 180/120 at work. He does not have a diagnosis of hypertension nor does he take any medications for it. He does state that he recently started smoking cigarettes again because of the stress that this is causing him. He reports a slight headache denies any dizziness or blurry vision. Does not report any chest pain or shortness of breath. sb4
--- NOTE | 2024-05-17 12:05 | ER ---
Nurse's Notes [facility] Name: Flakito Claudio Age: 43 yrs Sex: Male : 1980 Arrival Date: 05/17/2024 Time: 09:45 Bed 14 Private MD: Diagnosis: Essential (primary) hypertension;Enteritis Presentation: 05/17 09:51 Chief complaint: Patient states: N/V started at work. BP was 187/122 [place]. States BP has ll1 been elevated for 1 week. Coronavirus screen: Client denies travel out of the [place] in the last 14 days. At this time, the client does not indicate any symptoms associated with coronavirus-19. Ebola Screen: Patient denies travel to an Ebola-affected area in the 21 days before illness onset. Initial Sepsis Screen: Does the patient meet any 2 criteria? No. Patient's initial sepsis screen is negative. Does the patient have a suspected source of infection? No. Patient's initial sepsis screen is negative. Risk Assessment: Do you want to hurt yourself or someone else? Patient reports no desire to harm self or others. Onset of symptoms was May 10, 2024. 09:51 Method Of Arrival: Ambulatory ll1 09:51 Acuity: SUJATHA 2 ll1 Triage Assessment: 09:52 General: Appears uncomfortable, Behavior is cooperative, appropriate for age, anxious. ll1 General: Reports fatigue for elevated BP. Pain:. Neuro: Reports headache elevated BP. GI: Reports nausea, vomiting. Historical: - Allergies: 09:49 No Known Allergies; ll1 - PMHx: 09:49 Bipolar disorder; Hypertension; intussusception; ll1 - PSHx: 09:53 Cholecystectomy; ll1 - Immunization history:: Adult Immunizations up to date. - Infectious Disease History:: Denies. - Social history:: Smoking status: Patient reports the use of cigarette tobacco products, smokes one-half pack cigarettes per day, Reported history of juuling and/or vaping. Screenin:21 [facility] ED Fall Risk Assessment (Adult) History of falling in the last 3 months, cm10 including since admission No falls in past 3 months (0 pts) Confusion or Disorientation No (0 pts) Intoxicated or Sedated No (0 pts) Impaired Gait No (0 pts) Mobility Assist Device Used No (0 pt) Altered Elimination No (0 pt) Score/Fall Risk Level 0 - 2 = Low Risk Oriented to surroundings, Maintained a safe environment, Provided non-skid footwear. Abuse screen: Denies threats or abuse. Denies injuries from another. Nutritional screening: No deficits noted. Tuberculosis screening: No symptoms or risk factors identified. Assessment: 10:22 General: Appears in no apparent distress. comfortable, Behavior is calm, cooperative. cm10 Pain: Complains of pain in abdomen Pain currently is 3 out of 10 on a pain scale. Neuro: No deficits noted. Level of Consciousness is awake, alert, obeys commands, Oriented to person, place, time, situation, Appropriate for age. Cardiovascular: No deficits noted. Heart tones present Patient's skin is warm and dry. Rhythm is regular. Respiratory: No deficits noted. Airway is patent Respiratory effort is even, unlabored, Respiratory pattern is regular, symmetrical, Breath sounds are clear bilaterally. GI: No deficits noted. Bowel sounds present X 4 quads. Reports upper abdominal pain, epigastric pain, nausea. Derm: No deficits noted. Skin is healthy with good turgor. Musculoskeletal: No deficits noted. Range of motion: intact in all extremities. 12:03 Reassessment: Patient appears in no apparent distress at this time. No changes from cm10 previously documented assessment. Patient and/or family updated on plan of care and expected duration. Pain level reassessed. Patient is alert, oriented x 3, equal unlabored respirations, skin warm/dry/pink. Patient states feeling better. Patient states symptoms have improved. Vital Signs: 09:51 BP 164 / 121; Pulse 82; Resp 17; Temp 97.1; Pulse Ox 99% ; Height 5 ft. 3 in. ; Pain ll1 3/10; 10:17 BP 147 / 107; Pulse 71; Resp 16; Pulse Ox 99% ; cm10 11:30 BP 144 / 96; Pulse 58; Resp 16; Pulse Ox 97% on R/A; cm10 09:51 Pain Scale: Adult ll1 ED Course: 09:48 Patient arrived in ED. mg5 09:48 [facility] sb4 09:48 Jeyson Ruby MD is Attending Physician. sb4 09:48 Arm band placed on. ll1 09:52 Triage completed. ll1 09:55 Patient placed in an exam room, on a stretcher. ll1 10:04 Bertha Cote, RN is Primary Nurse. cm10 10:07 Initial lab(s) drawn, by me, sent to lab. Inserted saline lock: 20 gauge in right mb9 antecubital area, using aseptic technique. Blood collected. Flushed with 10 mL NS. 10:11 UAM Sent. mb9 10:11 UDS Sent. mb9 10:11 Lipase Sent. mb9 10:11 Troponin HS Sent. mb9 10:11 PT-INR Sent. mb9 10:11 NT PRO-BNP Sent. mb9 10:11 Basic Metabolic Panel Sent. mb9 10:11 CBC with Diff Sent. mb9 10:11 LFT's Sent. mb9 10:11 Magnesium Sent. mb9 10:21 Patient has correct armband on for positive identification. Bed in low position. Call cm10 light in reach. Side rails up X2. Provided Education on: ER process and procedures.. Client placed on continuous cardiac and pulse oximetry monitoring. NIBP monitoring applied. patient monitor on. 10:21 EKG done, by ED staff. rs6 11:03 CT Abd/Pelvis - IV Contrast Only In Process Unspecified. EDMS 12:04 Aayush Mace MD is Referral Physician. sb4 12:16 No provider procedures requiring assistance completed. IV discontinued, intact, cm10 bleeding controlled, No redness/swelling at site. Pressure dressing applied. Administered Medications: 10:17 Drug: Ondansetron IVP 4 mg IVP once; over 2 minutes Route: IVP; Site: right antecubital;cm10 10:45 Follow up: Response: No adverse reaction cm10 10:17 Drug: Famotidine IVP 20 mg IVP once; dilute with 10 mL 0.9% NaCl; give over 2 minutes cm10 Route: IVP; Site: right antecubital; 10:45 Follow up: Response: No adverse reaction cm10 Medication: 10:21 VIS not applicable for this client. cm10 Outcome: 12:05 Discharge ordered by . sb4 12:16 Discharged to home ambulatory, cm10 12:16 Condition: good 12:16 Discharge instructions given to patient, Instructed on discharge instructions, follow up and referral plans. medication usage, Demonstrated understanding of instructions, follow-up care, medications, Prescriptions given X 3, 12:16 Patient left the ED. cm10 Signatures: Dispatcher [employer] EDAngy Estrada RN RN ll1 Nanda Goodrich PA-C PAMarycarmen [id number] Jonelle Kaplan RN RN mb9 Bertha Cote RN RN cm10 Megha Santana5 Peter Henning rs6 Corrections: (The following items were deleted from the chart) 09:52 09:51 Chief complaint: Patient states: N/V started at work. BP was 187/122 [place]. ll1 ll1 09:56 09:51 BP 164 / 121; Pulse 82bpm; Resp 17bpm; Pulse Ox 99%; Temp 97.1F; ll1 ll1
[2024-05-17 14:35] VITALS: BP 144/96; TEMP 97.1; O2SAT 97
--- NOTE | 2024-05-18 12:54 | EKG ---
Test Date: 2024-05-17 Test Time: 10:10:01 Solution Engineer: LU MEASUREMENT RESULTS: Intervals: Rate: 64 PA: 152 QRSD: 90 QT: 404 QTc: 416 [place]: P: 51 PA: 152 QRS: 50 T: 57 INTERPRETIVE STATEMENTS: Normal sinus rhythm Normal ECG Compared to ECG 07/10/2023 12:03:56 No significant changes Electronically Signed On 05-18-24 12:50:25 CDT by Des Morrow
== END 2024-05-17 12:16 | disposition home or self-care (01) ==
LOC: ER 09:45
DX: I10 Essential (primary) hypertension (principal); K52.9 Noninfective gastroenteritis and colitis, unspecified
CPT/HCPCS: 36415; 74177; 80048; 80076; 80307; 81001; 83690; 83735; 83880; 84484; 85025; 85610; 93005; 96374; 96375; 99285; J2405; Q9967

== ENCOUNTER 2024-08-30 19:31 | Emergency (ER) | payer OTHER, SELFPAY ==
--- OUTSIDE RECORDS SUMMARY | 2024-08-30 19:35 | XMS REPORT | Continuity of Care Document ---
Author Name Unknown Address [address] [facility] [address] [place] [address] [facility] thconnect Address [address] [facility] [address] [place] [address] Care Team Providers Care Life Teacher Name Role Phone Zulma Rausch Primary Care Physician [phone] ARETHA KLINE Attending Clinician Unavailable Aretha Kline MD Attending Clinician [phone] River Pabon MD Attending Clinician [phone] Doctor Unassigned, [place] Attending Clinician U Wicho Pedro DO Attending Clinician [phone] WICHO STEVENS Attending Clinician Unavailable Mayte Roberson Attending Clinician [phone] ARETHA KLINE Admitting Clinician Unavailable Problems Condition Name Condition Details Condition Category Status Onset Date Resolution Date Last Treatment Date Treating Clinician Comments Source No known active problems No known active problems Disease [facility] Allergies, Adverse Reactions, Alerts Allergy Name Allergy Type Status Severity Reaction(s) Onset Date Inactive Date Treating Clinician Comments Source NO KNOWN ALLERGIE S Drug Class Active [facility] Social History Social Habit Start Date Stop Date Quantity Comments Source Exposure to SARS-CoV-2 (event) 2022-05-16 00:00:00 2022-05-26 03:34:00 Not sure [facility] Sex Assigned At 1980 00:00:00 1980 00:00:00 [facility] Smoking Status Start Date Stop Date Source Tobacco smoking consumption unknown [facility] Medications Ordered Medication Name Filled Medication Name Start Date Stop Date Current Medication? Ordering Clinician Indication Dosage Frequency Signature (SIG) Comments Components Source ondansetron 8 mg disintegrat ing tablet 2023-07 00:00: 00 Yes 1mg Nam Fine ibuprofen 800 mg tablet 2023-07 00:00: 00 Yes 1mg Nam Fine triamcinolo ne acetonide 0.1 % topical cream 03-24 00:00: 00 Yes 1% Nam Fine prednisone 20 mg tablet 03-24 00:00: 00 Yes 1mg Nam Fine TAKE 1 TABLET BY MOUTH EVERYDAY AT BEDTIME 08-19 00:00: 00 Yes 100 Nam Fine TAKE 1 TABLET DAILY. 08-19 00:00: 00 Yes 10 Nam Fine TAKE 1 TABLET DAILY. 2022-07 00:00: 00 10-03 00:00 :00 No 100 Nam Fine TAKE 1 TABLET AT BEDTIME. 2022-07 00:00: 00 10-03 00:00 :00 No 100 Nam Fine TAKE 1 TABLET DAILY. 2022-07 00:00: 00 10-03 00:00 :00 No 10 Nam Fine TAKE 1 TABLET DAILY. 2022-07 00:00: 00 10-03 00:00 :00 No 10 Nam Fine TAKE 2 TABLETS ON DAY 1 THEN TAKE 1 TABLET A DAY FOR 4 DAYS. 2022-07 00:00: 00 10-03 00:00 :00 No 250 Nam Fine TAKE 5 ML EVERY 4 TO 6 HOURS NEEDED. 2022-07 00:00: 00 10-03 00:00 :00 No [id number] Nam Fine TAKE 1 TABLET BY MOUTH EVERY DAY 2022-07 00:00: 00 Yes Nam Fine TAKE 1 TABLET BY MOUTH EVERY 12 HOURS 03-04 00:00: 00 Yes Nam Fine TAKE 1 TABLET BY MOUTH EVERY 12 HOURS NEEDED FOR PAIN 03-04 00:00: 00 Yes Nam Fine TAKE 1 TABLET BY MOUTH EVERY 8 HOURS 03-04 00:00: 00 Yes Nam Fine iopamidol (ISOVUE 370-500 mL) injection 100 mL 2021-07 11:30: 00 05-26 10:33 :00 No [id number] 100mL 100 mL, Intravenou s, ONCE, 1 dose, On 05/26/22 at 0630, Routine [facility] traMADoL (ULTRAM) 50 mg tablet 2021-07 00:00: 00 Yes [id number] 50mg Take 1 tablet by mouth every 6 (six) hours as needed for Pain (scale 7-10). Indication s: acute pain [facility] ondansetron (ZOFRAN) 4 mg tablet 2021-07 00:00: 00 Yes [id number] 4mg Take 1 tablet by mouth every 8 (eight) hours as needed for Nausea and Vomiting (N/V). [facility] TAKE ONE (1) CAPSULE(S) BY MOUTH THREE TIMES A DAY FOR 7 DAYS. 2021-07 00:00: 00 Yes Nam Fine TAKE ONE (1) CAPSULE(S) BY MOUTH THREE TIMES A DAY FOR 7 DAYS. 2021-07 00:00: 00 No 1 po q hs 03-27 00:00: 00 Yes Nma Fine 1 po q hs 03-27 00:00: 00 No 1 po @ hs prn 03-26 00:00: [...] 0 00:00: 00 05-09 04:59 :00 No [id number] 500mg Take 1 capsule by mouth 3 (three) times daily for 7 days. [facility] dexamethaso ne (DECADRON PHOSPHATE) injection 10 mg 03-11 16:30: 00 03-11 15:26 :00 No 10mg 10 mg, Intramuscu lar, ONCE, 1 dose, 03/11/21 at 1130, STAT [facility] predniSONE 20 mg tablet 03-11 00:00: 00 Yes [id number] Take 3 pills daily for the first 7 days, 2 pills daily for the next 7 days, then 1 pill daily for the next 7 days [facility] Vital Signs Vital Name Observation Time Observation Value Comments S ourdiana Systolic blood pressure 2022-05-26 11:00:00 122 mm[Hg] [facility] Diastolic blood pressure 2022-05-26 11:00:00 89 mm[Hg] [facility] Heart rate 2022-05-26 11:00:00 66 /min [facility] Respiratory rate 2022-05-26 11:00:00 19 /min [facility] Oxygen saturation in Arterial blood by Pulse oximetry 2022-05-26 11:00:00 98 /min [facility] Body temperature 2022-05-26 08:36:00 36.89 Archana [facility] Body height 2022-05-26 08:36:00 160 cm [facility] Body weight 2022-05-26 08:36:00 86.183 kg [facility] BMI 2022-05-26 08:36:00 33.66 kg/m2 [facility] Systolic blood pressure 2021-05-01 14:38:00 150 mm[Hg] [facility] Diastolic blood pressure 2021-05-01 14:38:00 93 mm[Hg] [facility] Heart rate 2021-05-01 14:38:00 78 /min [facility] Body temperature 2021-05-01 14:38:00 37 Archana [facility] Respiratory rate 2021-05-01 14:38:00 20 /min [facility] Body weight 2021-05-01 14:38:00 84.823 kg [facility] Oxygen saturation in Arterial blood by Pulse oximetry 2021-05-01 14:38:00 99 /min [place] [facility] Systolic blood pressure 2021-03-11 15:12:00 137 mm[Hg] [place] [facility] Diastolic blood pressure 2021-03-11 15:12:00 80 mm[Hg] [facility] Heart rate 2021-03-11 15:12:00 69 /min [facility] Body temperature 2021-03-11 15:12:00 36.72 Archana [facility] Respiratory rate 2021-03-11 15:12:00 20 /min [facility] Body weight 2021-03-11 15:12:00 87.544 kg [facility] Oxygen saturation in Arterial blood by Pulse oximetry 2021-03-11 15:12:00 99 /min [facility] BP Systolic 2024-08-23 10:59:00 152 mm[Hg] Step hen F Babatunde BP Diastolic 2024-08-23 10:59:00 97 mm[Hg] Rafy phen F Babatunde Weight Measured 2024-08-23 10:59:00 186.00 pounds Nam F Babatunde Height Measured 2024-08-23 10:59:00 63.00 inches Nam F Babatunde Body Temperature 2024-08-23 10:59:00 99.00 degrees Nam F Babatunde Heart Rate 2024-08-23 10:59:00 75.00 /min Cristina en F Babatunde Respiratory Rate 2024-08-23 10:59:00 18.00 /min Nam F Babatunde BP Systolic 2024-04-30 09:03:00 160 mm[Hg] Step hen F Babatunde BP Diastolic 2024-04-30 09:03:00 101 mm[Hg] Rafy [...] Body Temperature 2022-03-20 16:16:00 98.20 degrees Nam F Babatunde Heart Rate 2022-03-20 16:16:00 62.00 /min Cristina en F Babatunde Respiratory Rate 2022-03-20 16:16:00 18.00 /min Nam F Babatunde BP Systolic 2019-01-26 12:07:00 143 mm[Hg] Step hen F Babatunde BP Diastolic 2019-01-26 12:07:00 102 mm[Hg] Rafy Fine Weight Measured 2019-01-26 12:07:00 183.40 pounds Nam Fine Height Measured 2019-01-26 12:07:00 63.00 inches Nam Fine Body Temperature 2019-01-26 12:07:00 97.70 degrees Nam Fine Heart Rate 2019-01-26 12:07:00 75.00 /min Cristina Fine Respiratory Rate 2019-01-26 12:07:00 Nam Fine Procedures Procedure Date / Time Performed Performing Clinician Source CT ABDOMEN PELVIS W CONTRAST 2022-05-26 10:36:00 Aretha Kline [facility] URINALYSIS 2022-05-26 10:17:00 Aretha Kline [facility] URINE DRUG (IMMUNOASSAY) - COMPREHENSIVE DRUG SCREEN 2022-05-26 10:17:00 Aretha Kline [facility] CBC WITH DIFF 2022-05-26 08:38:00 Aretha Kline [facility] LIPASE 2022-05-26 08:38:00 Aretha Kline [facility] COMP. METABOLIC PANEL (89015) 2022-05-26 08:38:00 Aretha Kline [facility] NON [facility] FACILITY DOCUMENTATION 2021-07-09 06:01:00 Doctor Unassigned, [place] [facility] NOTICE OF PRIVACY PRACTICES 2021-05-01 14:32:24 Doctor Unassigned, [place] [facility] CONSENT/REFUSAL FOR DIAGNOSIS AND TREATMENT 2021-05-01 14:32:06 Doctor Unassigned, [place] [facility] Plan of Care Planned Activity Planned Date Details Comments Source Goal Plan of Care Note [code = 11584-3] Goal Plan of Care Note [code = 14816-5] Goal Plan of Care Note [code = 44217-2] Goal Plan of Care Note [code = 62429-3] Goal Plan of Care Note [code = 87102-5] Goal Plan of Care Note [code = 53508-2] Goal Plan of Care Note [code = 70900-6] Goal Plan of Care Note [code = 01929-5] Goal Plan of Care Note [code = 11866-6] Goal Plan of Care Note [code = 33553-9] Goal Plan of Care Note [code = 69944-9] Goal Plan of Care Note [code = 39380-5] Goal Plan of Care Note [code = 72093-6] Goal Plan of Care Note [code = 04079-4] Encounters Start Date/Time End Date/Time Encounter Type Admission Type Attending [facility] Care Department Encounter ID Source 2024-08-23 10:51:00 2024-08-23 10:51:00 Outpatient [facility] [id number] Nam Alejandra Babatunde 2024-08-23 00:00:00 2024-08-23 00:00:00 Outpatient Visit SFA [id number] Nam Fine 2024-05-06 16:27:35 2024-05-06 16:27:35 Outpatient [facility] [id number] Nam Alejandra Babatunde 2024-04-30 08:55:39 2024-04-30 08:55:39 Outpatient [facility] [id number] Nam Alejandra Babatunde 2024-04-30 00:00:00 2024-04-30 00:00:00 Outpatient Visit S[facility] [id number] Nam Alejandra Babatunde 2024-04-22 14:52:36 2024-04-22 14:52:36 Outpatient [facility] [id number] Nam Alejandra Babatunde 2024-03-30 15:23:50 2024-03-30 15:23:50 Outpatient [facility] [id number] Nam Alejandra Babatunde 2024-03-24 08:02:42 2024-03-24 08:02:42 Outpatient [facility] [id number] Nma Alejandra Babatunde 2024-03-24 00:00:00 2024-03-24 00:00:00 Outpatient Visit [facility]FA [id number] Nam Alejandra Babatunde 2024-03-23 14:37:04 2024-03-23 14:37:04 Outpatient [facility] [id number] Nam Fine 2023-09-09 13:57:26 2023-09-09 13:57:26 Outpatient [facility] [id number] Nam Fine 2023-07-23 16:42:31 2023-07-23 16:42:31 Outpatient [facility] [id number] Nam Fine 2022-05-26 03:32:00 2022-05-26 06:21:00 Emergency X ARETHA KLINE [facility] ERT [id number] [facility] 2022-05-26 03:32:00 2022-05-26 06:21:00 Emergency Aretha Kline [facility] 1..840.114 350.1.13.10 4.2.7.2.686 [id number] [facility] 2022-05-07 13:42:49 2022-05-07 13:42:[address] [facility] [id number] Nam Fine 2022-05-07 00:00:00 2022-05-07 00:00:00 Outpatient Visit [id number] 2022-03-20 00:00:00 2022-03-20 00:00:00 Outpatient Visit [id number] 2021-07-09 14:01:00 2021-07-09 23:59:00 Hospital Encounter River Pabon [facility] 1..840.114 350.1.13.10 4.2.7.2.686 [id number] [facility] 2021-07-09 00:00:00 2021-07-09 00:00:00 Orders Only Doctor Unassigned, [place] [facility] 1.2840.114 350.1.13.10 [id number] [id number] [facility] 2021-05-01 09:41:00 2021-05-01 10:48:00 Emergency Wicho Stevens [facility] [id number] 350.1.13.10 4.2.7.2.686 [id number] [facility] 2021-05-01 09:32:00 2021-05-01 09:32:00 Emergency X WICHO STEVENS [facility] ERT [id number] [facility] 2021-03-28 00:00:00 2021-03-28 00:00:00 Refill [facility] [address] 1.2840.114 350.1.13.10 4.2.7.2.686 [id number] [facility] 2021-03-11 10:13:00 2021-03-11 10:42:00 Emergency [facility] 1.2.840.114 350.1.13.10 4.2.7.2.686 [id number] [facility] 2021-03-11 10:07:00 2021-03-11 10:07:00 Emergency X [facility] ERT [id number] [facility] Results Test Description Test Time Test Comments Results Result Co mments Source HEPATITIS PANEL, [id number] 04:14:21* Test Item Value Reference Range Interpretation Comme nts HEPATITIS A IgM (test code = 70349) NON-REACTIVE NON-REACTIVE HEPATITIS B CORE IgM (test code = 4644) NON-REACTIVE NON-REACTIVE HEPATITIS B SURF AG (test code = 2739) NON-REACTIVE NON-REACTIVE HEPATITIS C ANTIBODY (test code = 4675) NON-REACTIVE NON-REACTIVE INTERPRETATION HEPATITIS A: (test code = 2552) (NOTE) Hepatitis A sero logy shows no evidence of acute hepatitis A. INTERPRETATION HEPATITIS B: (test code = 94981) (NOTE) Hepatitis B sero logy shows no evidence of acute hepatitis B andno indication of exposure to hepatitis B virus in the previous yusef eight months. INTERPRETATION HEPATITIS C: (test code = 61541) (NOTE) Hepatitis C sero logy shows no evidence of exposure to hepatitisC virus at this time. It can take up to 12 months after exposure tothe hepatitis C virus for antibodies to become detectable in the blood in certain patients. UNLESS OTHERWISE INDICATED, ALL TESTING PERFORMED AT [facility] [address] [place] [address] CUT PRESS OPERATOR: SHIRA WISE M.D. [place] NUMBER [id number] [facility] [place]. [id number] HIV 1/2 4TH GEN, RFLX [id number] 00:00:00* Test Item Value Reference Range Interpretation Comme nts HIV 1/2 4TH GEN, RFLX CONF ( test code = 3514) NON-REACTIVE aNm Alejandra AustinACUTE HEPATITIS [id number] 00:00:00* Test Item Value Reference Range Interpretation Comme nts HEPATITIS A IgM (test code = 48486) NON-REACTIVE HEPATITIS B CORE IgM (test c ode = 4644) NON-REACTIVE HEPATITIS B SURF AG (test co de = 2739) NON-REACTIVE HEPATITIS C ANTIBODY (test c ode = 4675) NON-REACTIVE INTERPRETATION HEPATITIS A: (test code = 2552) (NOTE) INTERPRETATION HEPATITIS B: (test code = 86441) (NOTE) INTERPRETATION HEPATITIS C: (test code = 72180) (NOTE) Nam FineHIV 1/2 4TH GEN, RFLX [id number] 00:00:00* Test Item Value Reference Range Interpretation Comme nts HIV 1/2 4TH GEN, RFLX CONF ( test code = 3514) NON-REACTIVE Nam FineACUTE HEPATITIS [id number] 00:00:00* Test Item Value Reference Range Interpretation Comme nts HEPATITIS A IgM (test code = 93141) NON-REACTIVE HEPATITIS B CORE IgM (test c ode = 4644) NON-REACTIVE HEPATITIS B SURF AG (test co de = 2739) NON-REACTIVE HEPATITIS C ANTIBODY (test c ode = 4675) NON-REACTIVE INTERPRETATION HEPATITIS A: (test code = 2552) (NOTE) INTERPRETATION HEPATITIS B: (test code = 68345) (NOTE) INTERPRETATION HEPATITIS C: (test code = 61323) (NOTE) Nam FineANA REFLEX AUTOIMMUNE AB [id number] 02:54:59* Test Item Value Reference Range Interpretation Comme nts ANTI-NUCLEAR ANTIBODIES (test code = 3506) NEGATIVE NEGATIVE Methodology is I ndirect Immunofluorescent Assay (IFA) with a titering system using [id number] cells (Hep2 cells transfected with SS-A/Ro). TRE PATTERN (REPORTED TITER) (test code = 46695) SEE BELOW HOMOGENEOUS (test code = 08809) NEGATIVE TITER NEGATIVE SPECKLED (test code = 920231) NEGATIVE TITER NEGATIVE DENSE FINE SPECKLED (test code = 15724) NEGATIVE TITER NEGATIVE CENTROMERE (test code = 343040) NEGATIVE TITER NEGATIVE COARSE SPECKLED (test code = 649569) NEGATIVE TITER NEGATIVE DISCRETE NUCLEAR DOTS (test code = 419955) NEGATIVE TITER NEGATIVE NUCLEOLAR (test code = 027673) NEGATIVE TITER NEGATIVE NUCLEAR MEMBRANE (test code = 203984) NEGATIVE TITER NEGATIVE CYTO. RETICULAR (ADOLFO) (test code = 353496) NEGATIVE NEGATIVE COMMENTS (test code = 603389) NONE METHOD (test code = 80969) (NOTE) TESTING PERFORME D BY [employer] IFA PLATFORM.THE METHOD INCLUDES A SCREEN THRESHOLD OF 1:80, DIGITIZED AND COMPUTER ALGORITHM-ASSISTED INTERPRETATION OF TITERS AND DIGITAL PATTERNS, AND HEp-2 CELL LINE SUBSTRATE. ADDITIONAL UNUSUAL PATTERNS WILL BE GIVEN COMMENTS.FOR MORE INFORMATION, SEE [email or web address] UNLESS OTHERWISE INDICATED, ALL TESTING PERFORMED AT [facility] [address] [place] [address] CUT PRESS OPERATOR: SHIRA WISE M.D. CLIA NUMBER [id number] [facility] [place]. [id number] TRE REFLEX AUTOIMMUNE AB [id number] 00:00:00* Test Item Value Reference Range Interpretation Comme nts ANTI-NUCLEAR ANTIBODIES (star t code = 3506) NEGATIVE TRE PATTERN (REPORTED TITER) (test code = 07599) SEE BELOW HOMOGENEOUS (test code = 45531) NEGATIVE TITER SPECKLED (test code = 232318) NEGATIVE TITER DENSE FINE SPECKLED (test co de = 32361) NEGATIVE TITER CENTROMERE (test code = 875363) NEGATIVE TITER COARSE SPECKLED (test code = 307317) NEGATIVE TITER DISCRETE NUCLEAR DOTS (test code = 535810) NEGATIVE TITER NUCLEOLAR (test code = 888055) NEGATIVE TITER NUCLEAR MEMBRANE (test code = 203904) NEGATIVE TITER CYTO. RETICULAR (ADOLFO) (test code = 400916) NEGATIVE COMMENTS (test code = 361375) NONE METHOD (test code = 13499) (NOTE) Nam Esquivel REFLEX AUTOIMMUNE AB [id number] 00:00:00* Test Item Value Reference Range Interpretation Comme nts ANTI-NUCLEAR ANTIBODIES (star t code = 3506) NEGATIVE TRE PATTERN (REPORTED TITER) (test code = 62103) SEE BELOW HOMOGENEOUS (test code = 99877) NEGATIVE TITER SPECKLED (test code = 718328) NEGATIVE TITER DENSE FINE SPECKLED (test co de = 03801) NEGATIVE TITER CENTROMERE (test code = 638030) NEGATIVE TITER COARSE SPECKLED (test code = 408403) NEGATIVE TITER DISCRETE NUCLEAR DOTS (test code = 536077) NEGATIVE TITER NUCLEOLAR (test code = 089262) NEGATIVE TITER NUCLEAR MEMBRANE (test code = 445991) NEGATIVE TITER CYTO. RETICULAR (ADOLFO) (test code = 435105) NEGATIVE COMMENTS (test code = 670157) NONE METHOD (test code = 76135) (NOTE) Nam FineLIPID [id number] 05:34:40* Test Item Value Reference Range Interpretation [...] code = 2238) 2.58 RATIO <3.55 HEMOGLOBIN [id number] 04:50:13* Test Item Value Reference Range Interpretation Comme nts HEMOGLOBIN A1c (test code = 80715) 5.4 % 4.2-5.6 CBC W/AUTO DIFF WITH [id number] 04:05:29* Test Item Value Reference Range Interpretation [...] 0.00-0.10 ABS NUCLEATED RBCS (test code = 24952) 0.00 K/UL 0.00-0.11 CBC W/AUTO [id number] 00:00:00* Test Item Value Reference Range Interpretation [...] ABS NUCLEATED RBCS (test cod e = 34984) 0.00 K/UL Nam FineHEMOGLOBIN [id number] 00:00:00* Test Item Value Reference Range Interpretation Comme nts HEMOGLOBIN A1c (test code = 42696) 5.4 % Nam FineLIPID [id number] 00:00:00* Test Item Value Reference Range Interpretation Comme nts CHOLESTEROL (test code = 2210) 196 MG/DL TRIGLYCERIDES (test code = 2232) 78 MG/DL HDL CHOLESTEROL (test code = 2220) 50 MG/DL CALC LDL CHOL (test code = 2237) 129 MG/DL RISK RATIO LDL/HDL (test cod e = 2238) 2.58 RATIO Nam FineCBC W/AUTO [id number] 00:00:00* Test Item Value Reference Range Interpretation [...] ABS NUCLEATED RBCS (test cod e = 49211) 0.00 K/UL Nam FineHEMOGLOBIN [id number] 00:00:00* Test Item Value Reference Range Interpretation Comme nts HEMOGLOBIN A1c (test code = 99154) 5.4 % Nam FineLIPID [id number] 00:00:00* Test Item Value Reference Range Interpretation Comme nts CHOLESTEROL (test code = 2210) 196 MG/DL TRIGLYCERIDES (test code = 2232) 78 MG/DL HDL CHOLESTEROL (test code = 2220) 50 MG/DL CALC LDL CHOL (test code = 2237) 129 MG/DL RISK RATIO LDL/HDL (test cod e = 2238) 2.58 RATIO Nam FineComplete Metabolic [id number] 10:05:27* Test Item Value Reference Range Interpretation Comme nts NA (test code = 1109981678) 142 mmol/L 135-145 K (test code = 5697823725) 3.9 mmol/L 3.5-5.0 CL (test code = 0732860923) 105 mmol/L 98-108 CO2 TOTAL (test code = 7047378570) 27 mmol/L 23-31 AGAP (test code = 3512564864) 2-16 BUN (test code = 7180223540) 17 mg/dL 7-23 GLUCOSE (test code = 0489476705) 102 mg/dL 70-110 CREATININE (test code = 6094228470) 0.95 mg/dL 0.60-1.25 TOTAL BILI (test code = 8473956986) 0.9 mg/dL 0.1-1.1 CALCIUM (test code = 0722511598) 9.4 mg/dL 8.6-10.6 T PROTEIN (test code = 2693788413) 6.4 g/dL 6.3-8.2 ALBUMIN (test code = 4058017555) 4.2 g/dL 3.5-5.0 ALK PHOS (test code = 6663037226) 59 U/L 34-122 ALTv (test code = 1742-6) 28 U/L 5-50 AST(SGOT) (test code = 2369472023) 26 U/L 13-40 eGFR (test code = 5466171140) mL/min/1.73m2 RAUL (test code = RAUL) Association of Glomerular Filtration Rate (GFR) and Staging of Kidney Disease* + + +- +| GFR (mL/min/1.73 m2) ?| With Kidney Damage ?| ?Without Kidney Damage+ ------+ ----+ ------+| ?>90 ?| ?Stage one ?| ? Normal ?+ -+ + -+| ?60-89 ?| ?Stage two ?| ? Decreased GFR ? + + +- +| ?30-59 ?| ?Stage three ?| ? Stage three ? + + +- +| ?15-29 ?| ?Stage four ? | ? Stage four ?+ -+ + -+| ?<15 (or dialysis) ? ?| ?Stage five ? | ? Stage five ?+ -+ + -+ *Each stage assumes the associated GFR level [...] or urine or abnormalities in imaging tests). [facility] [id number] 10:05:07* Test Item Value Reference Range Interpretation Comme nts LIPASE (test code = 6594142881) 233 U/L 0-220 H Lab Interpretation (test cod e = 71449-7) Abnormal [facility] [id number] 09:26:05* Test Item Value Reference Range Interpretation Comme nts WBC (test code = 6690-2) See_Comment [Automated [employer]] The system which generated this result transmitted reference range: 4.20 - 10.70 10*3/?L. The reference range was not used to interpret this result as normal/abnormal. RBC (test code = 789-8) See_Comment [[employer]] The system which generated this result transmitted [...] g/dL 31.2-35.0 H RDW-SD (test code = 75678-3) 40.9 fL 38.5-51.6 RDW-CV (test code = 788-0) 12.4 % 12.1-15.4 PLT (test code = 777-3) See_Comment [Automated messa ge] The system which generated this result transmitted reference range: 150 - 328 10*3/?L. The reference range was not used to interpret this result as normal/abnormal. MPV (test code = 45487-8) 10.2 fL 9.8-13.0 NRBC/100 WBC (test code = 7441432255) See_Comment [Automated [employer]] The system which generated this result transmitted reference range: 0.0 - 10.0 /100 WBCs. The reference range was not used to interpret this result as normal/abnormal. NRBC x10^3 (test code = 4839748034) See_Comment [Automated messa ge] The system which generated this result transmitted reference range: 10*3/?L. The reference range was not used to interpret this result as normal/abnormal. GRAN MAT (NEUT) % (test code = 770-8) 38.4 % IMM GRAN % (test code = 7783597106) 0.30 % LYMPH % (test code = 736-9) 50.3 % MONO % (test code = 5905-5) 9.2 % EOS % (test code = 713-8) 1.5 % BASO % (test code = 706-2) 0.3 % GRAN MAT x10^3(ANC) (test code = 2871300185) 3.00 10*3/uL 1.99-6.95 IMM GRAN x10^3 (test code = 5442542338) 0.00-0.06 LYMPH x10^3 (test code = 731-0) 3.92 10*3/uL 1.09-3.23 H MONO x10^3 (test code = 742-7) 0.72 10*3/uL 0.36-1.02 EOS x10^3 (test code = 711-2) 0.12 10*3/uL 0.06-0.53 BASO x10^3 (test code = 704-7) 0.01-0.09 Lab Interpretation (test code = 65871-5) [id number]* Test Item Value Reference Range Interpretation [...] SPECIMENS. FOR MOREINFORMATION, SEE CLIENT ANNOUNCEMENT AT [email or web address] LDL/HDL (test code = 2238) 2.84 RATIO <3.55 COMPREHENSIVE METABOLIC [id number] 03:35:41* Test Item Value Reference Range Interpretation Comme nts GLUCOSE (test code = 221) 92 MG/DL 70-99 BUN (test code = 220) 13 MG/DL 6-20 CREATININE (test code = 2214) 1.05 MG/DL 0.80-1.40 eGFR (2020 CKD-EPI) (test code = 85656) 93 ML/MIN/1.73 >60 CALC BUN/CREAT (test code = 2235) 12 RATIO 6-28 SODIUM (test code = 223) 143 MEQ/L 133-146 POTASSIUM (test code = 2228) 4.2 MEQ/L 3.5-5.4 CHLORIDE (test code = 2215) 103 MEQ/L 95-107 CARBON DIOXIDE (test code = 2206) 29 MEQ/L 19-31 CALCIUM (test code = 220) 9.7 MG/DL 8.5-10.5 PROTEIN, TOTAL (test code = 222) 7.1 G/DL 6.1-8.3 ALBUMIN (test code = 2201) 4.8 G/DL 3.5-5.2 CALC GLOBULIN (test code = 2240) 2.3 G/DL 1.9-3.7 CALC A/G RATIO (test code = 2234) 2.1 RATIO 1.0-2.6 BILIRUBIN, TOTAL (test code = 2207) 0.6 MG/DL See_Comment [Automated me ssage] The system which generated this result transmitted reference range: <=1.2. The reference range was not used to interpret this result as normal/abnormal. ALKALINE PHOSPHATASE (test code = 2204) 66 U/L 40-117 AST (test code = 2218) 19 U/L 9-50 ALT (test code = 2219) 20 U/L 5-50 UNLESS OTHERWISE INDICATED, ALL TESTING PERFORMED [facility] [address] [place] [id number] CUT PRESS OPERATOR: MELVI PORTER M.D. [place] NUMBER [id number] [facility] [place]. [id number] LIPID [id number] 00:00:00* Test Item Value Reference Range Interpretation Comme nts CHOLESTEROL (test code = 2210) 205 MG/DL TRIGLYCERIDES (test code = 2232) 187 MG/DL HDL CHOLESTEROL (test code = 2220) 45 MG/DL CALC LDL CHOL (test code = 2237) 128 MG/DL RISK RATIO LDL/HDL (test cod e = 2238) 2.84 RATIO Nam FineCOMPREHENSIVE METABOLIC [id number] 00:00:00* Test Item Value Reference Range Interpretation Comme nts GLUCOSE (test code = 2217) 92 MG/DL BUN (test code = 2208) 13 MG/DL CREATININE (test code = 2214) 1.05 MG/DL eGFR (2020 CKD-EPI) (test co de = 28626) 93 ML/MIN/1.73 CALC BUN/CREAT (test code = [...] (test code = 2219) 20 U/L Nam FineLIPID [id number] 00:00:00* Test Item Value Reference Range Interpretation Comme nts CHOLESTEROL (test code = 2210) 205 MG/DL TRIGLYCERIDES (test code = 2232) 187 MG/DL HDL CHOLESTEROL (test code = 2220) 45 MG/DL CALC LDL CHOL (test code = 2237) 128 MG/DL RISK RATIO LDL/HDL (test cod e = 2238) 2.84 RATIO Nam FineCOMPREHENSIVE METABOLIC [id number] 00:00:00* Test Item Value Reference Range Interpretation Comme nts GLUCOSE (test code = 2217) 92 MG/DL BUN (test code = 2208) 13 MG/DL CREATININE (test code = 2214) 1.05 MG/DL eGFR (2020 CKD-EPI) (test co de = 25185) 93 ML/MIN/1.73 CALC BUN/CREAT (test code = [...] (test code = 2219) 20 U/L Nam Alejandra AustinLIPID [id number] 00:00:00* Test Item Value Reference Range Interpretation Comme nts CHOLESTEROL (test code = 2210) 205 MG/DL TRIGLYCERIDES (test code = 2232) 187 MG/DL HDL CHOLESTEROL (test code = 2220) 45 MG/DL CALC LDL CHOL (test code = 2237) 128 MG/DL RISK RATIO LDL/HDL (test cod e = 2238) 2.84 RATIO Nam FineCOMPREHENSIVE METABOLIC [id number] 00:00:00* Test Item Value Reference Range Interpretation Comme nts GLUCOSE (test code = 2217) 92 MG/DL BUN (test code = 2208) 13 MG/DL CREATININE (test code = 2214) 1.05 MG/DL eGFR (2020 CKD-EPI) (test co de = 83524) 93 ML/MIN/1.73 CALC BUN/CREAT (test code = [...] (test code = 2219) 20 U/L Nam F AustinLIPID [id number] 00:00:00* Test Item Value Reference Range Interpretation Comme nts CHOLESTEROL (test code = 2210) 205 MG/DL TRIGLYCERIDES (test code = 2232) 187 MG/DL HDL CHOLESTEROL (test code = 2220) 45 MG/DL CALC LDL CHOL (test code = 2237) 128 MG/DL RISK RATIO LDL/HDL (test cod e = 2238) 2.84 RATIO COMPREHENSIVE METABOLIC [id number] 00:00:00* Test Item Value Reference Range Interpretation Comme nts GLUCOSE (test code = 2217) 92 MG/DL BUN (test code = 2208) 13 MG/DL CREATININE (test code = 2214) 1.05 MG/DL eGFR (2020 CKD-EPI) (test co de = 33140) 93 ML/MIN/1.73 CALC BUN/CREAT (test code = [...] Comme nts SARS-CoV-2 INTERPRETATION (test code = 63984) NEGATIVE SOURCE (test code = 81811) NASOPHARYNGEAL Nam F [id number] (COVID-19) by RT-PCR (HIGH RISK)2020-02-05 00:00:00* Test Item Value Reference Range Interpretation Comme nts SARS-CoV-2 INTERPRETATION (test code = 84163) NEGATIVE SOURCE (test code = 47846) NASOPHARYNGEAL Nam F [id number] (COVID-19) by RT-PCR (HIGH RISK)2020-02-05 00:00:00* Test Item Value Reference Range Interpretation Comme nts SARS-CoV-2 INTERPRETATION (test code = 60303) NEGATIVE SOURCE (test code = 23172) NASOPHARYNGEAL Nam F [id number] (COVID-19) by RT-PCR (HIGH RISK)2020-02-05 00:00:00* Test Item Value Reference Range Interpretation Comme nts SARS-CoV-2 INTERPRETATION (test code = 78400) NEGATIVE SOURCE (test code = 22360) NASOPHARYNGEAL SARS-CoV-2 (COVID-19) by RT-PCR (HIGH RISK)2020-02-05 00:00:00* Test Item Value Reference Range Interpretation Comme nts SARS-CoV-2 INTERPRETATION (test code = 67032) NEGATIVE SOURCE (test code = 76116) NASOPHARYNGEAL"
--- NOTE | 2024-08-30 21:53 | RAD REPORT ---
EXAM: Chest Single View HISTORY: CHEST PAIN COMPARISON: None. FINDINGS: LUNGS/PLEURA: The lungs are clear. No pleural effusions or pneumothorax. No pulmonary edema. MEDIASTINUM: The mediastinal silhouette is within normal limits. CARDIAC: The cardiac silhouette is within normal limits. UPPER ABDOMEN: No significant abnormality. BONES: No acute abnormality. LINES/TUBES/OTHER: N/A IMPRESSION: No evidence of acute cardiopulmonary disease.
[2024-08-30 23:30] LABS: Absolute Eosinophils 0.2 K/uL (0-0.5); Absolute Lymphocytes (CBC) 2.4 K/uL (0.7-4.9); Absolute Monocytes 0.5 K/uL (0.1-1.3); Absolute Neutrophil 3.5 K/uL (1.8-8.0); Basophils % 0.4 % (0-1.3); Eosinophils % 2.6 % (0-4.4); Hematocrit 43.5 % (39.6-49.0); Hemoglobin 14.7 g/dL (13.6-17.9); Lymphocytes % 36.5 % (15.3-44.8); MCH 31.2 pg (27.0-35.0); MCHC 33.8 g/dL (32.0-36.0); MCV 92.2 fL (80-100); Monocytes % 7.5 % (3.3-12.3); Nucleated Red Blood Cells % 0.1 % (0-0); Platelets 245 thou/uL (152-406); RBC Red Blood Cell Count 4.72 M/uL (4.33-5.43); Red Cell Distribution Width 13.4 % (12.1-15.2)
[2024-08-30 23:33] LABS: PT Prothrombin Time 10.7 SECONDS (9.4-12.5); PTT, Activated Partial Thromb 34.1 SECONDS (24.3-36.9); Protime INR 1.02
[2024-08-30 23:41] LABS: Albumin 3.9 g/dL (3.4-5.0); Albumin/Globulin Ratio 1.1 (1.1-1.8); Anion Gap 10.1 mEq/L (5.0-15.0); Bilirubin Direct 0.2 mg/dL (0-0.2); Bilirubin Indirect, Calculated 0.6 mg/dL (0.2-0.8); Bilirubin Total 0.8 mg/dL (0.2-1.0); Globulin 3.5 g/dL (2.3-3.5); Magnesium 2.4 mg/dL (1.6-2.4); Potassium 3.1 mEq/L (3.5-5.1); Protein, Total 7.4 g/dL (6.4-8.2); Troponin High Sensitivity 7.9 pg/mL (<58.9)
[2024-08-30] MEDS ORDERED: POTASSIUM CL SA 10 MEQ TAB PO ONE (23:54)
--- NOTE | 2024-08-30 23:54 | EDPHYS ---
Physician Documentation [facility] Name: Flakito Claudio Age: 43 yrs Sex: Male : 1980 Arrival Date: 08/30/2024 Time: 19:31 Bed 7 Private MD: ED Physician Cy Uriarte HPI: 08/30 23:16 This 43 yrs old Male presents to ER via Ambulatory with complaints of High Blood kb Pressure. 23:16 Pt is a 43 year old male who presents for hypertension and palpitations that started kb this morning. States he was diagnosed with hypertension and was on lisinopril until about a year ago when he stopped taking it. States the medication never seemed to work and his dr said he didn't really need it so he was taken off of it. Denies headache, chest pain. States he can feel his heart beat. Reports he felt like he was going to pass out while at work. . Historical: - Allergies: 19:51 No Known Allergies; hb - PMHx: 19:51 Bipolar disorder; Hypertension; intussusception; hb - PSHx: 19:51 Cholecystectomy; hb - Immunization history:: Adult Immunizations up to date. - Infectious Disease History:: Denies. - Social history:: Smoking status: Patient reports the use of cigarette tobacco products, smokes one-half pack cigarettes per day. ROS: 23:15 Constitutional: As per HPI kb Exam: 23:15 Constitutional: This is a well developed, well nourished patient who is awake, alert, kb and in no acute distress. Head/Face: Normocephalic, atraumatic. ENT: Moist Mucous membranes Cardiovascular: Regular rate Respiratory: Respirations even and unlabored. No increased work of breathing. Talking in full sentences Skin: Warm, dry with normal turgor. Normal color. MS/ Extremity: Pulses equal, no cyanosis. Neurovascular intact. Full, normal range of motion. Neuro: Awake and alert, GCS 15, oriented to person, place, time, and situation. 23:15 ECG was reviewed by the Attending Physician. kb Vital Signs: 19:50 BP 153 / 104; Pulse 81; Resp 16; Temp 97.5; Pulse Ox 100% on R/A; Weight 83.01 kg; hb Height 5 ft. 4 in. ; Pain 4/10; 23:11 BP 166 / 109; Pulse 71; Resp 16; Temp 97.5; Pulse Ox 98% ; Pain 4/10; bm8 23:46 BP 147 / 97; Pulse 66; Resp 18; Temp 97.5; Pulse Ox 98% ; Pain 0/10; bm8 19:50 Body Mass Index 31.41 (83.01 kg, 162.56 cm) hb 19:50 Pain Scale: Adult hb 23:11 Pain Scale: Adult bm8 23:46 Pain Scale: Adult bm8 [place] Coma Score: 23:11 Eye Response: spontaneous(4). Motor Response: obeys commands(6). Verbal Response: bm8 oriented(5). Total: 15. 23:46 Eye Response: spontaneous(4). Motor Response: obeys commands(6). Verbal Response: bm8 oriented(5). Total: 15. MDM: 19:48 Medical Screening Exam initiated kb 23:15 Differential diagnosis: hypertensive crisis, Malignant HTN. Data reviewed: vital signs, kb nurses notes. 23:53 Counseling: I had a detailed discussion with the patient and/or guardian regarding the kb historical points, exam findings, and any diagnostic results supporting the discharge/admit diagnosis, lab results, radiology results, the need for outpatient follow up, a family practitioner, to return to the emergency department if symptoms worsen or persist or if there are any questions or concerns that arise at home. 08/30 19:54 Order name: Basic Metabolic Panel; Complete Time: 23:48 kb 08/30 19:54 Order name: CBC with Diff; Complete Time: 23:48 kb 08/30 19:54 Order name: Hepatic Function; Complete Time: 23:48 kb 08/30 19:54 Order name: Magnesium; Complete Time: 23:48 kb 08/30 19:54 Order name: Protime (+inr); Complete Time: 23:34 kb 08/30 19:54 Order name: Ptt, Activated; Complete Time: 23:34 kb 08/30 19:54 Order name: Troponin High Sensitivity; Complete Time: 23:48 kb 08/30 19:54 Order name: Chest Single View XRAY; Complete Time: 22:09 kb 08/30 19:54 Order name: Cardiac monitoring; Complete Time: 23:12 kb 08/30 19:54 Order name: EKG - Nurse/Tech; Complete Time: 23:12 kb 08/30 19:54 Order name: IV Saline Lock; Complete Time: 23:12 kb 08/30 19:54 Order name: Labs collected and sent; Complete Time: 23:01 kb 08/30 19:54 Order name: NPO; Complete Time: 23:13 kb 08/30 19:54 Order name: O2 Per Protocol; Complete Time: 23:01 kb 08/30 19:54 Order name: O2 Sat Monitoring; Complete Time: 23:01 kb EC:15 Rate is 65 beats/min. Rhythm is regular. QRS [place] is Normal. MD interval is normal at kb 130 msec. QRS interval is normal at 86 msec. QT interval is normal at 426 msec. Administered Medications: 23:56 Drug: Potassium Chloride PO 40 mEq PO once Route: PO; bm8 23:56 Follow up: Response: Medication Administered at Departure bm8 Disposition Summary: 08/30/24 23:53 Discharge Ordered Notes: Location: Home kb Condition: Stable kb Diagnosis - Essential (primary) hypertension kb Followup: kb - With: Emergency Department - When: As needed - Reason: Worsening of condition Followup: kb - With: Private Physician - When: 2 - 3 days - Reason: Recheck today's complaints, Continuance of care, Re-evaluation by your physician Discharge Instructions: - Discharge Summary Sheet kb - Hypertension, Adult, [id number] kb - How to Take Your Blood Pressure, [id number] kb Forms: - Medication Reconciliation Form kb - Antibiotic Education kb - Prescription Opioid Use kb - Patient Portal Instructions kb - Leadership Thank You Letter kb - Work release form oe Addendum: 09/01/2024 17:32 I was immediately available for consultation during this patient's visit. I did not e c2 personally see the patient or discuss the patient with the LAKEISHA. . Signatures: Dispatcher [employer] [facility] Josey Mcdonnell, INTERNATIONAL LOGISTICS COORDINATOR-C INTERNATIONAL LOGISTICS COORDINATOR-Ckb Jennifer Oneil, RN RN Cy Potts MD MD 2 Dario Ventura RN RN bm8 Corrections: (The following items were deleted from the chart) 08/30 19:54 19:54 Chest Single View+RAD.RAD.BRZ ordered. [facility] 19:54 19:51 Social history: Smoking status: Patient denies any tobacco usage or history of. hbhb
--- NOTE | 2024-08-30 23:54 | ER ---
Nurse's Notes [facility] Name: Flakito Claudio Age: 43 yrs Sex: Male : 1980 Arrival Date: 08/30/2024 Time: 19:31 Bed 7 Private MD: Diagnosis: Essential (primary) hypertension Presentation: 08/30 19:50 Chief complaint: BP today 177/110, 184/128 and felt like he was going to pass out. hb Coronavirus screen: At this time, the client does not indicate any symptoms associated with coronavirus-19. Ebola Screen: No symptoms or risks identified at this time. Initial Sepsis Screen: Does the patient meet any 2 criteria? No. Patient's initial sepsis screen is negative. Does the patient have a suspected source of infection? No. Patient's initial sepsis screen is negative. Risk Assessment: Do you want to hurt yourself or someone else? Patient reports no desire to harm self or others. Onset of symptoms was August 30, 2024. 19:50 Method Of Arrival: Ambulatory hb 19:50 Acuity: SUJATHA 3 hb Historical: - Allergies: 19:51 No Known Allergies; hb - PMHx: 19:51 Bipolar disorder; Hypertension; intussusception; hb - PSHx: 19:51 Cholecystectomy; hb - Immunization history:: Adult Immunizations up to date. - Infectious Disease History:: Denies. - Social history:: Smoking status: Patient reports the use of cigarette tobacco products, smokes one-half pack cigarettes per day. Screenin:11 [facility] ED Fall Risk Assessment (Adult) History of falling in the last 3 months, bm8 including since admission No falls in past 3 months (0 pts) Confusion or Disorientation No (0 pts) Intoxicated or Sedated No (0 pts) Impaired Gait No (0 pts) Mobility Assist Device Used No (0 pt) Altered Elimination No (0 pt) Score/Fall Risk Level 0 - 2 = Low Risk Oriented to surroundings, Maintained a safe environment, Educated pt \T\ family on fall prevention, incl call for assistance when getting out of bed, Assessed \T\ reinforced patient's understanding of fall precautions, Hourly rounding (assess needs \T\ fall precautionary measures) done, Used ambulatory aids as needed (educated on \T\ assisted with), Used gait belt as appropriate. Abuse screen: Denies threats or abuse. Nutritional screening: No deficits noted. Tuberculosis screening: No symptoms or risk factors identified. Assessment: 23:11 Reassessment: Patient appears in no apparent distress at this time. Patient and/or bm8 family updated on plan of care and expected duration. Pain level reassessed. Patient is alert, oriented x 3, equal unlabored respirations, skin warm/dry/pink. General: Appears in no apparent distress. comfortable, Behavior is calm, cooperative, appropriate for age. Pain: Complains of pain in chest Pain currently is 4 out of 10 on a pain scale. Quality of pain is described as aching, sharp. Neuro: No deficits noted. Level of Consciousness is awake, alert, obeys commands, Oriented to person, place, time, situation, Appropriate for age. Cardiovascular: Reports chest pain, htn Heart tones S1 S2 present Capillary refill < 3 seconds in bilateral fingers Patient's skin is warm and dry. Rhythm is sinus rhythm. Respiratory: Airway is patent Trachea midline Respiratory effort is even, unlabored, Respiratory pattern is regular, symmetrical, Breath sounds are clear bilaterally. GI: No signs and/or symptoms were reported involving the gastrointestinal system. : No signs and/or symptoms were reported regarding the genitourinary system. EENT: No signs and/or symptoms were reported regarding the EENT system. Derm: No signs and/or symptoms reported regarding the dermatologic system. Musculoskeletal: No signs and/or symptoms reported regarding the musculoskeletal system. 23:46 Reassessment: Patient appears in no apparent distress at this time. Patient and/or bm8 family updated on plan of care and expected duration. Pain level reassessed. Patient is alert, oriented x 3, equal unlabored respirations, skin warm/dry/pink. pt is resting with eyes closed breathing is even unlabored with symmetrical rise and fall of chest, easily rousable, denies pain. Patient denies pain at this time. Patient states feeling better. Patient states symptoms have improved. Vital Signs: 19:50 BP 153 / 104; Pulse 81; Resp 16; Temp 97.5; Pulse Ox 100% on R/A; Weight 83.01 kg; hb Height 5 ft. 4 in. ; Pain 4/10; 23:11 BP 166 / 109; Pulse 71; Resp 16; Temp 97.5; Pulse Ox 98% ; Pain 4/10; bm8 23:46 BP 147 / 97; Pulse 66; Resp 18; Temp 97.5; Pulse Ox 98% ; Pain 0/10; bm8 19:50 Body Mass Index 31.41 (83.01 kg, 162.56 cm) hb 19:50 Pain Scale: Adult hb 23:11 Pain Scale: Adult bm8 23:46 Pain Scale: Adult bm8 [place] Coma Score: 23:11 Eye Response: spontaneous(4). Motor Response: obeys commands(6). Verbal Response: bm8 oriented(5). Total: 15. 23:46 Eye Response: spontaneous(4). Motor Response: obeys commands(6). Verbal Response: bm8 oriented(5). Total: 15. ED Course: 19:35 Patient arrived in ED. ra3 19:48 Josey Mcdonnell FNP-C is [facility]. kb 19:48 Cy Uriarte MD is Attending Physician. kb 19:51 Triage completed. hb 19:52 Arm band placed on. hb 20:59 Chest Single View XRAY In Process Unspecified. EDMS 23:01 Basic Metabolic Panel Sent. vk 23:01 CBC with Diff Sent. vk 23:02 Hepatic Function Sent. vk 23:02 Magnesium Sent. vk 23:02 Protime (+inr) Sent. vk 23:02 Ptt, Activated Sent. vk 23:02 Troponin High Sensitivity Sent. vk 23:03 Inserted saline lock: 20 gauge in right antecubital area, using aseptic technique. vk Blood collected. Flushed with 10 mL NS. 23:04 Initial lab(s) drawn, by me, sent to lab. vk 23:11 Dario Ventura, RN is Primary Nurse. bm8 23:11 Patient has correct armband on for positive identification. Bed in low position. Call bm8 light in reach. Side rails up X 1. Adult w/ patient. Client placed on continuous cardiac and pulse oximetry monitoring. NIBP monitoring applied. youth nutritional monitor on. Pulse ox on. NIBP on. Door closed. Warm blanket given. Pillow given. Verbal reassurance given. Head of bed elevated. 23:11 No provider procedures requiring assistance completed. Patient maintains SpO2 bm8 saturation greater than 95% on room air. 08/31 00:06 Provided Education on: post er care. bm8 00:06 IV discontinued, intact, bleeding controlled, No redness/swelling at site. Pressure bm8 dressing applied. Administered Medications: 08/30 23:56 Drug: Potassium Chloride PO 40 mEq PO once Route: PO; bm8 23:56 Follow up: Response: Medication Administered at Departure bm8 Medication: 23:11 VIS not applicable for this client. bm8 Outcome: 23:53 Discharge ordered by MD. landis 08/31 00:06 Discharged to home ambulatory, bm8 Condition: stable Discharge instructions given to patient, Instructed on discharge instructions, follow up and referral plans. no drinking with medication, no driving heavy equipment, medication usage, safety practices, Demonstrated understanding of instructions, follow-up care, medications, 00:07 Patient left the ED. bm8 Signatures: Dispatcher [employer] [facility] Josey Mcdonnell, MEASUREMENT DEPARTMENT CHIEF CLERK-C MEASUREMENT DEPARTMENT CHIEF CLERK-Jennifer Marques, RN RN hb Anne Julien ra3 Louise Watt Brad, RN RN bm8 Corrections: (The following items were deleted from the chart) 08/30 19:54 19:50 Pulse 81bpm; Resp 16bpm; Pulse Ox 100% RA; Temp 97.5F; hb hb 19:54 19:51 Social history: Smoking status: Patient denies any tobacco usage or history of. hbhb 21:38 19:50 Chief complaint: BP today 177/110, 184/128 and was feeling like he was going to hb pass out. hb
[2024-08-31 01:21] VITALS: TEMP 97.5
[2024-08-31 01:26] VITALS: O2SAT 98
[2024-08-31 01:32] VITALS: BP 147/97
--- NOTE | 2024-08-31 12:10 | EKG ---
Test Date: 2024-08-30 Test Time: 23:09:32 Electrical Accessories Ii Assembler: NURYS MEASUREMENT RESULTS: Intervals: Rate: 65 IA: 150 QRSD: 86 QT: 410 QTc: 426 [place]: P: 50 IA: 150 QRS: 66 T: 59 INTERPRETIVE STATEMENTS: Normal sinus rhythm Normal ECG Compared to ECG 05/17/2024 10:10:01 No significant changes Electronically Signed On 08-31-24 12:09:36 MANAGER PATIENT by [place]
== END 2024-08-31 00:07 | disposition home or self-care (01) ==
LOC: ER 19:31
DX: I10 Essential (primary) hypertension (principal); F17.210 Nicotine dependence, cigarettes, uncomplicated
CPT/HCPCS: 36415; 71045; 80048; 80076; 83735; 84484; 85025; 85610; 85730; 93005; 99284